=== PATIENT | male | born 1940 | race Caucasian/White ===

== ENCOUNTER 2020-09-04 09:01 | Observation (INO) ==
--- NOTE | 2020-07-01 16:09 | PAT Medication Instructions ---
Medication Instructions Date of Service July 01, 2020 Home Medications alprazolam [Xanax] 1 - 2 mg PO HS PRN aspirin [Aspir-81] 81 mg PO QAM atorvastatin 40 mg PO PM carvedilol 6.25 mg PO QAM celecoxib [Celebrex] 200 mg PO QAM cholecalciferol (vitamin D3) 125 mcg PO QAM cyanocobalamin (vitamin B-12) 2,500 mcg SUBLINGUAL QAM dutasteride 0.5 mg PO QAM fenofibrate nanocrystallized 145 mg PO QAM gabapentin 100 mg PO QAM gabapentin 100 mg PO QPM gabapentin 200 mg PO HS glipizide 10 mg PO QAM lisinopril 5 mg PO QAM kylrykjzamef-rdog-hzziy acid [Centrum] 1 tab PO QAM naproxen sodium [Aleve] 220 mg PO BID PRN omeprazole 40 mg PO QAM prednisone 100 mg PO HS tamsulosin 0.4 mg PO QAM tramadol 50 mg PO BID PRN ASK your surgeon for instructions celecoxib [Celebrex] 200 mg PO QAM naproxen sodium [Aleve] 220 mg PO BID PRN STOP taking 48 hours before surgery fenofibrate nanocrystallized 145 mg PO QAM DO NOT take the morning of surgery cholecalciferol (vitamin D3) 125 mcg PO QAM cyanocobalamin (vitamin B-12) 2,500 mcg SUBLINGUAL QAM glipizide 10 mg PO QAM lisinopril 5 mg PO QAM svvoacfjdyyz-wwcs-icwnk acid [Centrum] 1 tab PO QAM Take morning of surgery With a small sip of water, OTHERWISE NOTHING TO EAT OR DRINK AFTER MIDNIGHT: aspirin [Aspir-81] 81 mg PO QAM carvedilol 6.25 mg PO QAM dutasteride 0.5 mg PO QAM gabapentin 100 mg PO QAM omeprazole 40 mg PO QAM tamsulosin 0.4 mg PO QAM tramadol 50 mg PO BID PRN (if needed, may be taken up to four hours before surgery) Take evening before surgery alprazolam [Xanax] 1 - 2 mg PO HS PRN atorvastatin 40 mg PO PM gabapentin 100 mg PO QPM gabapentin 200 mg PO HS prednisone 100 mg PO HS tramadol 50 mg PO BID PRN (if needed) Other Notes If you have any questions please call us at [phone] or [phone] or [phone] or [phone]
--- NOTE | 2020-07-06 12:49 | Anesthesiology Consultation ---
Date of Service July 06, 2020 Assessment & Plan (1) Encounter for pre-operative examination: Chart Review Chart Review: Pending: Refer to Additional Notes / Consult section (awaiting surgeon ordered PCP and cardio clearances and preop Covid testing ) and Patient seen in Pre Admission Testing Awaiting surgeon ordered cardio clearance and PCP clearance. Will fax EKG to cardio office for review at clearance appt Per PAT appt on 07/06/20, pt resides in [facility] -travels to [facility] for medical appts. Pt usually does not wear mask in public. No known Covid positive contacts or Covid related symptoms. Educated patient to follow up with surgeon's office regarding Covid testing. Educated on importance of self quarantining, social distancing and wearing mask in public both for the patient and household contacts. Teaching & Discussion Pre-Anesthesia Teaching/Discussion Notes: Instructed NPO after midnight before surgery,except medications with 15 cc of water. Medication instructions provided according to the PAT guidelines. History Surgery Operation Date: 08/07/20 07:15 Proposed Procedures p Left Total Knee Arthroplasty - Mark Alcocer DO Height/Weight Height: 5 ft 8.5 in Weight: 89.4 kg Allergies Allergy/AdvReac Type Severity Reaction Status Date / Time No Known Allergies Allergy Verified 06/25/20 11:19 Medications Home Medications Medication Instructions Recorded Confirmed Last Taken alprazolam [Xanax] 1 - 2 mg PO HS PRN 06/25/20 06/25/20 Unknown aspirin [Aspir-81] 81 mg PO QAM 06/25/20 06/25/20 Unknown atorvastatin 40 mg PO PM 06/25/20 06/25/20 Unknown carvedilol 6.25 mg PO QAM 06/25/20 06/25/20 Unknown celecoxib [Celebrex] 200 mg PO QAM 06/25/20 06/25/20 Unknown cholecalciferol (vitamin D3) 125 mcg PO QAM 06/25/20 06/25/20 Unknown [Vitamin D3] cyanocobalamin (vitamin B-12) 2,500 mcg SUBLINGUAL QAM 06/25/20 06/25/20 Unknown [Vitamin B-12] dutasteride 0.5 mg PO QAM 06/25/20 06/25/20 Unknown fenofibrate nanocrystallized 145 mg PO QAM 06/25/20 06/25/20 Unknown gabapentin 100 mg PO QAM 06/25/20 06/25/20 Unknown gabapentin 100 mg PO QPM 06/25/20 06/25/20 Unknown gabapentin 200 mg PO HS 06/25/20 06/25/20 Unknown glipizide 10 mg PO QAM 06/25/20 06/25/20 Unknown lisinopril 5 mg PO QAM 06/25/20 06/25/20 Unknown fbcgfzujrmmk-isge-itfrt acid 1 tab PO QAM 06/25/20 06/25/20 Unknown [Centrum] naproxen sodium [Aleve] 220 mg PO BID PRN 06/25/20 06/25/20 Unknown omeprazole 40 mg PO QAM 06/25/20 06/25/20 Unknown prednisone 100 mg PO HS 06/25/20 06/25/20 Unknown tamsulosin 0.4 mg PO QAM 06/25/20 06/25/20 Unknown tramadol 50 mg PO BID PRN 06/25/20 06/25/20 Unknown Past Medical History Medical History CAD (coronary artery disease) S/p heart stent 1994 S/p 3 vessel CABG around 2015 Chronic back pain Chronic steroid use unsure why he takes Prednisone daily Diabetes mellitus, type 2 NIDDM- glucose fluctuates GERD (gastroesophageal reflux disease) Well controlled and stable Hx of concussion ~2016- no residual issues Hyperlipidemia Hypertension Myocardial Infarction ~2015 Exercise / Class Metabolic Activity III < 4 Walking/Shop/Light housework (no chest pain or SOB with short distances flat surface ambulation- activity limited due to knee and back pain ) Past Family History Family History Other No family history of adverse response to anesthesia Past Surgical History Surgical History History of cardiac cath History of cataract surgery History of colonoscopy History of coronary artery bypass graft x3 vessels at [facility]. follows with [facility] Cardiology. History of esophagogastroduodenoscopy (EGD) History of heart artery stent x1 stent. ~1994 History of tonsillectomy Past Anesthesia History No Hx of Anesthesia Complications and No Family Hx of Anesthesia Complications History of PONV No Hx of PONV and No Hx of Motion Sickness Social History Smoking Status: Never smoker Do You Dip or Chew Tobacco: No Hx Alcohol Use: Yes alcohol intake frequency: a few times a month Hx Substance Use: No substance use type: does not use Review of Systems Chronic HARLEY- stable Patient denies chest pain, shortness of breath at rest, cough, wheezing, palpitations. No hx of seizures, stroke, apnea/snoring. No hx of blood clots or blood transfusions Physical Exam Vital Signs VITALS BP 108/64 P 63 TEMP 98.2 SP02 97% RESP 16 Constitutional no acute distress ENMT Mouth: no TMJ clicking Thyromental Distance: > or= 3.5 Finger Breadths (3.5) Mallampati Class: I Full top denture Most teeth on bottom missing Neck + limited neck extension Respiratory normal respiratory effort; no respiratory distress Auscultation: lungs clear to auscultation bilaterally; no wheezes Cardiovascular Rate/Rhythm: regular rate and regular rhythm Heart Sounds: no murmur Vessels: no carotid bruit Musculoskeletal Spine: no pain with cervical ROM Neurologic moves all extremities Psychiatric Orientation: alert Testing Laboratory Results 07/06/20 13:15 07/06/20 13:15 PT 11.4 Seconds (9.0-12.0) 07/06/20 13:15 INR 1.1 (0.9-1.1) 07/06/20 13:15 APTT 23.8 Seconds (21.0-31.0) 07/06/20 13:15 Hemoglobin A1c 7.6 % (4.5-5.6) H 07/06/20 13:15 Urine Color Dark Yellow 07/06/20 13:15 Urine Appearance Clear (Clear) 07/06/20 13:15 Urine pH 5.0 (4.5-7.5) 07/06/20 13:15 Ur Specific [place] 1.024 (1.000-1.030) 07/06/20 13:15 Urine Protein Trace (Negative) H 07/06/20 13:15 Urine Glucose (UA) Negative (Negative) 07/06/20 13:15 Urine Ketones Negative (Negative) 07/06/20 13:15 Urine Nitrite Negative (Negative) 07/06/20 13:15 Ur Leukocyte Esterase Negative (Negative) 07/06/20 13:15 Urine WBC (Auto) 1-5 /hpf (0-5) 07/06/20 13:15 Urine RBC (Auto) 0-4 /hpf (0-4) 07/06/20 13:15 U Hyaline Cast (Auto) 1-5 /lpf (0-5) 07/06/20 13:15 U Epithel Cells (Auto) 10-20 /lpf (0-5) H 07/06/20 13:15 Urine Bacteria (Auto) Negative (Negative) 07/06/20 13:15 Blood Type A Positive 07/06/20 13:15 Antibody Screen NEGATIVE 07/06/20 13:15 Electrocardiogram Date: 07/06/20 Findings: + NSR @ (60) Low voltage QRS. Possible old septal and possible old lateral infarct. No previous EKGs for comparison Chest X-Ray Date: 07/06/20 Findings: + NAD and + cardiomegaly (mild) Stress Test Date: 01/15/20 Type: exercise (ECHO) Resting EF: 45 to 50% Resting EKG- NSR- no evidence of myocardial ischemia. Poor R wave progression. MPHR =90%. Resting echo demonstrates abnormal wall motionapical inferoseptal hypokinesis and mid anterior septal hypokinesis. Improved wall motion and mid anterior septal segment with dobutamine. Conclusion: Dobutamine stress echocardiogram demonstrates apical inferoseptal infarction in mid anterior septal viability. No clear-cut evidence for ischemia.
[2020-07-06 14:04] LABS: Basophils # (auto) 0.03 K/uL (0-0.2); Basophils % (auto) 0.7 %; Eosinophils % (auto) 2.5 %; Hematocrit (blood only) 36.4 % (42-52); Hemoglobin 12.6 g/dL (14.0-18.0); Immature Granulocytes # (auto) 0.01 K/uL (0.00-0.02); Immature Granulocytes % (auto) 0.2 %; Lymphocytes # (auto) 1.18 K/uL (1.2-3.4); Lymphocytes % (auto) 29.1 %; Mean Corpuscular Hemoglobin 31.7 pg (25-34); Mean Corpuscular Hgb Conc 34.6 g/dL (32-36); Mean Corpuscular Volume 91.7 fL (80-100); Mean Platelet Volume 9.7 fL (7.4-10.4); Monocytes # (auto) 0.31 K/uL (0.11-0.59); Monocytes % (auto) 7.7 %; Neutrophils # (auto) 2.42 K/uL (1.4-6.5); Neutrophils % (auto) 59.8 %; Platelet Count 174 K/uL (130-400); RDW Coefficient of Variation 12.8 % (11.5-14.5); Red Blood Count 3.97 M/uL (4.7-6.1); White Blood Count 4.05 K/uL (4.8-10.8)
--- NOTE | 2020-07-06 14:06 | XRay Report ---
XR chest Pre-admission PA/Lat CLINICAL HISTORY: Preoperative evaluation. COMPARISON STUDY: No previous studies for comparison. FINDINGS: Lung volumes are normal. Lungs are clear. There is no pneumothorax or pleural effusion. Mil d cardiomegaly is noted. There are median sternotomy wires. Mediastinal contours are normal. There is no evidence for pulmonary edema. IMPRESSION: 1. No acute cardiopulmonary findings. 2. Mild cardiomegaly. ACT 112: Negative or not required by law. Electronically signed by: Kota Decker M.D. 07/06/2020 2:04 PM
[2020-07-06 14:08] LABS: Estimated Average Glucose 171 mg/dl; Hemoglobin A1C 7.6 % (4.5-5.6)
[2020-07-06 14:20] LABS: INR 1.1 (0.9-1.1); Partial Thromboplastin Ratio 0.9; Partial Thromboplastin Time 23.8 Seconds (21.0-31.0); Prothrombin Time 11.4 Seconds (9.0-12.0)
[2020-07-06 14:37] LABS: Appearance Urine Clear (Clear); Bacteria Urine Automated Negative (Negative); Bilirubin Urine Negative (Negative); Blood Urine Negative (Negative); Color Urine Dark Yellow; Glucose Urine UA Negative (Negative); Ketones Urine Negative (Negative); Leukocyte Esterase Urine Negative (Negative); Nitrite Urine Negative (Negative); Protein Urine Trace (Negative); RBC Urine Automated 0-4 /hpf (0-4); Specific Gravity Urine 1.024 (1.000-1.030); Urobilinogen Urine Negative (Negative)
[2020-07-06 14:45] LABS: Albumin Level 3.7 gm/dl (3.4-5.0); BUN Creatinine Ratio 16.6 (10-20); Creatinine Clr Calc Pharmacy 41.1 ml/min; Est GFR (African American) 47.5; Potassium 4.6 mmol/L (3.5-5.1)
--- NOTE | 2020-07-06 15:33 | Electrocardiogram Report ---
Test Reason : Blood Pressure : / mmHG Vent. Rate : 060 BPM Atrial Rate : 060 BPM P-R Int : 186 ms QRS Dur : 088 ms QT Int : 400 ms P-R-T Axes : 063 066 119 degrees QTc Int : 400 ms Normal sinus rhythm Low voltage QRS Possible Old Septal infarct Possible Old Lateral infarct Abnormal ECG No previous ECGs available Confirmed by Wesley Kaye ([id number]) on 07/06/2020 3:33:13 PM Referred By: Mark Alcocer Confirmed By:Wesley Kaye
--- NOTE | 2020-09-03 16:37 | History & Physical Report ---
Date of Service September 03, 2020 Assessment & Plan (1) Unilateral primary osteoarthritis, left knee: Schedule a Left Total Knee Arthroplasty for 09.04.2020. All potential risks, benefits, complications, alternatives, and rehab have been discussed with the patient and he wishes to proceed. Will plan for home with home health upon d/c with ASA 81 mg BID x 30 days for post op DVT prophylaxis. (2) Genu varum of left lower extremity: History of Present Illness Chief Complaint: left knee pain Primary Care Provider: NO PCP This is a patient with chronic, worsening left knee pain with worsening deformity noted. He was treated conservatively for knee osteoarthritis but failed all conservative management. He is now being set up for surgical man agement. Allergies Allergy/AdvReac Type Severity Reaction Status Date / Time No Known Allergies Allergy Verified 08/21/20 10:11 Home Medications Home Medications Medication Instructions Recorded Confirmed Type alprazolam [Xanax] 1 - 2 mg PO HS PRN 06/25/20 08/21/20 History aspirin [Aspir-81] 81 mg PO QAM 06/25/20 08/21/20 History atorvastatin 40 mg PO PM 06/25/20 08/21/20 History carvedilol 6.25 mg PO QAM 06/25/20 08/21/20 History celecoxib [Celebrex] 200 mg PO QAM 06/25/20 08/21/20 History cholecalciferol (vitamin D3) 125 mcg PO QAM 06/25/20 08/21/20 History [Vitamin D3] cyanocobalamin (vitamin B-12) 2,500 mcg SUBLINGUAL QAM 06/25/20 08/21/20 History [Vitamin B-12] dutasteride 0.5 mg PO QAM 06/25/20 08/21/20 History fenofibrate nanocrystallized 145 mg PO QAM 06/25/20 08/21/20 History gabapentin 100 mg PO QAM 06/25/20 08/21/20 History gabapentin 100 mg PO QPM 06/25/20 08/21/20 History gabapentin 200 mg PO HS 06/25/20 08/21/20 History glipizide 10 mg PO QAM 06/25/20 08/21/20 History lisinopril 5 mg PO QAM 06/25/20 08/21/20 History zojpboddbdck-cfhe-qeqvd acid 1 tab PO QAM 06/25/20 08/21/20 History [Centrum] naproxen sodium [Aleve] 220 mg PO BID PRN 06/25/20 08/21/20 History omeprazole 40 mg PO QAM 06/25/20 08/21/20 History tamsulosin 0.4 mg PO QAM 06/25/20 08/21/20 History tramadol 50 mg PO BID PRN 06/25/20 08/21/20 History Past Med/Surg History Medical History (Updated 09/03/20 @ 16:33 by Zafar Kemp PA-C) CAD (coronary artery disease) S/p heart stent 1994 S/p 3 vessel CABG around 2015 Chronic back pain Diabetes mellitus, type 2 NIDDM- glucose fluctuates GERD (gastroesophageal reflux disease) Well controlled and stable Hx of concussion ~2016- no residual issues Hyperlipidemia Hypertension Lump in the groin left> was on abx, now resolving> reason procedure was rescheduled Myocardial Infarction ~2015 Surgical History (Updated 08/21/20 @ 10:37 by Elaina Eugene RN) History of cardiac cath 1994 History of cataract surgery History of colonoscopy History of coronary artery bypass graft x3 vessels at [facility]. follows with [facility] Cardiology. History of esophagogastroduodenoscopy (EGD) History of heart artery stent x1 stent. ~1994 History of tonsillectomy Family History Other No family history of adverse response to anesthesia Social History Smoking Status: Never smoker Second Hand Exposure: No; Do You Dip or Chew Tobacco: No; Tobacco Cessation Education Requested by Patient: No Hx Alcohol Use: Yes Alcohol type: beer Hx Substance Use: No Preferred Language: Croatian Communication Ability: Effective Social Worker School Required: No Beliefs That Will Affect Care: None Current Living Situation: Alone Current Living Situation Comment: advised to speak to surgeon about post op care since he lives alone Other Information That Helps Us Care for You: No Feels Safe at Home: Yes Safety Concerns: Feels Safe At This Time Assistive Devices: Denture - Upper Assistive Devices Comment: poor condition lower teeth (denies infection and abcesses) Physical Exam Constitutional: well developed and well nourished; no acute distress ENMT: external ear and nose normal, oropharynx normal Neck: trachea midline, no thyromegaly Respiratory: normal respiratory effort, lungs clear to auscultation Cardiovascular: Rate/Rhythm: regular rate and regular rhythm Gastrointestinal (Abdomen): normal bowel sounds, soft, nontender, no hepatosplenomegaly Musculoskeletal: Gait: + antalgic gait (left) Knee: + joint line tenderness (left medial joint line) and + varus alignment (left); no skin erythema and no ecchymosis Skin: no rashes, warm and dry Neurologic: normal touch/pain/proprioception Psychiatric: A+Ox3, euthymic affect Speech: normal rate/rhythm/volume of speech Lymphatic: no cervical or axillary lymphadenopathy
[~2020-09-04 09:01] MED LIST: ACETAMINOPHEN 500 MG TAB PO SCH; BUPIVACAINE 0.5 % 5 MG/1 ML PF 10ML VIAL ONE; CeleBREX 200 MG CAP PO SCH; FAMOTIDINE 20 MG TAB PO SCH; GABAPENTIN 300 MG CAP PO SCH; LR 500ML BOLUS, THEN 15ML/HR IV SCH; METOCLOPRAMIDE HCL 10 MG TABLET PO SCH; SODIUM CHLORIDE 0.9% 1,000 ML IV SCH; ceFAZolin 2000MG 2,000 MG/15 ML SYR IV SCH; dexAMETHasone 4 MG TAB PO SCH
[2020-09-04] MEDS ORDERED: ACETAMINOPHEN 500 MG TAB ONE (09:43)
[2020-09-04] MEDS ORDERED: CeleBREX 200 MG CAP ONE (09:43)
[2020-09-04] MEDS ORDERED: METOCLOPRAMIDE HCL 10 MG TABLET ONE (09:43)
[2020-09-04] MEDS ORDERED: FAMOTIDINE 20 MG TAB ONE (09:44)
[2020-09-04] MEDS ORDERED: GABAPENTIN 300 MG CAP ONE (09:44)
[2020-09-04] MEDS ORDERED: dexAMETHasone 4 MG TAB PO ONE (09:45)
[2020-09-04] MEDS ORDERED: ceFAZolin 2,000 MG/15 ML IV PUSH IV ONE (09:45)
[2020-09-04] MEDS ORDERED: ONDANSETRON INJ 2 MG/ML 2 ML VIAL ONE (09:46)
[2020-09-04] MEDS ORDERED: MIDAZOLAM HCL 1 MG/ML 2ML VIAL ONE (09:46)
[2020-09-04] MEDS ORDERED: fentaNYL citrate 100 MCG/2 ML VIAL ONE (09:46)
[2020-09-04] MEDS ORDERED: LIDOCAINE HCL 2% 2 ML VIAL/AMP(20MG/ML) INFIL ONE (09:46)
[2020-09-04] MEDS ORDERED: PROPOFOL IV EMULSION 10 MG/ML 20 ML VIAL IV ONE ×3 (09:46→12:38)
[2020-09-04] MEDS ORDERED: TRANEXAMIC ACID / 0.7% NACL 1000MG/100ML BAG IV ONE (09:46)
[2020-09-04] MEDS ORDERED: fentaNYL citrate 100 MCG/2 ML VIAL IV PRN (10:20)
[2020-09-04] MEDS ORDERED: ATROPINE SULFATE 0.1 MG/ML 10ML SYR IV PRN (10:20)
[2020-09-04] MEDS ORDERED: ePHEDrine sulfate 50 MG/ML AMP IV PRN (10:20)
[2020-09-04] MEDS ORDERED: ONDANSETRON INJ 2 MG/ML 2 ML VIAL IV PRN ×2 (10:20→15:27)
--- NOTE | 2020-09-04 10:44 | History & Physical Bridge Note ---
Date of Service September 04, 2020 History & Physical Bridge Note I have examined the patient, reviewed the History & Physical and in the interval since the performance of the History & Physical I have noted the following changes of clinical significance: no changes noted
[2020-09-04] MEDS ORDERED: BACITRACIN INJ 50,000 UNIT VIAL ONE (10:58)
[2020-09-04] MEDS ORDERED: ORTHO JOINT ANESTHETIC ONE (11:59)
[2020-09-04] MEDS ORDERED: ROPIVACAINE 0.5% HCL/PF 150 MG, BUPIVACAINE 0.5% MPF 30 ML, EPINEPHrine 30MG/30ML (OR U... INSTIL SCH (12:05)
--- NOTE | 2020-09-04 13:32 | Post Operative Brief Note ---
Immediate Post Op Note v1 Date of Surgery September 04, 2020 Pre & Post Diagnosis Operation Date: 08/07/20 07:15 <No data on this case meets the specified criteria> Operation Date: 09/04/20 10:35 Pre-Op Diagnosis: Unilateral Primary Osteoarthritis left knee, Left Knee genu varum, degenerative joint disease left knee, flexion contracture, left knee pain Post-Op Diagnosis: Unilateral Primary Osteoarthritis left knee, Left Knee genu varum, degenerative joint disease left knee, flexion contracture, left knee pain I identified the patient and participated in the time-out.: Yes Procedure Operation Date: 08/07/20 07:15 <No data on this case meets the specified criteria> Operation Date: 09/04/20 10:35 Actual Procedures p Left cemented total Knee Arthroplasty with Patterson and nephew journey 2 with MRI matched blocks; femur size 7, tibia size 6, posterior stabilized polyethylene size 10 mm, patella size 35 mm, fractional lengthening medial collateral ligament (Left) - Mark Alcocer DO Surgeon Mark Alcocer DO Hearing Impaired Teacher Zafar Kemp PA-C Estimated Blood Loss 15 Findings Consistent with Post-Op Diagnosis Specimens Bone and tissue left knee Drains Hemovac Drain Anesthesia Type Spinal MAC Complications none Disposition Accompanied Patient To Recovery: No Disposition: Recovery Room
--- NOTE | 2020-09-04 13:54 | Operative Report (OR) ---
DATE OF OPERATION: 09/04/2020 PREOPERATIVE DIAGNOSES: 1. Left knee osteoarthritis. 2. Left knee degenerative joint disease. 3. Genu varum. 4. Flexion contracture. 5. Left knee pain. POSTOPERATIVE DIAGNOSES: Same. PROCEDURE: 1. Left total knee arthroplasty using an MRI matched Journey II with blocks, size 7 femur, size 6 tibia, 10 mm posterior stabilized polyethylene and a 35 mm patella, cemented total knee arthroplasty. 2. Fractional lengthening of the medial collateral ligament. SURGEON: Mark Alcocer DO. RESIDENTIAL ELECTRICIAN: Zafar Kemp PA-C who was present for patient positioning, sterile prep and drape, management of retractors and instruments. He was present through the critical portions of the case including wound closure, application of sterile dressing and transport of the patient to recovery. ANESTHESIA: Spinal, MAC with adductor canal block and intraarticular local. SPECIMENS: Bone and tissue, left knee. DRAINS: Hemovac x2. COMPLICATIONS: None. BLOOD LOSS: 15 mL PERTINENT HISTORY: This is an 79-year-old gentleman who has had progressive chronic and worsening pain, deformity and loss of function of the left knee. He attempted and failed conservative management for several years including use of an assistive device, use of a brace, anti-inflammatories, rest, intra-articular steroid injections and hyaluronic acid injections, physical therapy and physician directed home exercises. The patient had progressive symptoms with inability to control symptoms with near constant pain. The patient had radiographs, which demonstrate genu varum, complete loss of medial joint space, marginal osteophytes, subchondral sclerosis and clinical findings of flexion contracture. The patient was then scheduled for surgery as indicated. All potential risks, benefits, complications, alternatives, rehab, potential for incomplete relief of symptoms, need for further surgery, DVT, PE, , persistent pain, swelling, scarring, weakness, neurovascular injury, wound complications, hardware failure, nonunion, malunion and bone fracture were discussed with the patient. The patient decided to proceed with the procedure as indicated. PROCEDURE: The patient was taken to the Operating Suite and placed supine on the Operating Room table after the patient had been administered spinal epidural anesthetic and femoral nerve sheath catheter in the preop holding area. The patient was sedated. Proper operative site was identified. The tourniquet was placed high on the left lower extremity. Left lower extremity was then sterilely prepped and draped in the usual fashion. Elevated and exsanguinated with an Esmarch bandage. Tourniquet inflated to 350 mmHg. Next a midline 10-blade scalpel incision was made directly over the middle one-third of the patella extending to the level of the tibial tubercle. The incision was deepened through the subcutaneous tissue and meticulous hemostasis with electrocautery. Full-thickness skin flaps were developed taking care to avoid neurovascular bundles. Next, median parapatellar capsular incision was made 10-blade scalpel after the superior medial corner had been marked with a marking pen for later reapproximation. Next, patella was everted. Soft tissue releases were performed of the knee including along the anterior medial corner to the level of the MCL which was protected and released adjacent to the MCL with Solitario elevator. Fat pad was resected anteriorly and small half fitch portion of tissue was resected at the superior margin of the dermal articular surface. Next, the patella thickness was measured with caliper and held in everted position with Diogo. Next, sagittal saw was used to make orthogonal cuts to the level of the patellar nose. Caliper was used to remeasure the patella and the appropriate sized patellar button, in this case size 35mm was most appropriate. The alignment guide was then put in place. Peg holes were drilled and alignment guide was then removed. Next, the femoral cutting block was placed in the distal aspect of the femur and pinned in place. Next the distal femoral cut was made based off the patient's anatomy and MRI patient matched cutting block. Next, a size 7 distal 4-in-1 cutting block was tamped in place then stabilized with pins. Next, the appropriate soft tissue retraction was made and anterior chamfer and posterior chamfer cuts were made with the sagittal saw. Next, the 4-in-1 cutting block was then removed followed by removal of all bone fragments. Next, attention was then directed toward the proximal tibia. Blunt Sang was placed posterior to the tibia to protract it anteriorly and median and lateral sharp Sang retractors were placed. Soft tissue and portion of the menisci were then resected at this time and MRI matched proximal tibial cutting block was then pinned in place and proximal tibial cut was made with sagittal saw. Alignment guide was removed. Pins were removed and the proximal fragment of the tibia was then sharply excised and removed. Next, proximal tibial tray trial size 6 was then pinned in place and this was felt to be well matched for the patient's anatomy, pinned in place and keel punch was then utilized with mallet. Keel punch was then removed and cervical laminar microwave remote sensing scientist was then placed in the medial compartment. The lateral compartment was then inspected for osteophytes and soft tissue impingement. There was found to be none. I then switched to the lateral compartment and medial compartment was then debrided of any soft tissue impingement. Next the laminar microwave remote sensing scientist was removed and the femoral trial, in this case size 7 was then malleted in place, pinned and then femoral notch milling guide was then placed anteriorly. This was then reamed and then punched with sharp punch and mallet. Next, the distal aspect of the femur was then inserted in notch guide and size 10 mm poly was inserted, reduced. Patellar button was then placed in trial and range of motion was performed. Next after range of motion and stability test was performed the implants were found to be appropriate size. Trials were all removed. The posterior capsule was injected with Orthomix. Next the joint was then cleansed with pulsatile lavage using approximately 3 liters normal saline with Bacitracin additive. Next all bony surfaces were then suctioned and drained and standard cementing technique was performed and all excess cement was then removed from around the implant site. 35 mm posterior stabilized polyethylene bearing was implanted and checked for stability. The patellar button was then cemented in place and held in place with patellar clamp. Next, double lumen 10 Filipino Hemovac drain was then placed and exiting anterolaterally and the capsule was closed using interrupted #1 Vicryl sutures. The dermis was closed using buried interrupted 2-0 Vicryl and the skin closed with skin nirmal. A sterile compressive dressing was applied from the toes to the groin and overwrapped with Nima wrap. Tourniquet was released. The patient was awakened and taken to recovery in stable condition. I attest to the content of the Intraoperative Record and any orders documented therein. Any exceptions are noted below. RADHA
--- NOTE | 2020-09-04 14:27 | XRay Report ---
LEFT KNEE 2 VIEWS History: Left total knee arthroplasty. Degenerative arthritis. Postop. FINDINGS: The patient is status post a left total knee arthroplasty. The hardware is intact. No fract ure or dislocation. Skin nirmal and surgical drains are in place. IMPRESSION: Left total knee arthroplasty. No evidence for hardware complication. ACT 112: Negative or not required by law. Electronically signed by: Aleksander Hopkins M.D. 09/04/2020 2:26 PM
--- NOTE | 2020-09-04 14:49 | Anesthesiology Progress Note ---
Date of Service September 04, 2020 Anesthesia Post Procedure Vital Signs Vital Signs: Temp Pulse Pulse Resp BP BP Pulse Ox 09/04/20 14:40 60 20 108/61 98 09/04/20 14:30 97.3 F L 64 20 116/59 L 97 09/04/20 14:20 63 16 114/62 97 09/04/20 14:10 64 14 131/61 99 09/04/20 14:00 69 14 114/61 99 09/04/20 13:50 75 18 116/71 99 09/04/20 13:46 99.3 F 71 20 117/55 L 100 09/04/20 10:05 97.9 F 72 20 132/70 98 Transfer of Care Handoff Completed per policy Notes Mental Status: alert / awake / arousable and participated in evaluation Patient Amnestic to Procedure: Yes Nausea / Vomiting: adequately controlled Pain: adequately controlled Airway Patency, RR, SpO2: stable & adequate BP & HR: stable & adequate Hydration State: stable & adequate Neuraxial Anesthesia: was administered and sensory block is resolving Anesthetic Complications: no major complications apparent and Pt Satisfied with anesthetic care
[2020-09-04] MEDS ORDERED: MAGNESIUM HYDROXIDE SUSP 30 ML UDC PO PRN (15:27)
[2020-09-04] MEDS ORDERED: bisacodyL 10 MG SUPP PR PRN (15:27)
[2020-09-04] MEDS ORDERED: ALUMINUM/MAGNESIUM SUSP 30 ML UDC PO PRN (15:27)
[2020-09-04] MEDS ORDERED: traMADol HCL 50 MG TABLET PO PRN (15:27)
[2020-09-04] MEDS ORDERED: diphenhydrAMINE Capsule 25 MG CAP PO PRN (15:27)
[2020-09-04] MEDS ORDERED: KETOROLAC TROMETHAMINE 15 MG/ML VIAL IV PRN (15:27)
[2020-09-04] MEDS ORDERED: NALOXONE HCL 0.4 MG/1 ML VIAL/CARP IV PRN (15:27)
[2020-09-04] MEDS ORDERED: HYDROmorphone INJ 0.5 MG/0.5 ML SYR IV PRN (15:27)
[2020-09-04] MEDS ORDERED: METOCLOPRAMIDE HCL INJ 5 MG/ML 2 ML VIAL IV PRN (15:27)
[2020-09-04] MEDS ORDERED: PHARMACY GLYCEMIC MGMT CONSULT PRN (15:38)
[2020-09-04] MEDS ORDERED: INFLUENZA ADMINISTRATION CHARGE ONE (15:42)
[2020-09-04] MEDS ORDERED: INFLUENZA VIRUS QUAD VACCINE 0.5 ML SYR IM ONE (15:42)
[2020-09-04] MEDS: MISSING PHYSICIAN SIGNATURE ON ORDER SCH ×3 (15:45→15:47)
[2020-09-04] MEDS ORDERED: CARBOHYDRATES FOR HYPOGLYCEMIA PO PRN (16:00)
[2020-09-04] MEDS ORDERED: DEXTROSE 50% 50 ML SYRINGE IV PRN (16:00)
[2020-09-04] MEDS: SODIUM CHLORIDE 0.9% 1000ML 1,000 ML IV SCH (16:00)
[2020-09-04] MEDS ORDERED: INSULIN GLARGINE SOLOSTAR 100 UNITS/ML 3 ML PEN SC ONE ×2 (16:00→17:30)
[2020-09-04] MEDS ORDERED: GLUCAGON FOR INJ 1 MG VIAL IM PRN (16:00)
[2020-09-04] MEDS ORDERED: GLUCOSE 40% GEL 15 GM TUBE PO PRN (16:00)
[2020-09-04] MEDS ORDERED: GLUCOSE 10 TABS/TUBE PO PRN (16:00)
[2020-09-04] MEDS: DUTASTERIDE: ORDER AWAITING ACTION SCH ×2 (16:06→23:53)
--- NOTE | 2020-09-04 16:16 | Pharmacy Report ---
Glycemic Control Consultation - Date of Service September 04, 2020 - Scope Scope: Glycemic Pharmacist consulted for glycemic control and to write orders per [facility] inpatient glycemic control protocol. - Objective Weight: 89.721 kg Accuchecks BSG (last 24hrs): 09/04/20 09/04/20 09:44 13:51 POC Glucose 222 H 188 H HbA1c: Hemoglobin A1c 7.6 % (4.5-5.6) H 07/06/20 13:15 - Recent Pertinent Medications Outpatient Anti-diabetic Regimen: * glipizide 10 mg PO qAM * A1c = 7.6 % (07/06/20) - Assessment & Plan Assessment & Plan: ASSESSMENT: * is an 79 year old male POD #0 s/p left total knee arthroplasty * Received dexamethasone 8 mg PO x 1 + orthomix perioperatively * PMH includes type 2 DM, CAD w/ history of GA (2015), HTN, and hyperlipidemia * Fasting BSG of 222 mg/dL this morning and postoperative BSG of 181 mg/dL and 281 mg/dL before dinner * Will give one-time Lantus order of 30 units x 1 and add overnight checks for this evening PLAN FOR INPATIENT GLYCEMIC CONTROL: * Holding outpatient oral diabetes medications * Basal insulin * Lantus 30 units x 1 * Bolus insulin * NovoLog per scale ACHS or Q6hrs while NPO * Goal Range: Low 110 mg/dL - High 150 mg/dL * Correction Factor: 20 mg/dL/unit * Nutritional / Prandial insulin per carb ratio of 1 unit per 7 grams CHO consumed * Will add 0000 and 0400 checks this evening with same parameters * Please note that the plan above was derived based on current level of insulin resistance and hospital stress. These recommendations are appropriate for inpatient admission only. Plan of care upon discharge will need to be reassessed to avoid potential outpatient hypo/hyperglycemia. Thank you.
--- NOTE | 2020-09-04 16:39 | Hospitalist Consultation ---
Date of Consultation September 04, 2020 Assessment & Plan (1) Genu varum of left lower extremity: Status post total knee arthroplasties 09/04/2020 Dr. Alcocer (2) Diabetes mellitus, type 2: Patient typically takes glipizide Victoza and gabapentin for neuropathy. He will be on a glycemic consult management likely with basal bolus insulin mice in the hospital (3) CAD (coronary artery disease): Patient had a CABG as mentioned. He has had no unstable anginal symptoms and did have a preop stress test in January 2020 remains on carvedilol 6.25 only once a day lisinopril 5-day atorvastatin and aspirin. (4) BPH (benign prostatic hyperplasia): Patient is on Zosyn in the last arrived for BPH having no urinary symptoms prehospital. These will be continued History of Present Illness Attending Physician: Mark Alcocer DO History of Present Illness -year-old male status post left total knee arthroplasty by Dr. Alcocer today. Patient has a history of coronary disease status post CABG. He has had a preoperative dobutamine stress echo due to his arthritis which was unremarkable and this was in January 2020. He otherwise is stable postoperatively without any complaints or problems Allergies Allergy/AdvReac Type Severity Reaction Status Date / Time No Known Allergies Allergy Verified 09/04/20 09:57 Home Medications Home Medications Medication Instructions Recorded Confirmed Type alprazolam [Xanax] 1 - 2 mg PO HS PRN 06/25/20 09/04/20 History aspirin [Aspir-81] 81 mg PO QAM 06/25/20 09/04/20 History atorvastatin 40 mg PO PM 06/25/20 09/04/20 History carvedilol 6.25 mg PO QAM 06/25/20 09/04/20 History cholecalciferol (vitamin D3) 125 mcg PO QAM 06/25/20 09/04/20 History [Vitamin D3] cyanocobalamin (vitamin B-12) 2,500 mcg SUBLINGUAL QAM 06/25/20 09/04/20 History [Vitamin B-12] dutasteride 0.5 mg PO QAM 06/25/20 09/04/20 History fenofibrate nanocrystallized 145 mg PO QAM 06/25/20 09/04/20 History gabapentin 100 mg PO QAM 06/25/20 09/04/20 History gabapentin 100 mg PO QPM 06/25/20 09/04/20 History gabapentin 200 mg PO HS 06/25/20 09/04/20 History glipizide 10 mg PO QAM 06/25/20 09/04/20 History lisinopril 5 mg PO QAM 06/25/20 09/04/20 History sizrrqwtixmt-yulq-pdmni acid 1 tab PO QAM 06/25/20 09/04/20 History [Centrum] naproxen sodium [Aleve] 220 mg PO BID PRN 06/25/20 09/04/20 History omeprazole 40 mg PO QAM 06/25/20 09/04/20 History tamsulosin 0.4 mg PO QAM 06/25/20 09/04/20 History tramadol 50 mg PO BID PRN 06/25/20 09/04/20 History Patient History Medical History (Updated 09/04/20 @ 16:37 by Marvin Muro MD) CAD (coronary artery disease) S/p heart stent 1994 S/p 3 vessel CABG around 2015 Chronic back pain Diabetes mellitus, type 2 NIDDM- glucose fluctuates GERD (gastroesophageal reflux disease) Well controlled and stable Hx of concussion ~2016- no residual issues Hyperlipidemia Hypertension Lump in the groin left> was on abx, now resolving> reason procedure was rescheduled Myocardial Infarction ~2015 Surgical History History of cardiac cath 1994 History of cataract surgery History of colonoscopy History of coronary artery bypass graft x3 vessels at [facility]. follows with [facility] Cardiology. History of esophagogastroduodenoscopy (EGD) History of heart artery stent x1 stent. ~1994 History of tonsillectomy Family History Other No family history of adverse response to anesthesia Social History Smoking Status: Never smoker Second Hand Exposure: No; Do You Dip or Chew Tobacco: No; Tobacco Cessation Education Requested by Patient: No Hx Alcohol Use: Yes Alcohol type: beer Hx Substance Use: No Preferred Language: German Communication Ability: Effective Poultry Packer Required: No Beliefs That Will Affect Care: None Current Living Situation: Alone Current Living Situation Comment: advised to speak to surgeon about post op care since he lives alone Other Information That Helps Us Care for You: No Feels Safe at Home: Yes Safety Concerns: Feels Safe At This Time Assistive Devices: Denture - Upper Assistive Devices Comment: poor condition lower teeth (denies infection and abcesses) Review of Systems Review of Systems: Mild distress and fatigue no headache, blurry or double vision no speech or swallowing issues no chest pain, pressure or palpitations no shortness of breath, cough or wheezes no abdominal pain, nausea or vomiting, diarrhea or constipation no dysuria, hematuria or frequency Patient does have bilateral knee pain the left is worse than the right Persistent daily back pain worse with flexion in sitting down standing up no bruising, bleeding or rashes no focal signs of weakness or numbness or altered sensation no complaints of anxiety or depression. Physical Exam Physical Exam: The patient appeared well nourished and normally developed. Vital signs as documented. Head exam is normocephalic atraumatic no scleral icterus Neck is without JVD, thyromegaly, or carotid bruits. Lungs are clear to auscultation, no focal loss of breath sounds Cardiac exam, Rhythm is regular.. No murmurs, rubs or gallops. Abdominal exam reveals normal bowel sounds, soft non tender, no masses Extremities patient still amnestic from surgery likely with a nerve block capillary refill and warmth are intact distally Neurologic exam is alert and oriented, Skin is without bruises or rashes Psychologically is without concerns for anxiety or depression. Results & Data Results & Data ([facility]) Vital Signs (Past 12 Hours) Vital Signs Temp Pulse Pulse Resp BP BP Pulse Ox 09/04/20 16:12 97.3 F L 59 L 20 114/77 99 09/04/20 15:42 97.3 F L 61 16 118/74 99 09/04/20 15:10 97.5 F L 58 L 18 110/43 L 98 09/04/20 14:58 61 20 109/60 97 09/04/20 14:50 63 20 102/56 L 94 09/04/20 14:40 60 20 108/61 98 09/04/20 14:30 97.3 F L 64 20 116/59 L 97 09/04/20 14:20 63 16 114/62 97 09/04/20 14:10 64 14 131/61 99 09/04/20 14:00 69 14 114/61 99 09/04/20 13:50 75 18 116/71 99 09/04/20 13:46 99.3 F 71 20 117/55 L 100 09/04/20 10:05 97.9 F 72 20 132/70 98 PG Care Time/CCT Total # of Minutes Spent Total Time Spent with Patient: Total time spent is greater than 50% in coordination of care (as documented) at patient's floor/unit and/or counseling patient: Coding Level of Care Code 82425 Inpt Consult Level 3 Diagnoses Genu varum of left lower extremity M21.162 Diabetes mellitus, type 2 E11.9 CAD (coronary artery disease) I25.10 BPH (benign prostatic hyperplasia) N40.0
[2020-09-04] MEDS: ceFAZolin 2000MG 2,000 MG/15 ML SYR IV SCH (17:22)
[2020-09-04] MEDS: ACETAMINOPHEN 500 MG TAB PO SCH ×2 (17:22→20:52)
[2020-09-04] MEDS: INSULIN ASPART 100 UNITS/ML 3 ML PEN SC SCH ×3 (18:05→23:48)
[2020-09-04] MEDS ORDERED: TRANEXAMIC ACID / 0.7% NACL 1,000 MG/100 ML BAG IV SCH (20:00)
[2020-09-04] MEDS: DOCUSATE SODIUM 100 MG CAP PO SCH (20:51)
[2020-09-04] MEDS: SENNA 8.6 MG TAB PO SCH (20:51)
[2020-09-04] MEDS: ATORVASTATIN 40 MG TAB PO SCH (20:52)
[2020-09-04] MEDS: GABAPENTIN 100 MG CAP PO SCH (20:52)
[2020-09-04] MEDS ORDERED: GABAPENTIN 100 MG CAP PO SCH (21:00)
[2020-09-04] MEDS: ASPIRIN 81 MG ECTAB PO SCH (21:44)
[2020-09-04] MEDS: ALPRAZolam 0.5 MG TABLET PO PRN (23:42)
[2020-09-04] MEDS: traZODone HCL 100 MG TAB PO SCH (23:42)
[2020-09-05] MEDS: ceFAZolin 2000MG 2,000 MG/15 ML SYR IV SCH
[2020-09-05] MEDS: SODIUM CHLORIDE 0.9% 1000ML 1,000 ML IV SCH (02:02)
[2020-09-05] MEDS: INSULIN ASPART 100 UNITS/ML 3 ML PEN SC SCH ×5 (04:17→21:41)
[2020-09-05] MEDS: ACETAMINOPHEN 500 MG TAB PO SCH ×3 (05:49→21:51)
[2020-09-05] MEDS ORDERED: ROPIVACAINE 0.5% HCL/PF 150 MG, BUPIVACAINE 0.5% MPF 30 ML, EPINEPHrine 30MG/30ML (OR U... INSTIL SCH (06:00)
[2020-09-05 06:26] LABS: Hematocrit (blood only) 25.5 % (42-52); Hemoglobin 8.9 g/dL (14.0-18.0); Mean Corpuscular Hemoglobin 31.3 pg (25-34); Mean Corpuscular Hgb Conc 34.9 g/dL (32-36); Mean Corpuscular Volume 89.8 fL (80-100); Mean Platelet Volume 9.8 fL (7.4-10.4); Platelet Count 148 K/uL (130-400); RDW Coefficient of Variation 12.9 % (11.5-14.5); Red Blood Count 2.84 M/uL (4.7-6.1); White Blood Count 8.22 K/uL (4.8-10.8)
[2020-09-05 06:52] LABS: BUN Creatinine Ratio 16.6 (10-20); Calcium 8.1 mg/dl (8.5-10.1); Creatinine Clr Calc Pharmacy 34.7 ml/min; Est GFR (African American) 38.5; Est GFR (Non-African American) 33.2; Potassium 4.6 mmol/L (3.5-5.1)
[2020-09-05] MEDS ORDERED: carvediloL 6.25 MG TAB PO SCH (09:00)
[2020-09-05] MEDS ORDERED: glipiZIDE 5 MG TAB PO SCH (09:00)
[2020-09-05] MEDS ORDERED: lisinopril 5 MG TAB PO SCH (09:00)
--- NOTE | 2020-09-05 09:07 | Orthopedic Progress Note ---
Date of Service September 05, 2020 Assessment & Plan (1) Unilateral primary osteoarthritis, left knee: Stop day 1 status post left total knee arthroplasty. PT/OT protocols. Weightbearing as tolerated. DVT prophylaxis-aspirin p.o. twice daily, SCDs, KIKA goss. Pain management as written. DC planning-patient planning on home health services upon discharge. Admission and Anticipated Discharge Date Admission Date: September 04, 2020 Supervising Physician Co-Signing Physician Notes Patient seen and examined. Postop day 1 after his left total knee. He is doing extremely well. Mobilizing well and has excellent range of motion already. He denies any pain. He should be ready for discharge tomorrow. He will work on arranging a ride. Subjective Postop day 1 Patient sitting up at the bedside eating breakfast. Pain controlled. Denies shortness of breath, chest pain, lightheadedness. Physical Exam Physical Exam: Dressings are clean, dry, and intact. Calves are soft nontender. Neurovascular is intact. Toes are mobile. He has good dorsiflexion and plantarflexion of the left foot. Patient has had 50 mL out of the Hemovac from the latest shift. Results & Data ([facility]) Vital Signs (Past 12 Hours) Vital Signs Temp Pulse Resp BP Pulse Ox 09/05/20 07:45 36.8 C 67 16 93/58 L 96 09/05/20 03:55 36.5 C 71 16 90/51 L 97 09/04/20 23:49 36.6 C 64 16 94/55 L 98 Laboratory Results Laboratory Results WBC 8.22 K/uL (4.8-10.8) 09/05/20 05:50 RBC 2.84 M/uL (4.7-6.1) L 09/05/20 05:50 Hgb 8.9 g/dL (14.0-18.0) L 09/05/20 05:50 Hct 25.5 % (42-52) L 09/05/20 05:50 MCV 89.8 fL (80-100) 09/05/20 05:50 MCH 31.3 pg (25-34) 09/05/20 05:50 MCHC 34.9 g/dL (32-36) 09/05/20 05:50 RDW Std Deviation 42.0 fL (36.4-46.3) 09/05/20 05:50 RDW Coeff of Jim 12.9 % (11.5-14.5) 09/05/20 05:50 Plt Count 148 K/uL (130-400) 09/05/20 05:50 MPV 9.8 fL (7.4-10.4) 09/05/20 05:50 Immature Gran % (Auto) 0.2 % 07/06/20 13:15 Neut % (Auto) 59.8 % 07/06/20 13:15 Lymph % (Auto) 29.1 % 07/06/20 13:15 [place] % (Auto) 7.7 % 07/06/20 13:15 Eos % (Auto) 2.5 % 07/06/20 13:15 Baso % (Auto) 0.7 % 07/06/20 13:15 Neut # (Auto) 2.42 K/uL (1.4-6.5) 07/06/20 13:15 Lymph # (Auto) 1.18 K/uL (1.2-3.4) L 07/06/20 13:15 [place] # (Auto) 0.31 K/uL (0.11-0.59) 07/06/20 13:15 Eos # (Auto) 0.10 K/uL (0-0.5) 07/06/20 13:15 Baso # (Auto) 0.03 K/uL (0-0.2) 07/06/20 13:15 Immature Gran # (Auto) 0.01 K/uL (0.00-0.02) 07/06/20 13:15 PT 11.4 Seconds (9.0-12.0) 07/06/20 13:15 INR 1.1 (0.9-1.1) 07/06/20 13:15 APTT 23.8 Seconds (21.0-31.0) 07/06/20 13:15 PTT Ratio 0.9 07/06/20 13:15 Sodium 138 mmol/L (136-145) 09/05/20 05:50 Potassium 4.6 mmol/L (3.5-5.1) 09/05/20 05:50 Chloride 108 mmol/L (98-107) H 09/05/20 05:50 Carbon Dioxide 28 mmol/L (21-32) 09/05/20 05:50 Anion Gap 2.0 (3-11) L 09/05/20 05:50 BUN 31 mg/dl (7-18) H 09/05/20 05:50 Creatinine 1.87 mg/dl (0.6-1.4) H 09/05/20 05:50 Est Cr Clr Drug Dosing 34.7 ml/min 09/05/20 05:50 Est GFR ( Amer) 38.5 09/05/20 05:50 Est GFR (Non-Af Amer) 33.2 09/05/20 05:50 BUN/Creatinine Ratio 16.6 (-20) 09/05/20 05:50 Glucose 148 mg/dl (70-99) H 09/05/20 05:50 POC Glucose 136 mg/dl (70-99) H 09/05/20 07:47 Estimat Average Glucose 171 mg/dl 07/06/20 13:15 Hemoglobin A1c 7.6 % (4.5-5.6) H 07/06/20 13:15 Calcium 8.1 mg/dl (8.5-10.1) L 09/05/20 05:50 Albumin 3.7 gm/dl (3.4-5.0) 07/06/20 13:15 Urine Color Dark Yellow 07/06/20 13:15 Urine Appearance Clear (Clear) 07/06/20 13:15 Urine pH 5.0 (4.5-7.5) 07/06/20 13:15 Ur Specific [place] 1.024 (1.000-1.030) 07/06/20 13:15 Urine Protein Trace (Negative) H 07/06/20 13:15 Urine Glucose (UA) Negative (Negative) 07/06/20 13:15 Urine Ketones Negative (Negative) 07/06/20 13:15 Urine Blood Negative (Negative) 07/06/20 13:15 Urine Nitrite Negative (Negative) 07/06/20 13:15 Urine Bilirubin Negative (Negative) 07/06/20 13:15 Urine Urobilinogen Negative (Negative) 07/06/20 13:15 Ur Leukocyte Esterase Negative (Negative) 07/06/20 13:15 Urine WBC (Auto) 1-5 /hpf (0-5) 07/06/20 13:15 Urine RBC (Auto) 0-4 /hpf (0-4) 07/06/20 13:15 U Hyaline Cast (Auto) 1-5 /lpf (0-5) 07/06/20 13:15 U Epithel Cells (Auto) 10-20 /lpf (0-5) H 07/06/20 13:15 Urine Bacteria (Auto) Negative (Negative) 07/06/20 13:15 Blood Type A Positive 07/06/20 13:15 Antibody Screen NEGATIVE 07/06/20 13:15
[2020-09-05] MEDS: DOCUSATE SODIUM 100 MG CAP PO SCH ×2 (09:09→21:49)
[2020-09-05] MEDS: PANTOprazole 40 MG TAB PO SCH (09:09)
[2020-09-05] MEDS: CYANOCOBALAMIN (VITAMIN B-12) 2,500 MCG TAB.SUBL SL SCH (09:09)
[2020-09-05] MEDS: CEROVITE ADV FORMULA TAB PO SCH (09:10)
[2020-09-05] MEDS: FENOFIBRATE NANOCRYSTALLIZED 145 MG TABLET PO SCH (09:10)
[2020-09-05] MEDS: CHOLECALCIFEROL 1,000 UNITS 25 MCG TAB PO SCH (09:10)
[2020-09-05] MEDS: TAMSULOSIN HCL 0.4 MG CAP PO SCH (09:10)
[2020-09-05] MEDS: MULTIVITAMIN TAB PO SCH (09:11)
[2020-09-05] MEDS: GABAPENTIN 100 MG CAP PO SCH ×3 (09:11→21:46)
[2020-09-05] MEDS: ASPIRIN 81 MG ECTAB PO SCH ×2 (09:11→21:46)
[2020-09-05] MEDS: DUTASTERIDE: ORDER AWAITING ACTION SCH ×3 (09:12→23:54)
[2020-09-05] MEDS ORDERED: SODIUM CHLORIDE 0.9% 500 ML IV SCH (09:45)
--- NOTE | 2020-09-05 10:37 | Pharmacy Report ---
Pharmacy Glycemic Short Note 2 - Date of Service September 05, 2020 - Glycemic Short BSG Results (Last 24 hours): 09/04/20 09/04/20 09/04/20 13:51 17:25 17:26 Glucose POC Glucose 188 H 316 H* 281 H 09/04/20 09/04/20 09/04/20 20:32 20:34 23:46 Glucose POC Glucose 330 H* 322 H* 241 H 09/05/20 09/05/20 09/05/20 03:56 05:50 07:47 Glucose 148 H POC Glucose 187 H 136 H ASSESSMENT: * is an 79 year old male POD #0 s/p left total knee arthroplasty * Received dexamethasone 8 mg PO x 1 + orthomix perioperatively * PMH includes type 2 DM, CAD w/ history of [place] (2016), HTN, and hyperlipidemia * Fasting BSG of 222 mg/dL this morning and postoperative BSG of 181 mg/dL and 281 mg/dL before dinner * Will give one-time Lantus order of 30 units x 1 and add overnight checks for this evening 09/05 * Patient received total of 57 units of insulin yesterday, of which 30 were basal insulin to cover steroids * Fasting BSG much improved at 136 mg/dL - hold basal / may add scale for HS depending how BSGs trend * Continue same CF/CR for now / may need to loosen once steroids wear off PLAN FOR INPATIENT GLYCEMIC CONTROL: * Holding outpatient oral diabetes medications * Basal insulin * Lantus - 0-10 units HS based upon BSG value * Bolus insulin * NovoLog per scale ACHS or Q6hrs while NPO * Goal Range: Low 110 mg/dL - High 150 mg/dL * Correction Factor: 20 mg/dL/unit * Nutritional / Prandial insulin per carb ratio of 1 unit per 7 grams CHO consumed * Will add 0000 and 0400 checks this evening with same parameters PLAN FOR DISCHARGE: * A1c 7.6% - goal ~7% reasonable. Sulfonylureas such as glipizide should be used with caution in elderly population due to increased hypoglycemic effects. Would recommend continuation of home diabetic agent as long as patient is not reporting hypoglycemia.
--- NOTE | 2020-09-05 12:32 | Anesthesiology Progress Note ---
Date of Service September 05, 2020 Anesthesia Post Procedure Vital Signs Vital Signs: Temp Pulse Pulse Resp BP BP Pulse Ox 09/05/20 12:17 36.7 C 77 18 104/57 L 98 09/05/20 09:04 74 118/64 97 09/05/20 07:45 36.8 C 67 16 93/58 L 96 09/05/20 03:55 36.5 C 71 16 90/51 L 97 09/04/20 23:49 36.6 C 64 16 94/55 L 98 09/04/20 19:43 36.3 C L 66 20 105/65 99 09/04/20 18:10 36.3 C L 61 20 100/58 L 98 09/04/20 17:13 36.4 C L 57 L 20 123/73 97 09/04/20 16:12 36.3 C L 59 L 20 114/77 99 09/04/20 15:42 36.3 C L 61 16 118/74 99 09/04/20 15:10 36.4 C L 58 L 18 110/43 L 98 09/04/20 14:58 61 20 109/60 97 09/04/20 14:50 63 20 102/56 L 94 09/04/20 14:40 60 20 108/61 98 09/04/20 14:30 36.3 C L 64 20 116/59 L 97 09/04/20 14:20 63 16 114/62 97 09/04/20 14:10 64 14 131/61 99 09/04/20 14:00 69 14 114/61 99 09/04/20 13:50 75 18 116/71 99 09/04/20 13:46 37.4 C 71 20 117/55 L 100 Transfer of Care Handoff Completed per policy Notes Mental Status: alert / awake / arousable and participated in evaluation Patient Amnestic to Procedure: Yes Nausea / Vomiting: adequately controlled Pain: adequately controlled Airway Patency, RR, SpO2: stable & adequate BP & HR: stable & adequate Hydration State: stable & adequate Anesthetic Complications: no major complications apparent and Pt Satisfied with anesthetic care
--- NOTE | 2020-09-05 13:47 | Hospitalist Progress Note ---
Date of Service September 05, 2020 Assessment & Plan (1) S/P total knee arthroplasty: Status post left TKA on 09/[address] Alcocer Doing well postoperatively Pain control, bowel regimen, and DVT prophylaxis with 81 mg p.o. twice daily, SCDs Plan for home likely tomorrow (2) Diabetes mellitus, type 2: Patient typically takes glipizide and Victoza for his diabetes at home; and gabapentin for neuropathy With significant hyperglycemia here-pharmacy is managing Now better controlled today Continue Lantus and NovoLog (3) Acute renal insufficiency: With increasing creatinine to 1.87 today from baseline of 1.57 on preoperative labs He did receive his lisinopril this morning-held this for tomorrow Discontinued Toradol and would not recommend any other NSAIDs We will give 500 mL of normal saline and encouraged p.o. intake Blood pressures are little low and he had some acute blood loss anemia which is likely contributing to some mild renal insufficiency Follow BMP in the morning Renally dose medications (4) CAD (coronary artery disease): Patient had a CABG He has had no unstable anginal symptoms and did have a preop stress test in January 2020 -Remains on carvedilol 6.25 but it is actually prescribed to twice daily-changes in the home medication reconciliation and for here -Continue atorvastatin and aspirin FEN holding home lisinopril for renal insufficiency as above (5) BPH (benign prostatic hyperplasia): No acute issues Continue tamsulosin, dutasteride (6) GERD (gastroesophageal reflux disease): Continue Protonix (7) Acute blood loss anemia: Hemoglobin dropped to 8.9 from 12.6 preoperatively, secondary to blood loss from surgery No transfusion needed Blood pressure borderline low-lisinopril to be held as above Follow CBC in the morning (8) Anxiety: Continue home Xanax 1 mg p.o. twice daily as needed Continue trazodone at bedtime (9) Hyperlipidemia: Continue home fenofibrate (10) DVT prophylaxis: Aspirin 81 mg p.o. twice daily SCDs Disposition-continued stay, but likely home tomorrow Hospitalist service will continue to follow along Admission and Anticipated Discharge Date Admission Date: September 04, 2020 Subjective Patient feeling well. Denies any issues. Pain is controlled. 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 Blood pressures were little low overnight, he did receive his lisinopril this morning and creatinine is up slightly from previous. He reports he is eating and drinking well. Moved his bowels this morning. Review of Systems Review of Systems: All systems reviewed & are unremarkable except as noted in HPI & below Physical Exam Constitutional: WD/WN, vitals as above Eyes: + anicteric sclerae ENMT: external ear and nose normal, oropharynx normal Neck: trachea midline, no thyromegaly Respiratory: normal respiratory effort, lungs clear to auscultation Cardiovascular: RRR, no murmur, no edema Chest (Breasts): Chest: normal inspection of chest Gastrointestinal (Abdomen): normal bowel sounds, soft, nontender, no hepatosplenomegaly Musculoskeletal: Extremities: + extremities abnormal to inspection (Left lower extremity with Nima wrap in place, not removed), no cyanosis and no clubbing Skin: no rashes, warm and dry Neurologic: moves all extremities and awake; no focal motor deficits Psychiatric: A+Ox3, euthymic affect Lymphatic: no lymphedema Results & Data Results & Data ([facility]) Vital Signs (Past 12 Hours) Vital Signs Temp Pulse Resp BP BP Pulse Ox 09/05/20 12:17 36.7 C 77 18 104/57 L 98 09/05/20 09:04 74 118/64 97 09/05/20 07:45 36.8 C 67 16 93/58 L 96 09/05/20 03:55 36.5 C 71 16 90/51 L 97 Laboratory Results 09/05/20 09/05/20 09/05/20 Range/Units 12:02 07:47 05:50 WBC (4.8-10.8) K/uL RBC (4.7-6.1) M/uL Hgb (14.0-18.0) g/dL Hct (42-52) % MCV (80-100) fL MCH (25-34) pg MCHC (32-36) g/dL RDW Std Deviation (36.4-46.3) fL RDW Coeff of Jim (11.5-14.5) % Plt Count (130-400) K/uL MPV (7.4-10.4) fL Sodium 138 (136-145) mmol/L Potassium 4.6 (3.5-5.1) mmol/L Chloride 108 H (98-107) mmol/L Carbon Dioxide 28 (21-32) mmol/L Anion Gap 2.0 L (3-11) BUN 31 H (7-18) mg/dl Creatinine 1.87 H (0.6-1.4) mg/dl Est Cr Clr Drug Dosing 34.7 ml/min Est GFR ( Amer) 38.5 Est GFR (Non-Af Amer) 33.2 BUN/Creatinine Ratio 16.6 (10-20) Glucose 148 H (70-99) mg/dl POC Glucose 130 H 136 H (70-99) mg/dl Calcium 8.1 L (8.5-10.1) mg/dl 09/05/20 09/05/20 09/04/20 Range/Units 05:50 03:56 23:46 WBC 8.22 (4.8-10.8) K/uL RBC 2.84 L (4.7-6.1) M/uL Hgb 8.9 L (14.0-18.0) g/dL Hct 25.5 L (42-52) % MCV 89.8 (80-100) fL MCH 31.3 (25-34) pg MCHC 34.9 (32-36) g/dL RDW Std Deviation 42.0 (36.4-46.3) fL RDW Coeff of Jim 12.9 (11.5-14.5) % Plt Count 148 (130-400) K/uL MPV 9.8 (7.4-10.4) fL Sodium (136-145) mmol/L Potassium (3.5-5.1) mmol/L Chloride (98-107) mmol/L Carbon Dioxide (21-32) mmol/L Anion Gap (3-11) BUN (7-18) mg/dl Creatinine (0.6-1.4) mg/dl Est Cr Clr Drug Dosing ml/min Est GFR ( Amer) Est GFR (Non-Af Amer) BUN/Creatinine Ratio (10-20) Glucose (70-99) mg/dl POC Glucose 187 H 241 H (70-99) mg/dl Calcium (8.5-10.1) mg/dl 09/04/20 09/04/20 09/04/20 Range/Units 20:34 20:32 17:26 WBC (4.8-10.8) K/uL RBC (4.7-6.1) M/uL Hgb (14.0-18.0) g/dL Hct (42-52) % MCV (80-100) fL MCH (25-34) pg MCHC (32-36) g/dL RDW Std Deviation (36.4-46.3) fL RDW Coeff of Jim (11.5-14.5) % Plt Count (130-400) K/uL MPV (7.4-10.4) fL Sodium (136-145) mmol/L Potassium (3.5-5.1) mmol/L Chloride (98-107) mmol/L Carbon Dioxide (21-32) mmol/L Anion Gap (3-11) BUN (7-18) mg/dl Creatinine (0.6-1.4) mg/dl Est Cr Clr Drug Dosing ml/min Est GFR ( Amer) Est GFR (Non-Af Amer) BUN/Creatinine Ratio (-20) Glucose (70-99) mg/dl POC Glucose 322 H* 330 H* 281 H (70-99) mg/dl Calcium (8.5-10.1) mg/dl 09/04/20 09/04/20 Range/Units 17:25 13:51 WBC (4.8-10.8) K/uL RBC (4.7-6.1) M/uL Hgb (14.0-18.0) g/dL Hct (42-52) % MCV (80-100) fL MCH (25-34) pg MCHC (32-36) g/dL RDW Std Deviation (36.4-46.3) fL RDW Coeff of Jim (11.5-14.5) % Plt Count (130-400) K/uL MPV (7.4-10.4) fL Sodium (136-145) mmol/L Potassium (3.5-5.1) mmol/L Chloride (98-107) mmol/L Carbon Dioxide (21-32) mmol/L Anion Gap (3-11) BUN (7-18) mg/dl Creatinine (0.6-1.4) mg/dl Est Cr Clr Drug Dosing ml/min Est GFR ( Amer) Est GFR (Non-Af Amer) BUN/Creatinine Ratio (10-20) Glucose (70-99) mg/dl POC Glucose 316 H* 188 H (70-99) mg/dl Calcium (8.5-10.1) mg/dl PG Care Time/CCT Total # of Minutes Spent Total Time Spent with Patient: Total time spent is greater than 50% in coordination of care (as documented) at patient's floor/unit and/or counseling patient: Coding Level of Care Code 74712 Subseq Hosp Care Lvl 3 Diagnoses S/P total knee arthroplasty Z96.659 Diabetes mellitus, type 2 E11.9 Acute renal insufficiency N28.9 CAD (coronary artery disease) I25.10 BPH (benign prostatic hyperplasia) N40.0 GERD (gastroesophageal reflux disease) K21.9 Acute blood loss anemia D62 Anxiety F41.9 Hyperlipidemia E78.5 DVT prophylaxis Z29.9
[2020-09-05] MEDS: oxyCODONE HCL IR 5 MG TAB (IMMEDIATE RELEASE) PO PRN (18:18)
[2020-09-05] MEDS: carvediloL 6.25 MG TAB PO SCH (21:43)
[2020-09-05] MEDS: ATORVASTATIN 40 MG TAB PO SCH (21:46)
[2020-09-05] MEDS: SENNA 8.6 MG TAB PO SCH (21:47)
[2020-09-05] MEDS: traZODone HCL 100 MG TAB PO SCH (23:51)
[2020-09-05] MEDS: ALPRAZolam 0.5 MG TABLET PO PRN (23:52)
[2020-09-06] MEDS: ACETAMINOPHEN 500 MG TAB PO SCH ×3 (05:08→21:39)
[2020-09-06 06:16] LABS: Basophils # (auto) 0.02 K/uL (0-0.2); Basophils % (auto) 0.3 %; Eosinophils # (auto) 0.23 K/uL (0-0.5); Hematocrit (blood only) 24.3 % (42-52); Hemoglobin 8.7 g/dL (14.0-18.0); Lymphocytes # (auto) 1.78 K/uL (1.2-3.4); Lymphocytes % (auto) 30.8 %; Mean Corpuscular Hemoglobin 32.5 pg (25-34); Mean Corpuscular Hgb Conc 35.8 g/dL (32-36); Mean Corpuscular Volume 90.7 fL (80-100); Mean Platelet Volume 9.6 fL (7.4-10.4); Monocytes # (auto) 0.54 K/uL (0.11-0.59); Monocytes % (auto) 9.3 %; Neutrophils # (auto) 3.21 K/uL (1.4-6.5); Neutrophils % (auto) 55.6 %; Platelet Count 130 K/uL (130-400); RDW Coefficient of Variation 13.2 % (11.5-14.5); RDW Standard Deviation 43.5 fL (36.4-46.3); Red Blood Count 2.68 M/uL (4.7-6.1); White Blood Count 5.78 K/uL (4.8-10.8)
[2020-09-06 06:50] LABS: Calcium 8.7 mg/dl (8.5-10.1); Creatinine Clr Calc Pharmacy 35.9 ml/min; Est GFR (Non-African American) 34.5
--- NOTE | 2020-09-06 07:33 | Orthopedic Progress Note ---
Date of Service September 06, 2020 Assessment & Plan (1) Unilateral primary osteoarthritis, left knee: Stop day 2 status post left total knee arthroplasty. PT/OT protocols. Weightbearing as tolerated. DVT prophylaxis-aspirin p.o. twice daily, SCDs, KIKA goss. Pain management as written. Creatinine slowly coming down. I will discuss this with Dr. Bond and have she or her team see the patient this morning. Possible discharge home today DC planning-patient planning on home health services upon discharge. Admission and Anticipated Discharge Date Admission Date: September 04, 2020 Supervising Physician Co-Signing Physician Notes Patient seen and examined. He is moving his knee well after the "buckling" incident last night. He scraped his left elbow, but did not hit the floor. He denies significant pain. Plan for discharge tomorrow if he does well overnight tonight. Subjective Postop day 2 Patient currently awake and alert lying in bed. No complaints this morning. Pain controlled. Denies shortness of breath, chest pain, lightheadedness. I spoke to nursing this morning of which they stated the patient try to get up to the bathroom by himself last night without a walker. Nursing was able to get to him to help him in the bathroom. There was question of some confusion in the patient's knees slightly buckled and he had to be helped back to his bed. Currently he is mentating clearly this morning and is oriented x3. Physical Exam Physical Exam: Gennaro dressing is clean, dry, intact. Calves are soft nontender. Neurovascular is intact. Toes are mobile. Results & Data ([facility]) Vital Signs (Past 12 Hours) Vital Signs Temp Pulse Resp BP BP Pulse Ox 09/06/20 06:57 36.5 C 66 16 107/61 97 09/05/20 23:43 36.8 C 73 16 104/64 98 Laboratory Results Laboratory Results WBC 5.78 K/uL (4.8-10.8) 09/06/20 06:00 RBC 2.68 M/uL (4.7-6.1) L 09/06/20 06:00 Hgb 8.7 g/dL (14.0-18.0) L 09/06/20 06:00 Hct 24.3 % (42-52) L 09/06/20 06:00 MCV 90.7 fL (80-100) 09/06/20 06:00 MCH 32.5 pg (25-34) 09/06/20 06:00 MCHC 35.8 g/dL (32-36) 09/06/20 06:00 RDW Std Deviation 43.5 fL (36.4-46.3) 09/06/20 06:00 RDW Coeff of Jim 13.2 % (11.5-14.5) 09/06/20 06:00 Plt Count 130 K/uL (130-400) 09/06/20 06:00 MPV 9.6 fL (7.4-10.4) 09/06/20 06:00 Immature Gran % (Auto) 0.0 % 09/06/20 06:00 Neut % (Auto) 55.6 % 09/06/20 06:00 Lymph % (Auto) 30.8 % 09/06/20 06:00 Bledsoe % (Auto) 9.3 % 09/06/20 06:00 Eos % (Auto) 4.0 % 09/06/20 06:00 Baso % (Auto) 0.3 % 09/06/20 06:00 Neut # (Auto) 3.21 K/uL (1.4-6.5) 09/06/20 06:00 Lymph # (Auto) 1.78 K/uL (1.2-3.4) 09/06/20 06:00 Bledsoe # (Auto) 0.54 K/uL (0.11-0.59) 09/06/20 06:00 Eos # (Auto) 0.23 K/uL (0-0.5) 09/06/20 06:00 Baso # (Auto) 0.02 K/uL (0-0.2) 09/06/20 06:00 Immature Gran # (Auto) 0.00 K/uL (0.00-0.02) 09/06/20 06:00 PT 11.4 Seconds (9.0-12.0) 07/06/20 13:15 INR 1.1 (0.9-1.1) 07/06/20 13:15 APTT 23.8 Seconds (21.0-31.0) 07/06/20 13:15 PTT Ratio 0.9 07/06/20 13:15 Sodium 138 mmol/L (136-145) 09/06/20 06:00 Potassium 4.0 mmol/L (3.5-5.1) 09/06/20 06:00 Chloride 108 mmol/L (98-107) H 09/06/20 06:00 Carbon Dioxide 27 mmol/L (21-32) 09/06/20 06:00 Anion Gap 3.0 (3-11) 09/06/20 06:00 BUN 33 mg/dl (7-18) H 09/06/20 06:00 Creatinine 1.81 mg/dl (0.6-1.4) H 09/06/20 06:00 Est Cr Clr Drug Dosing 35.9 ml/min 09/06/20 06:00 Est GFR ( Amer) 40.0 09/06/20 06:00 Est GFR (Non-Af Amer) 34.5 09/06/20 06:00 BUN/Creatinine Ratio 18.0 (10-20) 09/06/20 06:00 Glucose 73 mg/dl (70-99) 09/06/20 06:00 POC Glucose 84 mg/dl (70-99) 09/06/20 06:59 Estimat Average Glucose 171 mg/dl 07/06/20 13:15 Hemoglobin A1c 7.6 % (4.5-5.6) H 07/06/20 13:15 Calcium 8.7 mg/dl (8.5-10.1) 09/06/20 06:00 Albumin 3.7 gm/dl (3.4-5.0) 07/06/20 13:15 Urine Color Dark Yellow 07/06/20 13:15 Urine Appearance Clear (Clear) 07/06/20 13:15 Urine pH 5.0 (4.5-7.5) 07/06/20 13:15 Ur Specific [place] 1.024 (1.000-1.030) 07/06/20 13:15 Urine Protein Trace (Negative) H 07/06/20 13:15 Urine Glucose (UA) Negative (Negative) 07/06/20 13:15 Urine Ketones Negative (Negative) 07/06/20 13:15 Urine Blood Negative (Negative) 07/06/20 13:15 Urine Nitrite Negative (Negative) 07/06/20 13:15 Urine Bilirubin Negative (Negative) 07/06/20 13:15 Urine Urobilinogen Negative (Negative) 07/06/20 13:15 Ur Leukocyte Esterase Negative (Negative) 07/06/20 13:15 Urine WBC (Auto) 1-5 /hpf (0-5) 07/06/20 13:15 Urine RBC (Auto) 0-4 /hpf (0-4) 07/06/20 13:15 U Hyaline Cast (Auto) 1-5 /lpf (0-5) 07/06/20 13:15 U Epithel Cells (Auto) 10-20 /lpf (0-5) H 07/06/20 13:15 Urine Bacteria (Auto) Negative (Negative) 07/06/20 13:15 Blood Type A Positive 07/06/20 13:15 Antibody Screen NEGATIVE 07/06/20 13:15
[2020-09-06] MEDS: DOCUSATE SODIUM 100 MG CAP PO SCH ×2 (07:35→21:36)
[2020-09-06] MEDS: carvediloL 6.25 MG TAB PO SCH ×2 (07:36→21:37)
[2020-09-06] MEDS: MULTIVITAMIN TAB PO SCH (07:36)
[2020-09-06] MEDS: PANTOprazole 40 MG TAB PO SCH (07:36)
[2020-09-06] MEDS: FENOFIBRATE NANOCRYSTALLIZED 145 MG TABLET PO SCH (07:36)
[2020-09-06] MEDS: CYANOCOBALAMIN (VITAMIN B-12) 2,500 MCG TAB.SUBL SL SCH (07:37)
[2020-09-06] MEDS: TAMSULOSIN HCL 0.4 MG CAP PO SCH (07:37)
[2020-09-06] MEDS: CEROVITE ADV FORMULA TAB PO SCH (07:37)
[2020-09-06] MEDS: CHOLECALCIFEROL 1,000 UNITS 25 MCG TAB PO SCH (07:37)
[2020-09-06] MEDS: ASPIRIN 81 MG ECTAB PO SCH ×2 (07:38→21:37)
[2020-09-06] MEDS: GABAPENTIN 100 MG CAP PO SCH ×3 (07:38→21:38)
[2020-09-06] MEDS: DUTASTERIDE: ORDER AWAITING ACTION SCH ×3 (07:39→23:34)
[2020-09-06] MEDS: INSULIN ASPART 100 UNITS/ML 3 ML PEN SC SCH ×4 (07:59→21:40)
--- NOTE | 2020-09-06 11:46 | Hospitalist Progress Note ---
Date of Service September 06, 2020 Assessment & Plan (1) S/P total knee arthroplasty: Status post left TKA on 09/[address] Alcocer Doing well postoperatively Pain control, bowel regimen, and DVT prophylaxis with 81 mg p.o. twice daily, SCDs Plan for home likely tomorrow since he canceled his ride for Monday and cannot get one till Monday (2) Acute renal insufficiency: With increasing creatinine to 1.87 on postop day #1 from baseline of 1.57 on preoperative labs Creatinine down slightly to 1.81 today after IV fluids and encouraged p.o. fluid intake which he is not doing He did receive his lisinopril on the morning of 09/05-we will continue to hold this Expect creatinine to be improved back to baseline by tomorrow Discontinued Toradol and would not recommend any other NSAIDs Blood pressures were slightly low and he had some acute blood loss anemia which is likely contributing to some mild renal insufficiency Follow BMP in the morning Renally dose medications (3) Diabetes mellitus, type 2: Patient typically takes glipizide and Victoza for his diabetes at home; and gabapentin for neuropathy With significant hyperglycemia here on hospital day #1-pharmacy is managing Now much better controlled Continue Lantus and NovoLog and restart home medications upon discharge (4) CAD (coronary artery disease): Patient had a CABG He has had no unstable anginal symptoms and did have a preop stress test in January 2020 -Remains on carvedilol 6.25 MG p.o. twice daily -Continue atorvastatin and aspirin -Holding home lisinopril for renal insufficiency as above (5) BPH (benign prostatic hyperplasia): No acute issues Continue tamsulosin, dutasteride (6) GERD (gastroesophageal reflux disease): Continue Protonix (7) Acute blood loss anemia: Hemoglobin dropped to 8.9 from 12.6 preoperatively, secondary to blood loss from surgery. Hemoglobin stable today at 8.7 No transfusion needed Blood pressure borderline low-lisinopril being held as above Follow CBC in the morning (8) Anxiety: Continue home Xanax 1 mg p.o. twice daily as needed Continue trazodone at bedtime (9) Hyperlipidemia: Continue home fenofibrate (10) DVT prophylaxis: Aspirin 81 mg p.o. twice daily SCDs Disposition-continued stay recommended for renal insufficiency-home tomorrow if renal impairment improved Hospitalist service will continue to follow along Admission and Anticipated Discharge Date Admission Date: September 04, 2020 Anticipated date of discharge: 09/07/20 Subjective Patient reports feeling well, has some pain in the knee. Denies chest pain or shortness of breath. He is eating and drinking, making urine. He reports he canceled his ride home today even though I saw him at 1120 in the morning and he will have a ride till tomorrow. Creatinine remains elevated but slightly improved from yesterday. He reports he does not like to drink a lot of fluids. Review of Systems Review of Systems: All systems reviewed & are unremarkable except as noted in HPI & below Physical Exam Constitutional: WD/WN, vitals as above Eyes: + anicteric sclerae Neck: trachea midline, no thyromegaly Respiratory: normal respiratory effort, lungs clear to auscultation Cardiovascular: RRR, no murmur, no edema Chest (Breasts): Chest: normal inspection of chest Gastrointestinal (Abdomen): normal bowel sounds, soft, nontender, no hepatosplenomegaly Musculoskeletal: Extremities: + extremities abnormal to inspection (Left lower extremity with Nima wrap in place, not removed), no cyanosis and no clubbing Skin: no rashes, warm and dry Neurologic: moves all extremities and awake; no focal motor deficits Psychiatric: A+Ox3, euthymic affect Lymphatic: no lymphedema Results & Data Results & Data ([facility]) Vital Signs (Past 12 Hours) Vital Signs Temp Pulse Resp BP BP Pulse Ox 09/06/20 06:57 36.5 C 66 16 107/61 97 09/05/20 23:43 36.8 C 73 16 104/64 98 Laboratory Results 09/06/20 09/06/20 09/06/20 Range/Units 06:59 06:00 06:00 WBC 5.78 (4.8-10.8) K/uL RBC 2.68 L (4.7-6.1) M/uL Hgb 8.7 L (14.0-18.0) g/dL Hct 24.3 L (42-52) % MCV 90.7 (80-100) fL MCH 32.5 (25-34) pg MCHC 35.8 (32-36) g/dL RDW Std Deviation 43.5 (36.4-46.3) fL RDW Coeff of Jim 13.2 (11.5-14.5) % Plt Count 130 (130-400) K/uL MPV 9.6 (7.4-10.4) fL Immature Gran % (Auto) 0.0 % Neut % (Auto) 55.6 % Lymph % (Auto) 30.8 % Ada % (Auto) 9.3 % Eos % (Auto) 4.0 % Baso % (Auto) 0.3 % Neut # (Auto) 3.21 (1.4-6.5) K/uL Lymph # (Auto) 1.78 (1.2-3.4) K/uL Ada # (Auto) 0.54 (0.11-0.59) K/uL Eos # (Auto) 0.23 (0-0.5) K/uL Baso # (Auto) 0.02 (0-0.2) K/uL Immature Gran # (Auto) 0.00 (0.00-0.02) K/uL Sodium 138 (136-145) mmol/L Potassium 4.0 (3.5-5.1) mmol/L Chloride 108 H (98-107) mmol/L Carbon Dioxide 27 (21-32) mmol/L Anion Gap 3.0 (3-11) BUN 33 H (7-18) mg/dl Creatinine 1.81 H (0.6-1.4) mg/dl Est Cr Clr Drug Dosing 35.9 ml/min Est GFR ( Amer) 40.0 Est GFR (Non-Af Amer) 34.5 BUN/Creatinine Ratio 18.0 (10-20) Glucose 73 (70-99) mg/dl POC Glucose 84 (70-99) mg/dl Calcium 8.7 (8.5-10.1) mg/dl 09/05/20 09/05/20 09/05/20 Range/Units 20:36 17:27 12:02 WBC (4.8-10.8) K/uL RBC (4.7-6.1) M/uL Hgb (14.0-18.0) g/dL Hct (42-52) % MCV (80-100) fL MCH (25-34) pg MCHC (32-36) g/dL RDW Std Deviation (36.4-46.3) fL RDW Coeff of Jim (11.5-14.5) % Plt Count (130-400) K/uL MPV (7.4-10.4) fL Immature Gran % (Auto) % Neut % (Auto) % Lymph % (Auto) % Ada % (Auto) % Eos % (Auto) % Baso % (Auto) % Neut # (Auto) (1.4-6.5) K/uL Lymph # (Auto) (1.2-3.4) K/uL Ada # (Auto) (0.11-0.59) K/uL Eos # (Auto) (0-0.5) K/uL Baso # (Auto) (0-0.2) K/uL Immature Gran # (Auto) (0.00-0.02) K/uL Sodium (136-145) mmol/L Potassium (3.5-5.1) mmol/L Chloride (98-107) mmol/L Carbon Dioxide (21-32) mmol/L Anion Gap (3-11) BUN (7-18) mg/dl Creatinine (0.6-1.4) mg/dl Est Cr Clr Drug Dosing ml/min Est GFR ( Amer) Est GFR (Non-Af Amer) BUN/Creatinine Ratio (10-20) Glucose (70-99) mg/dl POC Glucose 142 H 141 H 130 H (70-99) mg/dl Calcium (8.5-10.1) mg/dl PG Care Time/CCT Total # of Minutes Spent Total Time Spent with Patient: Total time spent is greater than 50% in coordination of care (as documented) at patient's floor/unit and/or counseling patient: Coding Level of Care Code 60833 Subseq Hosp Care Lvl 2 Diagnoses S/P total knee arthroplasty Z96.659 Acute renal insufficiency N28.9 Diabetes mellitus, type 2 E11.9 CAD (coronary artery disease) I25.10 BPH (benign prostatic hyperplasia) N40.0 GERD (gastroesophageal reflux disease) K21.9 Acute blood loss anemia D62 Anxiety F41.9 Hyperlipidemia E78.5 DVT prophylaxis Z29.9
[2020-09-06] MEDS: oxyCODONE HCL IR 5 MG TAB (IMMEDIATE RELEASE) PO PRN ×2 (13:02→18:19)
[2020-09-06] MEDS: ATORVASTATIN 40 MG TAB PO SCH (21:37)
[2020-09-06] MEDS: SENNA 8.6 MG TAB PO SCH (21:38)
[2020-09-06] MEDS: traZODone HCL 100 MG TAB PO SCH (23:34)
[2020-09-06] MEDS: ALPRAZolam 0.5 MG TABLET PO PRN (23:34)
[2020-09-07] MEDS: oxyCODONE HCL IR 5 MG TAB (IMMEDIATE RELEASE) PO PRN ×3 (03:34→12:07)
[2020-09-07] MEDS: ACETAMINOPHEN 500 MG TAB PO SCH (05:27)
[2020-09-07 06:16] LABS: Basophils # (auto) 0.02 K/uL (0-0.2); Basophils % (auto) 0.4 %; Eosinophils # (auto) 0.24 K/uL (0-0.5); Eosinophils % (auto) 4.6 %; Hematocrit (blood only) 28.2 % (42-52); Hemoglobin 9.8 g/dL (14.0-18.0); Immature Granulocytes # (auto) 0.02 K/uL (0.00-0.02); Immature Granulocytes % (auto) 0.4 %; Lymphocytes # (auto) 1.35 K/uL (1.2-3.4); Lymphocytes % (auto) 25.7 %; Mean Corpuscular Hemoglobin 31.6 pg (25-34); Mean Corpuscular Hgb Conc 34.8 g/dL (32-36); Mean Platelet Volume 9.9 fL (7.4-10.4); Monocytes # (auto) 0.46 K/uL (0.11-0.59); Monocytes % (auto) 8.7 %; Neutrophils # (auto) 3.17 K/uL (1.4-6.5); Neutrophils % (auto) 60.2 %; Platelet Count 151 K/uL (130-400); RDW Coefficient of Variation 13.3 % (11.5-14.5); RDW Standard Deviation 43.8 fL (36.4-46.3); White Blood Count 5.26 K/uL (4.8-10.8)
[2020-09-07 06:45] VITALS: BP 115/69; PULSE 74; TEMP 98.2; O2SAT 96
[2020-09-07 07:06] LABS: BUN Creatinine Ratio 14.6 (10-20); Calcium 9.5 mg/dl (8.5-10.1); Creatinine Clr Calc Pharmacy 40.1 ml/min; Est GFR (African American) 45.8; Est GFR (Non-African American) 39.5; Potassium 4.4 mmol/L (3.5-5.1)
[2020-09-07] MEDS: DUTASTERIDE: ORDER AWAITING ACTION SCH (07:21)
[2020-09-07] MEDS: PANTOprazole 40 MG TAB PO SCH (07:22)
[2020-09-07] MEDS: DOCUSATE SODIUM 100 MG CAP PO SCH (07:22)
[2020-09-07] MEDS: TAMSULOSIN HCL 0.4 MG CAP PO SCH (07:22)
[2020-09-07] MEDS: GABAPENTIN 100 MG CAP PO SCH (07:22)
[2020-09-07] MEDS: carvediloL 6.25 MG TAB PO SCH (07:22)
[2020-09-07] MEDS: ASPIRIN 81 MG ECTAB PO SCH (07:22)
[2020-09-07] MEDS: CHOLECALCIFEROL 1,000 UNITS 25 MCG TAB PO SCH (07:23)
[2020-09-07] MEDS: MULTIVITAMIN TAB PO SCH (07:23)
[2020-09-07] MEDS: FENOFIBRATE NANOCRYSTALLIZED 145 MG TABLET PO SCH (07:23)
[2020-09-07] MEDS: CYANOCOBALAMIN (VITAMIN B-12) 2,500 MCG TAB.SUBL SL SCH (07:23)
[2020-09-07] MEDS: INSULIN ASPART 100 UNITS/ML 3 ML PEN SC SCH ×2 (07:36→12:36)
[2020-09-07] MEDS: CEROVITE ADV FORMULA TAB PO SCH (07:40)
[2020-09-07] MEDS ORDERED: INSULIN GLARGINE SOLOSTAR 100 UNITS/ML 3 ML PEN SC SCH (09:00)
--- NOTE | 2020-09-07 10:44 | Orthopedic Progress Note ---
Date of Service September 07, 2020 Assessment & Plan (1) Unilateral primary osteoarthritis, left knee: Stop day 3 status post left total knee arthroplasty. PT/OT protocols. Weightbearing as tolerated. Progressing well with PT DVT prophylaxis-aspirin p.o. twice daily, SCDs, KIKA goss. Pain management as written. Creatinine down to 1.6. I have spoken to Alee COREA. She will see patient today and most likely, he will be able to be dc'd to home. DC planning-patient planning on home health services upon discharge. Admission and Anticipated Discharge Date Admission Date: September 04, 2020 Subjective POD 3 Pt lying in bed watching TV. Alert/oriented. No no complaints. Comfortable. Pain controlled. Hoping to go home today. Physical Exam Physical Exam: Gennaro dressing with scant dry drainage. Calves soft,NT. NV intact. Toes mobile. Results & Data ([facility]) Vital Signs (Past 12 Hours) Vital Signs Temp Pulse Pulse Resp BP BP Pulse Ox 09/07/20 10:30 36.8 C 80 74 16 115/69 118/65 96 09/07/20 06:44 36.8 C 74 16 115/69 96 09/06/20 23:19 36.7 C 85 16 131/68 99 Laboratory Results Laboratory Results WBC 5.26 K/uL (4.8-10.8) 09/07/20 05:31 RBC 3.10 M/uL (4.7-6.1) L 09/07/20 05:31 Hgb 9.8 g/dL (14.0-18.0) L 09/07/20 05:31 Hct 28.2 % (42-52) L 09/07/20 05:31 MCV 91.0 fL (80-100) 09/07/20 05:31 MCH 31.6 pg (25-34) 09/07/20 05:31 MCHC 34.8 g/dL (32-36) 09/07/20 05:31 RDW Std Deviation 43.8 fL (36.4-46.3) 09/07/20 05:31 RDW Coeff of Jim 13.3 % (11.5-14.5) 09/07/20 05:31 Plt Count 151 K/uL (130-400) 09/07/20 05:31 MPV 9.9 fL (7.4-10.4) 09/07/20 05:31 Immature Gran % (Auto) 0.4 % 09/07/20 05:31 Neut % (Auto) 60.2 % 09/07/20 05:31 Lymph % (Auto) 25.7 % 09/07/20 05:31 Evans % (Auto) 8.7 % 09/07/20 05:31 Eos % (Auto) 4.6 % 09/07/20 05:31 Baso % (Auto) 0.4 % 09/07/20 05:31 Neut # (Auto) 3.17 K/uL (1.4-6.5) 09/07/20 05:31 Lymph # (Auto) 1.35 K/uL (1.2-3.4) 09/07/20 05:31 Evans # (Auto) 0.46 K/uL (0.11-0.59) 09/07/20 05:31 Eos # (Auto) 0.24 K/uL (0-0.5) 09/07/20 05:31 Baso # (Auto) 0.02 K/uL (0-0.2) 09/07/20 05:31 Immature Gran # (Auto) 0.02 K/uL (0.00-0.02) 09/07/20 05:31 PT 11.4 Seconds (9.0-12.0) 07/06/20 13:15 INR 1.1 (0.9-1.1) 07/06/20 13:15 APTT 23.8 Seconds (21.0-31.0) 07/06/20 13:15 PTT Ratio 0.9 07/06/20 13:15 Sodium 138 mmol/L (136-145) 09/07/20 05:31 Potassium 4.4 mmol/L (3.5-5.1) 09/07/20 05:31 Chloride 106 mmol/L (98-107) 09/07/20 05:31 Carbon Dioxide 29 mmol/L (21-32) 09/07/20 05:31 Anion Gap 3.0 (3-11) 09/07/20 05:31 BUN 24 mg/dl (7-18) H 09/07/20 05:31 Creatinine 1.62 mg/dl (0.6-1.4) H 09/07/20 05:31 Est Cr Clr Drug Dosing 40.1 ml/min 09/07/20 05:31 Est GFR ( Amer) 45.8 09/07/20 05:31 Est GFR (Non-Af Amer) 39.5 09/07/20 05:31 BUN/Creatinine Ratio 14.6 (10-20) 09/07/20 05:31 Glucose 179 mg/dl (70-99) H 09/07/20 05:31 POC Glucose 200 mg/dl (70-99) H 09/07/20 06:41 Estimat Average Glucose 171 mg/dl 07/06/20 13:15 Hemoglobin A1c 7.6 % (4.5-5.6) H 07/06/20 13:15 Calcium 9.5 mg/dl (8.5-10.1) 09/07/20 05:31 Albumin 3.7 gm/dl (3.4-5.0) 07/06/20 13:15 Urine Color Dark Yellow 07/06/20 13:15 Urine Appearance Clear (Clear) 07/06/20 13:15 Urine pH 5.0 (4.5-7.5) 07/06/20 13:15 Ur Specific [place] 1.024 (1.000-1.030) 07/06/20 13:15 Urine Protein Trace (Negative) H 07/06/20 13:15 Urine Glucose (UA) Negative (Negative) 07/06/20 13:15 Urine Ketones Negative (Negative) 07/06/20 13:15 Urine Blood Negative (Negative) 07/06/20 13:15 Urine Nitrite Negative (Negative) 07/06/20 13:15 Urine Bilirubin Negative (Negative) 07/06/20 13:15 Urine Urobilinogen Negative (Negative) 07/06/20 13:15 Ur Leukocyte Esterase Negative (Negative) 07/06/20 13:15 Urine WBC (Auto) 1-5 /hpf (0-5) 07/06/20 13:15 Urine RBC (Auto) 0-4 /hpf (0-4) 07/06/20 13:15 U Hyaline Cast (Auto) 1-5 /lpf (0-5) 07/06/20 13:15 U Epithel Cells (Auto) 10-20 /lpf (0-5) H 07/06/20 13:15 Urine Bacteria (Auto) Negative (Negative) 07/06/20 13:15 Blood Type A Positive 07/06/20 13:15 Antibody Screen NEGATIVE 07/06/20 13:15
--- NOTE | 2020-09-07 11:15 | Hospitalist Progress Note ---
Date of Service September 07, 2020 Assessment & Plan (1) S/P total knee arthroplasty: Status post left TKA on 09/[address] Alcocer Doing well postoperatively Pain control, bowel regimen, and DVT prophylaxis with 81 mg p.o. twice daily, SCDs (2) Acute renal insufficiency: With increasing creatinine to 1.87 on postop day #1 from baseline of 1.57 on preoperative labs Provided IVF and lisinopril held - creat nearly at baseline today at 1.62 Discontinued Toradol and would not recommend any other NSAIDs Blood pressures were slightly low and now normal and he had some acute blood loss anemia which is likely contributing to some mild renal insufficiency Recommend holding lisinopril until follow up with pcp in one week (3) Diabetes mellitus, type 2: Patient typically takes glipizide and Victoza for his diabetes at home; and gabapentin for neuropathy With significant hyperglycemia here on hospital day #1-pharmacy is managing Now much better controlled Continue Lantus and NovoLog and restart home medications upon discharge (4) CAD (coronary artery disease): Patient had a CABG He has had no unstable anginal symptoms and did have a preop stress test in January 2020 -Remains on carvedilol 6.25 MG p.o. twice daily -Continue atorvastatin and aspirin -Holding home lisinopril for renal insufficiency as above (5) BPH (benign prostatic hyperplasia): No acute issues Continue tamsulosin, dutasteride (6) GERD (gastroesophageal reflux disease): Continue Protonix (7) Acute blood loss anemia: Hemoglobin dropped to 8.9 from 12.6 preoperatively, secondary to blood loss from surgery. Hemoglobin stable today at 8.7 No transfusion needed Blood pressure borderline low but improving-lisinopril being held as above (8) Anxiety: Continue home Xanax 1 mg p.o. twice daily as needed Continue trazodone at bedtime (9) Hyperlipidemia: Continue home fenofibrate (10) DVT prophylaxis: Aspirin 81 mg p.o. twice daily SCDs Medicine will sign off at this time. Please call with any questions or concerns. Admission and Anticipated Discharge Date Admission Date: September 04, 2020 Subjective Feeling well, no complaints. Looking forward to going home today. ROS Constitutional: no chills, aches, sweats or fever Respiratory: no sob,cough, sputum, or wheezing Cardiac: no chest pain, palpitations, edema, orthopnea or lightheadedness GI: no abdominal pain, nausea, vomiting, diarrhea or constipation : no dysuria or hesitancy Extremities: no joint pain or weakness Skin: no rash All other systems reviewed and negative Physical Exam Physical Exam: General: no distress Eyes: normal inspection, PERLL Respiratory: chest non tender, clear to auscultation, normal breath sounds, no respiratory distress, no accessory muscle use Cardiac: regular rate and rhythm, no rub or gallop, no murmur, no edema, no jvd GI/: active bowel sounds, no abd pain or tenderness, soft, non distended Extremities: normal range of motion, normal strength, non tender Neuro/Psych: alert and oriented x 3, normal mood and affect Skin: normal color, dry Results & Data Results & Data ([facility]) Vital Signs (Past 12 Hours) Vital Signs Temp Pulse Pulse Resp BP BP Pulse Ox 09/07/20 10:30 36.8 C 80 74 16 115/69 118/65 96 09/07/20 06:44 36.8 C 74 16 115/69 96 09/06/20 23:19 36.7 C 85 16 131/68 99 PG Care Time/CCT Total # of Minutes Spent Total Time Spent with Patient: Total time spent is greater than 50% in coordination of care (as documented) at patient's floor/unit and/or counseling patient: Coding Level of Care Code 07457 Subseq Hosp Care Lvl 2 Diagnoses S/P total knee arthroplasty Z96.659 Acute renal insufficiency N28.9 Diabetes mellitus, type 2 E11.9 CAD (coronary artery disease) I25.10 BPH (benign prostatic hyperplasia) N40.0 GERD (gastroesophageal reflux disease) K21.9 Acute blood loss anemia D62 Anxiety F41.9 Hyperlipidemia E78.5 DVT prophylaxis Z29.9
--- NOTE | 2020-09-07 12:14 | Pharmacy Report ---
Pharmacy Glycemic Short Note 2 - Date of Service September 07, 2020 - Glycemic Short BSG Results (Last 24 hours): 09/06/20 09/06/20 09/07/20 17:05 20:47 05:31 Glucose 179 H POC Glucose 139 H 197 H 09/07/20 06:41 Glucose POC Glucose 200 H ASSESSMENT: 09/07: * Kentrell received 12 units of insulin yesterday, all bolus * Fasting BSG was elevated at 200 mg/dL this AM * Gave a 15 unit dose of Lantus this AM * Tightened CR today as well * Likely discharge today. 09/05 * Patient received total of 57 units of insulin yesterday, of which 30 were basal insulin to cover steroids * Fasting BSG much improved at 136 mg/dL - hold basal / may add scale for HS depending how BSGs trend * Continue same CF/CR for now / may need to loosen once steroids wear off 09/04: * is an 79 year old male POD #0 s/p left total knee arthroplasty * Received dexamethasone 8 mg PO x 1 + orthomix perioperatively * PMH includes type 2 DM, CAD w/ history of DE (2015), HTN, and hyperlipidemia * Fasting BSG of 222 mg/dL this morning and postoperative BSG of 181 mg/dL and 281 mg/dL before dinner * Will give one-time Lantus order of 30 units x 1 and add overnight checks for this evening PLAN FOR INPATIENT GLYCEMIC CONTROL: * Holding outpatient oral diabetes medications * Basal insulin - increased * Lantus 15 units SC x 1 * Bolus insulin - tightened CR * NovoLog per scale ACHS or Q6hrs while NPO * Goal Range: Low 110 mg/dL - High 140 mg/dL * Correction Factor: 30 mg/dL/unit * Nutritional / Prandial insulin per carb ratio of 1 unit per 10 grams CHO consumed PLAN FOR DISCHARGE: * A1c 7.6% - goal ~7% reasonable. Sulfonylureas such as glipizide should be used with caution in elderly population due to increased hypoglycemic effects. Would recommend continuation of home diabetic agent as long as patient is not reporting hypoglycemia.
--- NOTE | 2020-09-09 09:47 | Discharge Summary ---
Date of Service September 09, 2020 Admission HPI Per Admitting Provider This is a patient with chronic, worsening left knee pain with worsening deformity noted. He was treated conservatively for knee osteoarthritis but failed all conservative management. He is now being set up for surgical management. Principal Diagnosis left knee osteoarthritis Discharge Exam Constitutional well developed and well nourished; no acute distress ENMT external ear and nose normal, oropharynx normal Neck trachea midline, no thyromegaly Respiratory normal respiratory effort, lungs clear to auscultation Cardiovascular Rate/Rhythm: regular rate and regular rhythm Gastrointestinal (Abdomen) normal bowel sounds, soft, nontender, no hepatosplenomegaly Musculoskeletal Gait: + antalgic gait (left) Knee: + surgical incision (left knee: BERNA dressing in place and functioning); no skin erythema and no ecchymosis Skin no rashes, warm and dry Neurologic normal touch/pain/proprioception Psychiatric A+Ox3, euthymic affect Speech: normal rate/rhythm/volume of speech Lymphatic no cervical or axillary lymphadenopathy Discharge Data Allergies Allergy/AdvReac Type Severity Reaction Status Date / Time No Known Allergies Allergy Verified 09/04/20 09:57 Consultations 09/04/20 15:27 Consult Case Management - Discharge Planning Routine Consult Hospitalist Routine Procedures Performed Operation Date: 08/07/20 07:15 <No data on this case meets the specified criteria> Operation Date: 09/04/20 10:35 Actual Procedures p Left Total Knee Arthroplasty(Left) - Mark Alcocer DO Ordered Studies 08/07/20 05:00 US guide needle placement Routine 09/04/20 05:00 US - OR guided needle placemen Routine Hospital Course (1) Unilateral primary osteoarthritis, left knee: Patient was admitted and underwent the noted procedure. He was doing well on POD #1 and #2 with PT and pain control. His creatinine had elevated slightly. On POD #3, his creatinine was down and he continued to do well. He was discharged home with home health later that day. post op day 3 status post left total knee arthroplasty. PT/OT protocols. Weightbearing as tolerated. Progressing well with PT DVT prophylaxis-aspirin p.o. twice daily, SCDs, KIKA goss. Pain management as written. Creatinine down to 1.6. I have spoken to Alee COREA. She will see patient today and most likel y, he will be able to be dc'd to home. DC planning-patient planning on home health services upon discharge. Total Time Total Time Spent Total Time Spent (In Minutes): 90 Total Time Includes: Examination of the Patient, Discharge Planning, Medication Reconciliation and Communication With Other Providers Discharge Plan Discharge Items Patient Disposition: Home - Home Health Services Reason For Visit: Unilateral Primary Osteoarthritis, Left Knee Discharge Diagnosis: Left knee osteoarthritis Activity: Per Instructions section Weightbearing: Left weightbearing Weightbearing Comment: As tolerated with walker Non-emergency contact: Surgeon Call non-emergency contact if: your pain is not controlled, your pain is worsening, your temperature is above 101, your wound has increased redness and your wound has increased drainage Follow-up/Referrals: Christophe Aponte [Primary Care Provider] - 09/14/20 10:30 am Diet: Carb Consistent or DM2 Addtl Attending Provider Instructions: DO NOT TAKE YOUR LISINOPRIL AT HOME AT THIS TIME. PLEASE FOLLOW UP WITH YOUR PRIMARY CARE PROVIDER IN 1 WEEK. HE WILL ADJUST YOUR MEDICATIONS NEEDED. ACTIVITY RECOMMENDATIONS: SELF CARE INSTRUCTIONS AFTER TOTAL KNEE REPLACEMENT A. You may need to continue a physical therapy program after discharge from the hospital. There are several options available to you. Your doctor will assist you in selecting the best one for you. 1. An out-patient facility 2 to 3 times a week for therapy or home therapy. 2. Continue working on all exercises taught to you in the hospital. Your goals should be to increase bending of your knee to 90 degrees and beyond and to fully straighten your knee. B. You may progress at your own pace from walking with a walker or crutches to a cane; then to no assistive devices. C. Make walking a part of your daily routine. Be up as much as comfortable with rest periods throughout the day. Rest with leg elevation is very important. Use the ice wrap frequently for the first 3-4 weeks. D. There are no restrictions on activities. 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 E. Wear the long elastic stockings (KIKA hose) 20 hours a day for one month after surgery. They can be removed several times a day for laundering and for a bath. F. BERNA dressing: You have a BERNA dressing on your surgical wound. It will remain in place for 7 days from surgery. You will be provided with a booklet with the do's and don'ts with the dressing in place. After 7 days, the dressing may be removed. If there is drainage from the surgical incision, you may cover the wound with dry dressings SPECIAL CARE INSTRUCTIONS: VERY IMPORTANT TO READ AND REVIEW A. Take Aspirin (blood thinning medications) as directed by your doctor. If on Coumadin, have a pro-time (blood test) drawn according to your doctor's instructions. This will tell the doctor how well the Coumadin is thinning your blood. B. There are a few signs you need to watch for after you are home. Call [facility] if you notice any of the followin. Increased severe knee pain. Some pain is expected especially when you exercise. 2. Increased swelling in your leg or knee; pain or swelling of the calf muscle in either lower leg. 3. Any fluid drainage from the incision. 4. Shortness of breath or chest pain. C. Please call [facility] at if you have any concerns or questions about your operation or recovery. The doctor or his nurse will return your call promptly. D. You must take antibiotics before dental work, bladder, bowel or other surgery. Your doctor will provide you with a permanent care to carry describing this precaution. * CALL IF INCREASED PAIN, REDNESS, DRAINAGE OR FEVER GREATER THAT 101 F. * WEAR KIKA HOSE 20 HOURS PER DAY FOR 4 WEEKS. FOLLOW UP VISIT: If appointment is not already scheduled: Please call [facility] to make a follow-up appointment for 2 weeks after your surgery to have nirmal removed at . PLEASE FOLLOW UP WITH DR. APONTE FOR A BLOOD PRESSURE AND BLOOD SUGAR CHECK UP THIS WEEK OR THE BEGINNING OF NEXT WEEK. 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 You should hold your lisinopril until your follow up with your primary care provider within about a week to give your kidneys a chance to fully heal and also due to your low normal blood pressures. Please take your blood pressure every day and keep a log to take with you to your primary care provider. You should call your doctor to discuss resuming your lisinopril earlier if your blood pressure is consistently 170 or higher for the top number or 90 or higher for the bottom number. Do not take NSAIDs (non steroidal anti-inflammatories) such as ibuprofen and naproxne as these can be harmful to your kidneys Diabetes Mellitus: Your blood sugars were running a little bit high this admission. Please call your doctor if your blood sugars are running over 250 consistently. Pending Studies at Discharge: No Stand-Alone Forms: My [facility], Opioid Pain Management, Smoking Cessation Medications and DC Order Prescriptions: New aspirin 81 mg Tablet,Delayed Release (Dr/Ec) 81 mg PO BID 30 Days Qty: 60 RF: 0 acetaminophen 500 mg Tablet 1,000 mg PO Q8 14 Days Qty: 84 RF: 0 polyethylene glycol 3350 [Miralax] 17 gram powder in packet 17 g PO DAILY PRN (Reason: constipation) Qty: 5 RF: 0 oxycodone 5 mg Tablet 5 mg PO Q4H MDD 6 PRN (Reason: pain) Qty: 30 RF: 0 Narcan 4 mg/actuation spray,non-aerosol 1 sprays INTNAS ONCE Qty: 2 RF: 0 Continued atorvastatin 40 mg Tablet 40 mg PO PM RF: 0 carvedilol 6.25 mg Tablet 6.25 mg PO BID RF: 0 cyanocobalamin (vitamin B-12) [Vitamin B-12] 2,500 mcg Tablet, Sublingual 2,500 mcg SUBLINGUAL QAM RF: 0 alprazolam [Xanax] 1 mg Tablet 1 - 2 mg PO HS PRN (Reason: Anxiety) RF: 0 glipizide 10 mg Tablet 10 mg PO QAM RF: 0 omeprazole 40 mg Capsule,Delayed Release(Dr/Ec) 40 mg PO QAM RF: 0 tamsulosin 0.4 mg Capsule 0.4 mg PO QAM RF: 0 gabapentin 100 mg Capsule 100 mg PO QAM RF: 0 dutasteride 0.5 mg Capsule 0.5 mg PO QAM RF: 0 fenofibrate nanocrystallized 145 mg Tablet 145 mg PO QAM RF: 0 Centrum 18-400 mg-mcg Tablet 1 tab PO QAM RF: 0 cholecalciferol (vitamin D3) [Vitamin D3] 125 mcg (5,000 unit) Tablet 125 mcg PO QAM RF: 0 gabapentin 100 mg Capsule 200 mg PO HS RF: 0 gabapentin 100 mg Capsule 100 mg PO QPM RF: 0 Discontinued aspirin [Aspir-81] 81 mg Tablet,Delayed Release (Dr/Ec) 81 mg PO QAM RF: 0 lisinopril 5 mg Tablet 5 mg PO QAM RF: 0 naproxen sodium [Aleve] 220 mg Capsule 220 mg PO BID PRN (Reason: Pain) RF: 0 tramadol 50 mg Tablet 50 mg PO BID PRN (Reason: Severe Pain (Scale Score 7-10)) RF: 0 alprazolam 1 mg tablet RF: 0 Discharge Orders: Discharge Order (Routine); Ordered 09/07/20 Ordered By: Derik Duncan/Other Patient Handouts: Managing Type 2 Diabetes, Total Knee Replacement, After Knee Replacement: Back at Home, Knee Replace First Month, Knee Replace After Surgery Admission Data Admit Date/Time: 09/04/20 14:03 Attending Provider: Mark Alcocer Admit Provider: Mark Alcocer Primary Care Provider: Christophe Aponte Other Providers: Dave Robbins ; Yolanda Ha ; Bernard Haynes ; Francisco Chester ; Ashley Llanes ; Marvin Muro ; Eduardo Martinez ; Kiran Wong ; Denia Bond ; Zofia Bautista ; Yamile Caldwell ; Claudio Varner ; Lucille Oropeza ; Elaina Michelle ; Oren Tejeda ; Kelsi Mcgraw ; Nehemias Best ; Ollie Stephen ; Alee Winters ; Mechelle Gross ; Moses Espinosa ; Bernard Armijo. ; Georgi Jane ; Whitney Dalton ; Jamie Dalton ; Mane Hou ; Daryl Stratton ; Vincent Madison ; Kaden Mcduffie ; Derek Mcgill Other Interventions: Discharge Summary Assessment (RN) Last Done: 09/07/20 10:30
== END 2020-09-07 13:20 | disposition home health service (06) ==
LOC: 3E 09:01 → ASU 09:01
DX: K21.9 Gastro-esophageal reflux disease without esophagitis; Z79.82 Long term (current) use of aspirin; M21.162 Varus deformity, not elsewhere classified, left knee; D62 Acute posthemorrhagic anemia; Z95.5 Presence of coronary angioplasty implant and graft; F41.9 Anxiety disorder, unspecified; N28.9 Disorder of kidney and ureter, unspecified; M24.562 Contracture, left knee; I25.2 Old myocardial infarction; E11.9 Type 2 diabetes mellitus without complications; Z79.899 Other long term (current) drug therapy; E78.5 Hyperlipidemia, unspecified; N40.0 Benign prostatic hyperplasia without lower urinary tract symptoms; M17.12 Unilateral primary osteoarthritis, left knee; I25.10 Atherosclerotic heart disease of native coronary artery without angina pectoris

== ENCOUNTER 2020-10-09 07:29 | Inpatient (IN) ==
--- NOTE | 2020-10-07 08:30 | Anesthesiology Consultation ---
Date of Service October 07, 2020 Assessment & Plan (1) Encounter for pre-operative examination: Chart Review Chart Review: Acceptable Risk for Surgery (pending anesthesia evaluation and preop Covid testing ) and Patient NOT seen in Pre Admission Testing - Check BSG AM DOS. Will leave to anesthesia discretion if repeat PRP needed DOS due to kidney function. Per nursing assessment 10/06/20, pt resides in [place]. Travels to [facility] for medical appts but otherwise denies any other traveling or large group gatherings/activities. Wears mask in public. No known Covid positive contacts or Covid related symptoms. Preop Covid testing [place] 10[place]06[place] [facility]. Left TKA 09/04/20= Done under SAB with MAC and PNB. SAB done at L4-5 with 1 attempt. No anesthesia issues noted per anesthesia record. Seen by cardio 07/21/20 (prior to left TKA) = patient seen for preop cardiac clearance. "He does not have any cardiac symptoms and did have a benign cardiac examination today... It is difficult to gauge his functional status on account of the severe limitations to the ambulation on account of his markedly arthritic knees however he did have a dobutamine stress echo in January this year which was read as showing no ischemia. I think we should proceed with his left knee replacement excepting the cardiovascular risk involved and under perioperative beta-petrona." He has significant dyslipidemia with marked triglyceridemiathis was discussed with patient's PCP in the past and again deferred to PCP manage ment. Seen by PCP 07/09/2020 (prior to left TKA) = patient seen for preop exam for upcoming knee replacement. "Medically cleared pending preop cardio evaluation." History Surgery Operation Date: 10/09/20 07:00 Proposed Procedures p Left Knee Incision and Drainage, - Mark Alcocer DO s Poly Exchange - Mark Alcocer DO Height/Weight Height: 5 ft 8 in Weight: 83.915 kg Allergies Allergy/AdvReac Type Severity Reaction Status Date / Time No Known Allergies Allergy Verified 10/06/20 14:36 Medications Home Medications Medication Instructions Recorded Confirmed Last Taken Centrum 1 tab PO QAM 06/25/20 10/06/20 09/03/20 11:00 alprazolam [Xanax] 1 - 2 mg PO HS PRN 0810/06/20 09/03/20 23:00 atorvastatin 40 mg PO PM 06/25/20 10/06/20 09/03/20 23:00 carvedilol 6.25 mg PO BID 06/25/20 10/06/20 09/03/20 11:00 cholecalciferol (vitamin D3) 125 mcg PO QAM 06/25/20 10/06/20 09/03/20 11:00 [Vitamin D3] cyanocobalamin (vitamin B-12) 2,500 mcg SUBLINGUAL QAM 06/25/20 10/06/20 09/03/20 11:00 [Vitamin B-12] dutasteride 0.5 mg PO QAM 06/25/20 10/06/20 09/03/20 11:00 fenofibrate nanocrystallized 145 mg PO QAM 06/25/20 10/06/20 09/03/20 11:00 gabapentin 100 mg PO QAM 06/25/20 10/06/20 09/03/20 11:00 gabapentin 200 mg PO HS 06/25/20 10/06/20 09/03/20 23:00 glipizide 10 mg PO QAM 06/25/20 10/06/20 09/03/20 11:00 omeprazole 40 mg PO QAM 06/25/20 10/06/20 09/03/20 11:00 tamsulosin 0.4 mg PO QAM 06/25/20 10/06/20 09/03/20 11:00 polyethylene glycol 3350 [Miralax] 17 g PO DAILY PRN #5 ea 09/06/20 10/06/20 Unknown oxycodone 5 mg PO Q6H PRN MDD 6 10/06/20 10/06/20 Unknown Past Medical History Medical History Anxiety CAD (coronary artery disease) S/p heart stent 1994 S/p 3 vessel CABG around 2015 Chronic back pain Diabetes mellitus, type 2 NIDDM- glucose fluctuates Fall PATIENT FELL ON OPERATED KNEE GERD (gastroesophageal reflux disease) Well controlled and stable Hx of concussion ~2016- no residual issues Hyperlipidemia Hypertension Myocardial Infarction ~2015 Past Family History Family History Other No family history of adverse response to anesthesia Past Surgical History Surgical History History of cardiac cath 1994, VIRIGINIA STENT History of cataract surgery History of colonoscopy History of coronary artery bypass graft x3 vessels at [facility]. follows with [facility] Cardiology. 5 YEARS AGO History of esophagogastroduodenoscopy (EGD) History of heart artery stent x1 stent. ~1994 History of tonsillectomy S/P total knee arthroplasty august 2020 Social History Smoking Status: Never smoker Do You Dip or Chew Tobacco: No Hx Alcohol Use: Yes Alcohol type: beer alcohol intake frequency: a few times a month Hx Substance Use: No substance use type: does not use Testing Laboratory Results 10/06/20= WBC: 4.47 H/H: 10.9/32.0 (anemia noted post op from previous TKA- H&H improving) PLATELETS: 206 SODIUM: 141 POTASSIUM: 4.2 CHLORIDE: 110 CO2: 23.9 BUN: 47.1 (chronically elevated- elevated more than previously) CREATININE: 2.10 (chronically elevated- elevated more than previously) GLUCOSE: 199 GFR: 32 HGB A1C: 7.5 PT: 12.3 INR: 1.08 UA: Trace protein Electrocardiogram Date: 07/21/20 SR at 71bpm. Low voltage in precordial leads. Poor R wave progression. Nonspecific T wave abnormality. (Stress test done on 01/15/20 showed PRWP on resting EKG prior to stress test- stress test showed infarction but no ischemia; 07/21/20 EKG also done at cardio clearance appt- was cleared for surgery and tolerate left TKA without issues) Chest X-Ray Date: 07/06/20 Findings: + NAD and + cardiomegaly (mild) Stress Test Date: 01/15/20 Type: exercise (ECHO) Resting EF: 45 to 50% Resting EKG- NSR- no evidence of myocardial ischemia. Poor R wave progression. MPHR =90%. Resting echo demonstrates abnormal wall motionapical inferoseptal hypokinesis and mid anterior septal hypokinesis. Improved wall motion and mid anterior septal segment with dobutamine. Conclusion: Dobutamine stress echocardiogram demonstrates apical inferoseptal infarction in mid anterior septal viability. No clear-cut evidence for ischemia.
[~2020-10-09 07:29] MED LIST changes: -ACETAMINOPHEN 500 MG TAB PO SCH; -BUPIVACAINE 0.5 % 5 MG/1 ML PF 10ML VIAL ONE; -CeleBREX 200 MG CAP PO SCH; -FAMOTIDINE 20 MG TAB PO SCH; -GABAPENTIN 300 MG CAP PO SCH; +LR 15ML/HR IV SCH; -LR 500ML BOLUS, THEN 15ML/HR IV SCH; -METOCLOPRAMIDE HCL 10 MG TABLET PO SCH; +ROPIVACAINE 0.5% HCL/PF 150 MG, BUPIVACAINE 0.75% MPF 20 ML, EPINEPHrine 30MG/30ML (OR ... INFIL SCH; -SODIUM CHLORIDE 0.9% 1,000 ML IV SCH; -ceFAZolin 2000MG 2,000 MG/15 ML SYR IV SCH; -dexAMETHasone 4 MG TAB PO SCH
--- NOTE | 2020-10-09 08:23 | History & Physical Bridge Note ---
Date of Service October 09, 2020 History & Physical Bridge Note I have examined the patient, reviewed the History & Physical and in the interval since the performance of the History & Physical I have noted the following changes of clinical significance: Will require left knee irrigation and debridement with possible polyethylene exchange.
[2020-10-09] MEDS ORDERED: ceFAZolin 2000MG 2,000 MG/15 ML SYR IV ONE (08:24)
[2020-10-09] MEDS ORDERED: ceFAZolin 2,000 MG/15 ML IV PUSH IV ONE (08:28)
--- NOTE | 2020-10-09 08:37 | History & Physical Report ---
Date of Service October 09, 2020 Assessment & Plan (1) Unilateral primary osteoarthritis, left knee: Patient presents with persistent drainage s/p wound dehiscence of his left total knee. Treatment options discussed. Risks, benefits and alternatives to surgery including but not limited to infection, DVT, pain, stiffness, need for revision surgery, damage to blood vessels, damage to nerves, PE, , were discussed with the patient and they wish to proceed. Plan will be for left knee incision and drainage with possible poly exchange. All questions answered. (2) Wound dehiscence: History of Present Illness Chief Complaint: Left knee pain Primary Care Provider: Christophe Aponte Patient is an 80 year old male with PMHx significant for CAD, hx of PA, DM2, HTN, hyperlipidemia, GERD who presented to the office with left knee incision dehicsence and drainage. He underwent left TKA by Dr. Alcocer on 09/04/20. Since that time he has had multiple episodes of falling onto this knee. His wound did dehisce after one of the falls and was seen in the [place] ED where it was irrigated and sutured. Since that time he has had persistent drainage from the area that was sutured. He presents today for I&D poly exchange. Patient denies headaches, sweats, fevers, chills, double vision, blurred vision, cough, sore throat, dysphagia, chest pain, sob, wheezing, n/v/d/c, numbness, tingling, fatigue, urinary symptoms, mood disorders. ROS positive for left knee pain. Allergies Allergy/AdvReac Type Severity Reaction Status Date / Time No Known Allergies Allergy Verified 10/09/20 07:56 Home Medications Medication Instructions Recorded Confirmed Type Centrum 1 tab PO QAM 06/25/20 10/09/20 History alprazolam [Xanax] 1 - 2 mg PO HS PRN 06/25/20 10/09/20 History atorvastatin 40 mg PO PM 06/25/20 10/09/20 History carvedilol 6.25 mg PO BID 06/25/20 10/09/20 History cholecalciferol (vitamin D3) 125 mcg PO QAM 06/25/20 10/09/20 History [Vitamin D3] cyanocobalamin (vitamin B-12) 2,500 mcg SUBLINGUAL QAM 06/25/20 10/09/20 History [Vitamin B-12] dutasteride 0.5 mg PO QAM 06/25/20 10/09/20 History fenofibrate nanocrystallized 145 mg PO QAM 06/25/20 10/09/20 History gabapentin 100 mg PO QAM 06/25/20 10/09/20 History gabapentin 200 mg PO HS 06/25/20 10/09/20 History glipizide 10 mg PO QAM 06/25/20 10/09/20 History omeprazole 40 mg PO QAM 06/25/20 10/09/20 History tamsulosin 0.4 mg PO QAM 06/25/20 10/09/20 History polyethylene glycol 3350 [Miralax] 17 g PO DAILY PRN #5 ea 09/06/20 10/09/20 Rx oxycodone 5 mg PO Q6H PRN MDD 6 10/06/20 10/09/20 History Past Med/Surg History Medical History Anxiety CAD (coronary artery disease) S/p heart stent 1994 S/p 3 vessel CABG around 2015 Chronic back pain Diabetes mellitus, type 2 NIDDM- glucose fluctuates Fall PATIENT FELL ON OPERATED KNEE GERD (gastroesophageal reflux disease) Well controlled and stable Hx of concussion ~2016- no residual issues Hyperlipidemia Hypertension Myocardial Infarction ~2015 Surgical History History of cardiac cath 1994, VIRIGINIA STENT History of cataract surgery History of colonoscopy History of coronary artery bypass graft x3 vessels at [facility]. follows with [facility] Cardiology. 5 YEARS AGO History of esophagogastroduodenoscopy (EGD) History of heart artery stent x1 stent. ~1994 History of tonsillectomy S/P total knee arthroplasty august 2020 Family History Other No family history of adverse response to anesthesia Social History Smoking Status: Never smoker Second Hand Exposure: No; Do You Dip or Chew Tobacco: No; Hx Alcohol Use: Yes Alcohol type: beer Hx Substance Use: No Preferred Language: Greenlandic Communication Ability: Effective Systems Qa Analyst Required: No Beliefs That Will Affect Care: None marital status: Current Living Situation: Alone Feels Safe at Home: Yes Safety Concerns: Feels Safe At This Time Assistive Devices: Cane, Denture - Upper, Glasses and Walker Physical Exam Constitutional: well developed and well nourished; no acute distress Respiratory: normal respiratory effort Cardiovascular: Rate/Rhythm: regular rate and regular rhythm Musculoskeletal: Left knee incision sutures in place distal aspect of incision, mild to moderate drainage. Decreased ROM. Stable to valgus and varus stress. No calf tenderness. Distally n/v status and sensation intact. Skin: no rashes, warm and dry Results & Data ([facility]) Diagnostic Findings Left knee radiographs demonstrate no hardware complication or fracture.
--- NOTE | 2020-10-09 08:38 | History & Physical Report ---
Date of Service October 09, 2020 Assessment & Plan (1) Wound dehiscence: Schedule a left knee I & D and poly exchange for 10.09.2020. All potential risks, benefits, complications, alternatives, and rehab have been discussed with the patient and he wishes to proceed. Will plan to restart ASA 81 mg BID x 30 days post op for DVT prophylaxis. (2) History of knee replacement procedure of left knee: History of Present Illness Chief Complaint: left knee wound dehiscence Primary Care Provider: Christophe Aponte This is a patient who underwent a left TKA approximately [address] Alcocer. He sustained a fall last week onto the anterior aspect of the left knee. He went to the [facility]'s ER where the wound was washed out and closed. He continued to have drainage so he is now being set up for a left knee I & D and poly exchange. Allergies Allergy/AdvReac Type Severity Reaction Status Date / Time No Known Allergies Allergy Verified 10/09/20 07:56 Home Medications Medication Instructions Recorded Confirmed Type Centrum 1 tab PO QAM 06/25/20 10/09/20 History alprazolam [Xanax] 1 - 2 mg PO HS PRN 06/25/20 10/09/20 History atorvastatin 40 mg PO PM 06/25/20 10/09/20 History carvedilol 6.25 mg PO BID 06/25/20 10/09/20 History cholecalciferol (vitamin D3) 125 mcg PO QAM 06/25/20 10/09/20 History [Vitamin D3] cyanocobalamin (vitamin B-12) 2,500 mcg SUBLINGUAL QAM 06/25/20 10/09/20 History [Vitamin B-12] dutasteride 0.5 mg PO QAM 06/25/20 10/09/20 History fenofibrate nanocrystallized 145 mg PO QAM 06/25/20 10/09/20 History gabapentin 100 mg PO QAM 06/25/20 10/09/20 History gabapentin 200 mg PO HS 06/25/20 10/09/20 History glipizide 10 mg PO QAM 06/25/20 10/09/20 History omeprazole 40 mg PO QAM 06/25/20 10/09/20 History tamsulosin 0.4 mg PO QAM 06/25/20 10/09/20 History polyethylene glycol 3350 [Miralax] 17 g PO DAILY PRN #5 ea 09/06/20 10/09/20 Rx oxycodone 5 mg PO Q6H PRN MDD 6 10/06/20 10/09/20 History Past Med/Surg History Medical History Anxiety CAD (coronary artery disease) S/p heart stent 1994 S/p 3 vessel CABG around 2015 Chronic back pain Diabetes mellitus, type 2 NIDDM- glucose fluctuates Fall PATIENT FELL ON OPERATED KNEE GERD (gastroesophageal reflux disease) Well controlled and stable Hx of concussion ~2016- no residual issues Hyperlipidemia Hypertension Myocardial Infarction ~2015 Surgical History History of cardiac cath 1994, VIRIGINIA STENT History of cataract surgery History of colonoscopy History of coronary artery bypass graft x3 vessels at [facility]. follows with [facility] Cardiology. 5 YEARS AGO History of esophagogastroduodenoscopy (EGD) History of heart artery stent x1 stent. ~1994 History of tonsillectomy S/P total knee arthroplasty august 2020 Family History Other No family history of adverse response to anesthesia Social History Smoking Status: Never smoker Second Hand Exposure: No; Do You Dip or Chew Tobacco: No; Hx Alcohol Use: Yes Alcohol type: beer Hx Substance Use: No Preferred Language: Rw[place]an Communication Ability: Effective Cad Draftsman Required: No Beliefs That Will Affect Care: None marital status: Current Living Situation: Alone Feels Safe at Home: Yes Safety Concerns: Feels Safe At This Time Assistive Devices: Cane, Denture - Upper, Glasses and Walker Physical Exam Constitutional: well developed and well nourished; no acute distress ENMT: external ear and nose normal, oropharynx normal Neck: trachea midline, no thyromegaly Respiratory: normal respiratory effort, lungs clear to auscultation Cardiovascular: Rate/Rhythm: regular rate and regular rhythm Gastrointestinal (Abdomen): normal bowel sounds, soft, nontender, no hepatosplenomegaly Musculoskeletal: Gait: + antalgic gait (left) Knee: + surgical incision (distal left knee incision with sutures in place, mild serous drainage) and + limited ROM of knee (left); no deformity, no skin erythema and no ecchymosis Skin: no rashes, warm and dry Neurologic: normal touch/pain/proprioception Psychiatric: A+Ox3, euthymic affect Speech: normal rate/rhythm/volume of speech Lymphatic: no cervical or axillary lymphadenopathy Results & Data ([facility]) Vital Signs (Past 12 Hours) Vital Signs Temp Pulse Resp BP Pulse Ox 10/09/20 08:01 37 C 83 20 152/70 H 98
[2020-10-09] MEDS ORDERED: fentaNYL citrate 100 MCG/2 ML VIAL IV PRN (09:41)
[2020-10-09] MEDS ORDERED: ATROPINE SULFATE 0.1 MG/ML 10ML SYR IV PRN (09:41)
[2020-10-09] MEDS ORDERED: ONDANSETRON INJ 2 MG/ML 2 ML VIAL IV PRN ×2 (09:41→14:45)
[2020-10-09] MEDS ORDERED: INSULIN HUMAN REGULAR PER UNIT 5 UNITS in SYRINGE 0 ML IV STA (09:41)
[2020-10-09] MEDS ORDERED: ePHEDrine sulfate 50 MG/ML AMP IV PRN (09:41)
[2020-10-09] MEDS ORDERED: HYDROmorphone INJ 1 MG/ML SYRINGE IV PRN (09:41)
[2020-10-09] MEDS ORDERED: NovoLIN-R INSULIN PER UNIT CHARGE ONE (09:45)
[2020-10-09] MEDS ORDERED: MIDAZOLAM HCL 1 MG/ML 2ML VIAL ONE (10:13)
[2020-10-09] MEDS ORDERED: BUPIVACAINE 0.25% 30 ML VIAL ONE (10:29)
[2020-10-09] MEDS ORDERED: PROPOFOL IV EMULSION 10 MG/ML 20 ML VIAL IV ONE (10:41)
[2020-10-09] MEDS ORDERED: ONDANSETRON INJ 2 MG/ML 2 ML VIAL ONE (10:41)
[2020-10-09] MEDS ORDERED: fentaNYL citrate 100 MCG/2 ML VIAL ONE (10:41)
[2020-10-09] MEDS ORDERED: LIDOCAINE HCL 2% 2 ML VIAL/AMP(20MG/ML) INFIL ONE (10:41)
[2020-10-09] MEDS ORDERED: BACITRACIN INJ 50,000 UNIT VIAL ONE (10:49)
--- NOTE | 2020-10-09 10:59 | XRay Report ---
XR knee LT 3V CLINICAL HISTORY: Fall s/p TKA COMPARISON: Left knee radiographs September 04, 2020. FINDINGS: Alignment of the total left knee arthroplasty is anatomic. There is no periprosthetic frac ture. Hardware is intact. Left knee soft tissue swelling is present with pre and infrapatellar swelli ng. Vascular surgical clips medial to the left knee are incidentally noted. No joint effusion is iden tified. IMPRESSION: 1. Status post total left knee arthroplasty. Hardware intact. No periprosthetic fracture. No joint ef fusion identified. 2. Pre and infrapatellar soft tissue swelling. ACT 112: Negative or not required by law. Electronically signed by: Kota Decker M.D. 10/09/2020 10:58 AM
[2020-10-09] MEDS ORDERED: HYDROmorphone INJ 2 MG/ML SYR/VIAL ONE (11:47)
--- NOTE | 2020-10-09 13:32 | Post Operative Brief Note ---
Immediate Post Op Note v1 Date of Surgery October 09, 2020 Pre & Post Diagnosis Operation Date: 10/09/20 09:25 Pre-Op Diagnosis: Left knee traumatic medial retinacular tear, anterior wound dehiscence, presents artificial knee replacement left knee Post-Op Diagnosis: Left knee traumatic medial retinacular tear, anterior wound dehiscence, presents artificial knee replacement left knee I identified the patient and participated in the time-out.: Yes Procedure Operation Date: 10/09/20 09:25 Actual Procedures p Left Knee, irrigation and debridement total knee arthroplasty, Patterson & Nephew 10 mm posterior stabilized polyethylene exchange, left knee medial retinacular repair(Left) - Mark Alcocer DO Surgeon Mark Alcocer DO [employer] Juan Manuel Sapp PA-C Estimated Blood Loss 17 Findings Consistent with Post-Op Diagnosis Specimens Aerobic anaerobic Gram stain deep knee, polyethylene sent for specimen Drains Hemovac Drain Anesthesia Type General Regional Complications none Disposition Accompanied Patient To Recovery: No Disposition: Recovery Room
[2020-10-09] MEDS ORDERED: INSULIN ASPART PER UNIT ONE (13:43)
--- NOTE | 2020-10-09 14:12 | XRay Report ---
XR knee LT 1 or 2V routine HISTORY: 80 years-old Male Surgical Post Op left knee total joint arthroplasty COMPARISON: Left knee radiographs 10/09/2020 TECHNIQUE: 2 views of the left knee FINDINGS: Left knee total joint arthroplasty and patella resurfacing. Satisfactory alignment without acute frac ture. Medial and anterior skin nirmal are noted along with surgical drainage catheter. Arterial calc ifications. Expected postoperative soft tissue swelling and deep tissue air. IMPRESSION: Left knee total joint arthroplasty and patella resurfacing with expected postoperative ch anges. ACT 112: Negative or not required by law. The above report was generated using voice recognition software. It may contain grammatical, syntax o r spelling errors. Electronically signed by: Asim Dias M.D. 10/09/2020 2:10 PM
--- NOTE | 2020-10-09 14:30 | Anesthesiology Progress Note ---
Date of Service October 09, 2020 Anesthesia Post Procedure Vital Signs Vital Signs: Temp Pulse Pulse Resp BP BP Pulse Ox 10/09/20 14:15 36.4 C L 76 12 113/65 99 10/09/20 14:05 80 15 138/74 99 10/09/20 13:55 84 13 144/70 H 100 10/09/20 13:45 94 H 16 121/66 100 10/09/20 13:37 36.6 C 89 13 142/70 H 97 10/09/20 08:01 37 C 83 20 152/70 H 98 Pain Intensity Right Knee: Pain Intensity: 0 Transfer of Care Handoff Completed per policy Notes Mental Status: alert / awake / arousable and participated in evaluation Patient Amnestic to Procedure: Yes Nausea / Vomiting: adequately controlled Pain: adequately controlled Airway Patency, RR, SpO2: stable & adequate BP & HR: stable & adequate Hydration State: stable & adequate Anesthetic Complications: no major complications apparent and Pt Satisfied with anesthetic care
--- NOTE | 2020-10-09 14:36 | Operative Report (OR) ---
DATE OF OPERATION: 10/09/2020 PREOPERATIVE DIAGNOSES: 1. Left knee traumatic medial retinacular tear. 2. Anterior knee wound dehiscence. 3. Presence of artificial knee replacement, left knee. POSTOPERATIVE DIAGNOSES: 1. Left knee traumatic medial retinacular tear. 2. Anterior knee wound dehiscence. 3. Presence of artificial knee replacement, left knee. PROCEDURES PERFORMED: 1. Left knee irrigation and debridement, total knee arthroplasty. 2. Polyethylene exchange Patterson and Nephew 10 mm posterior stabilized. 3. Left knee repair of traumatic medial retinacular tear. SURGEON: Mark Alcocer DO. PHYSICAL THERAPIST CLINIC DIRECTOR: Juan Manuel Sapp PA-C who was present for patient positioning, sterile prep and drape, management of retractors and instruments. He was present through the critical portions of the case including wound closure, application of sterile dressing and transport of the patient to recovery. ANESTHESIA: General, regional. SPECIMENS: Aerobic, anaerobic, Gram stain of deep knee and polyethylene for specimen. DRAINS: Hemovac x2. COMPLICATIONS: None. BLOOD LOSS: 17 mL. PERTINENT HISTORY: This is an 80-year-old gentleman who had previously undergone a successful left total knee arthroplasty without complication. However, the patient then advanced from his walker and his cane in a fairly rapid pace and approximately 2-1/2 weeks ago, the patient sustained a trip and fall where he caught his toe on a step, then he had a subsequent fall, which then resulted in acute open dehiscence of his incision. He was seen in the Emergency Department. He had this irrigated and closed with suture. He continued to have weakness in the knee, drainage and several other falls on the knee despite the use of a walker. He was seen in the clinic, had continued drainage and was then scheduled for surgery as indicated. All potential risks, benefits, complications, alternatives, rehab potential for incomplete relief of symptoms, need for further surgery, DVT, PE, , persistent pain, swelling, scarring, weakness, neurovascular injury, wound complications, hardware failure, nonunion, malunion, bone fracture were discussed with the patient. The patient decided to proceed with the procedure as indicated. DESCRIPTION OF PROCEDURE: After regional anesthetics were injected by the anesthesiologist, the patient was then taken to the operative suite, placed supine on the operating table. After review of consent and identification of proper operative site, the patient was sedated, had a spinal anesthetic, adductor canal block. He was then placed supine on the operating room table. Tourniquet was applied high on the left thigh over cast padding. Left lower extremity was then sterilely prepped and draped in usual fashion, elevated and exsanguinated with Esmarch bandage, tourniquet inflated to 350 mmHg. Next, a surgical timeout was performed. A 10 blade scalpel was then used to make a midline incision at the site of prior incision. Sutures were removed superficially and the sutures in the dermis were removed. There was noted to be an obvious retinacular traumatic tear medially extending from just above the patella to the patellar tendon insertion and the tibia. The retinacular tear was then completed proximally and then all sutures were removed from the retinacular repair. The patella was then everted and the polyethylene was then removed. All surfaces were then carefully curetted, and after the curettage was completed, pituitary rongeur was then used to remove any immature clot and a synovectomy was then performed with electrocautery. Once this was completed, Versajet was then used to perform a fluid debridement of all surfaces including the retained implants and components. There is no evidence of infection. Aerobic, anaerobic, Gram stain had been harvested prior to the use of Versajet for specimen and the polyethylene was also sent for specimen. After Versajet cleansing was performed, then approximately 6 liters of sterile saline with bacitracin using pulsatile lavage was then used to lavage all the tissue. A scrub brush with Betadine was used to cleanse all soft tissues and components followed by implantation of a new polyethylene after new top gloves and top sheet were changed. A new 10 mm posterior stabilized polyethylene was inserted. Sterile Betadine soak was then performed for 3 minutes. Once this time had elapsed, then pulsatile lavage 3 liters of bacitracin was then used to lavage the remainder of the knee joint, superficial and deep. Once this was completed, Orthomix was then injected for postop pain and bleeding control in all deep surfaces around the capsule, care was taken to avoid injection around the common peroneal nerve. Next, the retinaculum was then repaired using interrupted #1 Vicryl sutures, taking care to assure watertight closure. This was then stressed through range of motion, anterior drawer, posterior drawer, varus and valgus stress testing at 0 degrees and 30 degrees noting no evidence of instability and no gapping of the retinacular repair. Next, the dermis was then repaired using buried interrupted 2-0 Vicryl. The skin was then closed using skin nirmal. Next, a sterile compressive dressing was applied consisting of Acticoat, a BERNA drain was then applied and 2 deep 10-[place] Hemovac drains were also placed exiting anterolaterally. Finally, a sterile compressive dressing and Nima wrap was then applied from the toes to the groin. The tourniquet was released. The patient was awakened and taken to recovery in stable condition. I attest to the content of the Intraoperative Record and any orders documented therein. Any exception s are noted below.
[2020-10-09] MEDS ORDERED: NALOXONE HCL 0.4 MG/1 ML VIAL/CARP IV PRN (14:45)
[2020-10-09] MEDS ORDERED: POLYETHYLENE (MIRALAX) 17 GM PACK PO PRN (14:45)
[2020-10-09] MEDS ORDERED: bisacodyL 10 MG SUPP PR PRN (14:45)
[2020-10-09] MEDS ORDERED: MAGNESIUM HYDROXIDE SUSP 30 ML UDC PO PRN (14:45)
[2020-10-09] MEDS ORDERED: METOCLOPRAMIDE HCL INJ 5 MG/ML 2 ML VIAL IV PRN (14:45)
[2020-10-09] MEDS ORDERED: SODIUM CHLORIDE 0.9% 1000ML 1,000 ML IV SCH (14:45)
[2020-10-09] MEDS ORDERED: PHARMACY GLYCEMIC MGMT CONSULT PRN (14:54)
[2020-10-09] MEDS ORDERED: NovoLIN-N (NPH) PER UNIT CHARGE SQ ONE (15:30)
--- NOTE | 2020-10-09 15:52 | Hospitalist Consultation ---
Date of Consultation October 09, 2020 Assessment & Plan (1) Wound dehiscence: * s/p left knee I & D and poly exchange for 10.09.[address] Alcocer. EBL 17cc. Pre-op h/h 9.8/28.2 * PT/OT/pain management/DVT prophylaxis per primary service -- plans for ASA 81mg BID x 30days for DVT proph * Wound c/s pending -- follow * Ancef for abx per primary * NSS @ 100cc/hr * CBC in AM (2) History of knee replacement procedure of left knee: * September 04, 2020 * See above (3) CAD (coronary artery disease): * Hx CABGx3, [facility] s/p stenting in 1994. Follows with Cardiology in [place] * He has had no unstable anginal symptoms and did have a preop stress test in January 2020 * Continue atorvastatin and aspirin, lisinopril, carvedilol (4) Benign essential HTN: * BP stable 109/63 * Continue carvedilol * Lisinopril discontinued last admission for renal insufficiency * Continue to monitor (5) Hyperlipidemia: * continue statin, fenofibrate (6) Diabetes mellitus, type 2: * Pharmacy consulted -- typically on glipizide and Victoza outpatient -- held while inpatient * Continue to monitor (7) GERD (gastroesophageal reflux disease): * Continue protonix while inpatient -- 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 twice daily as needed (9) DVT prophylaxis: * ASA 81mg BID per primary service Renal Insufficiency * Cr 1.62 on pre-op labs from September 07-- lisinopril previously discontinued * Avoid nephrotoxic agents * Renally dose medications as appropriate * BMP in AM Thank you for allowing hospitalist service to participate in the care of Mr. Guan. Hospitalist service will follow along. Supervising Physician Co-Signing Physician Notes Patient seen and examined with Yolanda TINSLEY. I agree with her exam findings, review of systems, assessment and plan. I personally reviewed the lab work prior to admission. patient resting comfortably, minimal pain in left knee breathing well, no nausea vitals stable - s/p left TKA with wound dehiscence: s/p washout with Dr. Alcocer, will need rehab, pain control and DVT prophylaxis per ortho - CAD: h/o CABG, no chest pain at this time, continue Coreg, on aspirin - HTN: continue Coreg, YAIR was stopped last admission, continue to hold - CKD stage III: Cr was 1.6 prior to admission, check BMP in the morning, monitor electrolytes History of Present Illness Reason for Consultation: medical management Requesting Physician: Dr Alcocer Attending Physician: Mark Alcocer, DO History of Present Illness 80 year old male with PMHx significant for CAD,(hx of [place]), DM2 (not on insulin), HTN, hyperlipidemia, GERD and anxiety presented to the office with LEFT knee incision dehiscence and drainage. Previously underwent left TKA by Dr. Alcocer on 09/04/20 and has had multiple falls onto that knee and wound dehisce during one fall and was evaluated in [place] ER where it was irrigated and sutures. Continued to have persistent drainage from the area that was sutured and he presented for I&D poly exchange with Dr. Alcocer today. Patient states he is feeling well post-operatively. Some numbness to LLE but li alexandro from nerve block. Still with sensation in b/l feet. Pain currently controlled. Has not eaten since arriving to the floor and would like some cranberry juice. History of CABG 5 years ago and follows with [place] [facility] "when I can". No fever, chills, chest pain, shortness of breath, abdominal pain, nausea or vomiting at this time. Jokingly at the end of our conversation he stated that he was hopeful for discharge tonight, but is aware that is not happening. Allergies Allergy/AdvReac Type Severity Reaction Status Date / Time No Known Allergies Allergy Verified 10/09/20 07:56 Home Medications Medication Instructions Recorded Confirmed Type Centrum 1 tab PO QAM 06/25/20 10/09/20 History alprazolam [Xanax] 1 - 2 mg PO HS PRN 06/25/20 10/09/20 History atorvastatin 40 mg PO PM 06/25/20 10/09/20 History carvedilol 6.25 mg PO BID 06/25/20 10/09/20 History cholecalciferol (vitamin D3) 125 mcg PO QAM 06/25/20 10/09/20 History [Vitamin D3] cyanocobalamin (vitamin B-12) 2,500 mcg SUBLINGUAL QAM 06/25/20 10/09/20 History [Vitamin B-12] dutasteride 0.5 mg PO QAM 06/25/20 10/09/20 History fenofibrate nanocrystallized 145 mg PO QAM 06/25/20 10/09/20 History gabapentin 100 mg PO QAM 06/25/20 10/09/20 History gabapentin 200 mg PO HS 06/25/20 10/09/20 History glipizide 10 mg PO QAM 06/25/20 10/09/20 History omeprazole 40 mg PO QAM 06/25/20 10/09/20 History tamsulosin 0.4 mg PO QAM 06/25/20 10/09/20 History polyethylene glycol 3350 [Miralax] 17 g PO DAILY PRN #5 ea 09/06/20 10/09/20 Rx oxycodone 5 mg PO Q6H PRN MDD 6 10/06/20 10/09/20 History Patient History Medical History Anxiety CAD (coronary artery disease) S/p heart stent 1994 S/p 3 vessel CABG around 2015 Chronic back pain Diabetes mellitus, type 2 NIDDM- glucose fluctuates Fall PATIENT FELL ON OPERATED KNEE GERD (gastroesophageal reflux disease) Well controlled and stable Hx of concussion ~2016- no residual issues Hyperlipidemia Hypertension Myocardial Infarction ~2015 Surgical History History of cardiac cath 1994, VIRIGINIA STENT History of cataract surgery History of colonoscopy History of coronary artery bypass graft x3 vessels at [facility]. follows with [facility] Cardiology. 5 YEARS AGO History of esophagogastroduodenoscopy (EGD) History of heart artery stent x1 stent. ~1994 History of tonsillectomy S/P total knee arthroplasty august 2020 Family History Other No family history of adverse response to anesthesia Social History Smoking Status: Never smoker Second Hand Exposure: No; Do You Dip or Chew Tobacco: No; Hx Alcohol Use: Yes Alcohol type: beer Hx Substance Use: No Preferred Language: Japanese Communication Ability: Effective Lock Master Required: No Beliefs That Will Affect Care: None marital status: Current Living Situation: Alone Feels Safe at Home: Yes Safety Concerns: Feels Safe At This Time Assistive Devices: Walker Review of Systems Review of Systems: All systems reviewed & are unremarkable except as noted in HPI & below Physical Exam Constitutional: WD/WN, vitals as above + obese and comfortable; no acute distress Eyes: + anicteric sclerae and PERRL wearing pink glasses ENMT: Ears: no hearing impairment Nose: no external nose abnormality Neck: normal visual inspection and trachea midline Respiratory: normal respiratory effort, lungs clear to auscultation 100% on 1L NC Cardiovascular: RRR, no murmur, no edema Chest (Breasts): Additional Comments: sternotomy scar from CABG Gastrointestinal (Abdomen): normal bowel sounds, soft, nontender, no hepatosplenomegaly Inspection/Auscultation: + abdomen distended Musculoskeletal: dressing to L knee c/d/i with ice pack present hemovac with bloody drainage NVI some numbness to light touch medial thigh/knee able to dorsiflex 4/5 LLE, 5/5 RLE 5/5 bilaterally with plantarflexion calves non-tender to palpation pulses equal bilaterally Neurologic: PERRL, EOMI, accommodation nl, no face palsy, no dysarthria Psychiatric: Orientation: alert and oriented x 3 Lymphatic: no cervical or axillary lymphadenopathy Results & Data Results & Data ([facility]) Vital Signs (Past 12 Hours) Vital Signs Temp Pulse Pulse Resp BP BP Pulse Ox 10/09/20 15:13 36.4 C L 73 16 136/73 100 10/09/20 14:40 36.4 C L 79 18 131/70 100 10/09/20 14:30 75 12 140/79 98 10/09/20 14:15 36.4 C L 76 12 113/65 99 10/09/20 14:05 80 15 138/74 99 10/09/20 13:55 84 13 144/70 H 100 10/09/20 13:45 94 H 16 121/66 100 10/09/20 13:37 36.6 C 89 13 142/70 H 97 10/09/20 08:01 37 C 83 20 152/70 H 98 PG Care Time/CCT Total # of Minutes Spent Total Time Spent with Patient: Total time spent is greater than 50% in coordination of care (as documented) at patient's floor/unit and/or counseling patient: Coding Level of Care Code 44421 Inpt Consult Level 3 Diagnoses Wound dehiscence T81.30XA History of knee replacement procedure of left knee Z96.652 CAD (coronary artery disease) I25.10 Benign essential HTN I10 Hyperlipidemia E78.5 Diabetes mellitus, type 2 E11.9 GERD (gastroesophageal reflux disease) K21.9 Anxiety F41.9 DVT prophylaxis Z29.9
[2020-10-09] MEDS: ACETAMINOPHEN 500 MG TAB PO SCH ×2 (16:29→21:52)
[2020-10-09] MEDS: INSULIN ASPART 100 UNITS/ML 3 ML PEN SC SCH ×3 (17:50→23:31)
[2020-10-09] MEDS: ceFAZolin 2000MG 2,000 MG/15 ML SYR IV SCH (18:51)
[2020-10-09] MEDS: carvediloL 6.25 MG TAB PO SCH (20:50)
[2020-10-09] MEDS: SENNA 8.6 MG TAB PO SCH (20:50)
[2020-10-09] MEDS: GABAPENTIN 100 MG CAP PO SCH (20:50)
[2020-10-09] MEDS: ATORVASTATIN 40 MG TAB PO SCH (20:50)
[2020-10-09] MEDS: DOCUSATE SODIUM 100 MG CAP PO SCH (20:50)
[2020-10-09] MEDS: ASPIRIN 81 MG ECTAB PO SCH (20:50)
--- NOTE | 2020-10-09 21:42 | Pharmacy Report ---
Glycemic Control Consultation - Date of Service October 09, 2020 - Scope Scope: Glycemic Pharmacist consulted for glycemic control and to write orders per [facility] inpatient glycemic control protocol. - Objective Weight: 83.869 kg Accuchecks BSG (last 24hrs): 10/09/20 10/09/20 10/09/20 07:53 10:26 13:40 POC Glucose 243 H 187 H 219 H 10/09/20 10/09/20 10/09/20 14:09 15:44 17:12 POC Glucose 214 H 175 H 180 H 10/09/20 20:36 POC Glucose 159 H - Recent Pertinent Medications Outpatient Anti-diabetic Regimen: * Glipizide * A1c outdated but 7.6% on 07/06/20. Repeat ordered for tomorrow Risk Factors for Insulin Resistance: * Recent Surgery: POD 0 s/p L knee I&D * Diet: T2DM - Assessment & Plan Assessment & Plan: ASSESSMENT: * 80 yo M POD 0 s/p L knee I&D * BSG's elevated post-op >180 mg/dL. Aim for all BSG's less than 150 mg/dL in the immediate post-op period * No basal currently on board - will utilize one-time dose of NPH as the time to full effect is much faster than Lantus. However, will not be aggressive with dose to prevent peak from causing hypoglycemia overnight * Will start weight-based moderate stress Novolog ACHS PLAN FOR INPATIENT GLYCEMIC CONTROL: * Starting IV insulin infusion per [] (moderate/severe) stress protocol * Goal Range [] - [] mg/dl * In the critical care setting, continuous IV insulin infusion has been shown to be the best method for achieving glycemic targets. * Holding outpatient oral diabetes medications * Basal insulin * Lantus [] units SQ BID * Bolus insulin * NovoLog per scale ACHS or Q6hrs while NPO * Goal Range: Low [] mg/dL - High [] mg/dL * Correction Factor: [] mg/dL/unit * Nutritional / Prandial insulin per carb ratio of 1 unit per [] grams CHO consumed OR PLAN FOR INPATIENT GLYCEMIC CONTROL: * Continuing / Increasing / decreasing Lantus/NPH to [] units SQ BID * Continuing / changing correction factor to [] mg/dl/unit * Continuing / changing carb ratio to 1 unit per [] grams CHO consumed * Continuing / changing goal range to Low [] mg/dL - High [] mg/dL * Please note that the plan above was derived based on current level of insulin resistance and hospital stress. These recommendations are appropriate for inpatient admission only. Plan of care upon discharge will need to be reassessed to avoid potential outpatient hypo/hyperglycemia. Thank you.
[2020-10-09] MEDS: HYDROmorphone INJ 0.5 MG/0.5 ML SYR IV PRN (21:47)
[2020-10-09] MEDS: oxyCODONE HCL IR 5 MG TAB (IMMEDIATE RELEASE) PO PRN (23:24)
[2020-10-09] MEDS: ALPRAZolam 0.5 MG TABLET PO PRN (23:25)
[2020-10-09] MEDS: DUTASTERIDE 0.5 MG SCH (23:25)
[2020-10-10] MEDS: ceFAZolin 2000MG 2,000 MG/15 ML SYR IV SCH ×2 (03:58→11:38)
[2020-10-10] MEDS: INSULIN ASPART 100 UNITS/ML 3 ML PEN SC SCH ×5 (04:10→20:43)
[2020-10-10] MEDS: ACETAMINOPHEN 500 MG TAB PO SCH ×3 (05:53→20:46)
[2020-10-10 06:21] LABS: Hematocrit (blood only) 24.1 % (42-52); Mean Corpuscular Hemoglobin 31.1 pg (25-34); Mean Corpuscular Hgb Conc 33.2 g/dL (32-36); Mean Corpuscular Volume 93.8 fL (80-100); Mean Platelet Volume 9.9 fL (7.4-10.4); Platelet Count 145 K/uL (130-400); RDW Coefficient of Variation 13.7 % (11.5-14.5); RDW Standard Deviation 46.5 fL (36.4-46.3); Red Blood Count 2.57 M/uL (4.7-6.1); White Blood Count 5.29 K/uL (4.8-10.8)
[2020-10-10 06:36] LABS: Estimated Average Glucose 171 mg/dl; Hemoglobin A1C 7.6 % (4.5-5.6)
[2020-10-10 06:57] LABS: BUN Creatinine Ratio 17.6 (10-20); Calcium 8.3 mg/dl (8.5-10.1); Creatinine Clr Calc Pharmacy 32.6 ml/min; Est GFR (African American) 37.7; Est GFR (Non-African American) 32.5
[2020-10-10] MEDS: DUTASTERIDE 0.5 MG SCH ×3 (07:45→23:15)
--- NOTE | 2020-10-10 08:23 | Orthopedic Progress Note ---
Date of Service October 10, 2020 Assessment & Plan (1) Wound dehiscence: POD #1, Left Knee I&D, Retinacular repair, and poly exchange. PT/ OT- WBAT with walker and hinged knee brace 0-30 degrees. DVT proph- ASA D/C planning- Inpatient Rehab. Intra op- Gram stain with Rare WBC's and rare gram positive Culture- Pending On Ancef q8 hrs Post op anemia- Hgb 8.0- Will discuss need for transfusion with medicine. As per medicine- BUN/ Cr- 33/1.89- Hx of renal failure. Intra op findings as above. Admission and Anticipated Discharge Date Admission Date: October 09, 2020 Subjective POD #1, Feeling well. Pain controlled well. Denies SOB, CP, N/V, dizziness. Hgb 8.0 this AM. States he did some bedside PT with no problems. Physical Exam Physical Exam: Left knee dressings c/d/i. Drain in place. Toes mobile, ankle mobile. No calf tenderness. A&Ox3. Results & Data ([facility]) Vital Signs (Past 12 Hours) Vital Signs Temp Pulse Pulse Resp BP Pulse Ox 10/10/20 07:24 37.1 C 73 18 109/58 L 96 10/10/20 04:05 37.1 C 72 16 97/56 L 96 10/09/20 23:34 37.0 C 73 16 101/59 L 96 10/09/20 20:45 74 120/74
[2020-10-10] MEDS: ASPIRIN 81 MG ECTAB PO SCH ×2 (08:43→20:40)
[2020-10-10] MEDS: PANTOprazole 40 MG TAB PO SCH (08:43)
[2020-10-10] MEDS: CHOLECALCIFEROL 1,000 UNITS 25 MCG TAB PO SCH (08:43)
[2020-10-10] MEDS: carvediloL 6.25 MG TAB PO SCH ×2 (08:43→20:40)
[2020-10-10] MEDS: TAMSULOSIN HCL 0.4 MG CAP PO SCH (08:44)
[2020-10-10] MEDS: CEROVITE ADV FORMULA TAB PO SCH (08:44)
[2020-10-10] MEDS: CYANOCOBALAMIN (VITAMIN B-12) 2,500 MCG TAB.SUBL SL SCH (08:44)
[2020-10-10] MEDS: FENOFIBRATE NANOCRYSTALLIZED 145 MG TABLET PO SCH (08:44)
[2020-10-10] MEDS: DOCUSATE SODIUM 100 MG CAP PO SCH ×2 (08:45→20:46)
[2020-10-10] MEDS: GABAPENTIN 100 MG CAP PO SCH ×2 (08:45→20:38)
[2020-10-10] MEDS ORDERED: MULTIVITAMIN TAB PO SCH (09:00)
[2020-10-10] MEDS ORDERED: SODIUM CHLORIDE 0.9% 1000ML 1,000 ML IV SCH (11:15)
--- NOTE | 2020-10-10 11:37 | Hospitalist Progress Note ---
Date of Service October 10, 2020 Assessment & Plan (1) Wound dehiscence: * s/p left knee I & D and poly exchange for 10.09.[address] Alcocer. EBL 17cc. Pre-op h/h 9.8/28.2 Hb is 8.0 this morning, could be from fluids check again at 3pm, no need for transfusion unless it is < 7.0 * PT/OT/pain management/DVT prophylaxis per primary service -- plans for ASA 81mg BID x 30days for DVT proph * Wound c/s pending -- follow * Ancef for abx per primary * NSS @ 100cc/hr for one more bag today * CBC again in AM (2) History of knee replacement procedure of left knee: * September 04, 2020 * See above (3) CAD (coronary artery disease): * Hx CABGx3, [place] s/p stenting in 1994. Follows with Cardiology in [place] * He has had no unstable anginal symptoms and did have a preop stress test in January 2020 * Continue atorvastatin and aspirin, carvedilol * no chest pain today (4) Benign essential HTN: * BP stable 109/58 * Continue carvedilol * Lisinopril discontinued last admission for renal insufficiency * Continue to monitor (5) Hyperlipidemia: * continue statin, fenofibrate (6) Diabetes mellitus, type 2: * Pharmacy consulted -- typically on glipizide and Victoza outpatient -- held while inpatient * monitor for hypoglycemia (7) GERD (gastroesophageal reflux disease): * Continue protonix while inpatient -- on omeprazole [employer] (8) Anxiety: * Continue home Xanax 1 mg p.o. twice daily as needed (9) DVT prophylaxis: * ASA 81mg BID per primary service Renal Insufficiency * Cr 1.62 on pre-op labs from September 07-- lisinopril previously discontinued * Avoid nephrotoxic agents * Renally dose medications as appropriate * BMP in AM Thank you for allowing hospitalist service to participate in the care of Mr. Guan. Hospitalist service will follow along. (10) Acute blood loss anemia: Hb down to 8.0 from 9.8, EBL was only 17cc likely dilutional, repeat at 3pm today no need for transfusion at this time, monitor (11) CKD (chronic kidney disease), stage III: Cr was 1.6 prior to admission, 1.8 this morning give one more bag of NSS and then repeat BMP in the AM he is making urine, electrolytes stable Admission and Anticipated Discharge Date Admission Date: October 09, 2020 Subjective patient laying in bed, no distress minimal pain in left knee eating well, breathing well hb is down to 8.0, will repeat this afternoon, no need for transfusion at this time Cr is up a little at 1.8 from 1.6, give one more bag of fluid as BP low normal no other complaints from patient Review of Systems Review of Systems: All systems reviewed & are unremarkable except as noted in Subjective Musculoskeletal: + joint pain (left knee) Physical Exam Constitutional: WD/WN, vitals as above Neck: trachea midline, no thyromegaly Respiratory: normal respiratory effort, lungs clear to auscultation Cardiovascular: RRR, no murmur, no edema Gastrointestinal (Abdomen): normal bowel sounds, soft, nontender, no hepatosplenomegaly Musculoskeletal: Head/Neck/Chest: normocephalic, head atraumatic and neck supple Extremities: strength 5/5 throughout; + extremities abnormal to inspection (left knee wrapped, swollen), no muscle atrophy, no cyanosis, no clubbing and no petechiae Skin: no rashes, warm and dry Neurologic: patellar DTR's 2+ bilat, sensation intact and PERRL, EOMI, accommodation nl, no face palsy, no dysarthria Psychiatric: A+Ox3, euthymic affect Results & Data Results & Data ([facility]) Vital Signs (Past 12 Hours) Vital Signs Temp Pulse Pulse Resp BP Pulse Ox 10/10/20 07:24 37.1 C 73 18 109/58 L 96 10/10/20 04:05 37.1 C 72 16 97/56 L 96 10/09/20 23:34 37.0 C 73 16 101/59 L 96 Laboratory Results Laboratory Results - last 24 hr 10/09/20 10/09/20 10/09/20 13:40 14:09 15:44 WBC RBC Hgb Hct MCV MCH MCHC RDW Std Deviation RDW Coeff of Jim Plt Count MPV Sodium Potassium Chloride Carbon Dioxide Anion Gap BUN Creatinine Est Cr Clr Drug Dosing Est GFR ( Amer) Est GFR (Non-Af Amer) BUN/Creatinine Ratio Glucose POC Glucose 219 H 214 H 175 H Estimat Average Glucose Hemoglobin A1c Calcium 10/09/20 10/09/20 10/09/20 17:12 20:36 23:28 WBC RBC Hgb Hct MCV MCH MCHC RDW Std Deviation RDW Coeff of Jim Plt Count MPV Sodium Potassium Chloride Carbon Dioxide Anion Gap BUN Creatinine Est Cr Clr Drug Dosing Est GFR ( Amer) Est GFR (Non-Af Amer) BUN/Creatinine Ratio Glucose POC Glucose 180 H 159 H 246 H Estimat Average Glucose Hemoglobin A1c Calcium 10/10/20 10/10/20 10/10/20 04:03 05:50 05:50 WBC 5.29 RBC 2.57 L Hgb 8.0 L Hct 24.1 L MCV 93.8 MCH 31.1 MCHC 33.2 RDW Std Deviation 46.5 H RDW Coeff of Jim 13.7 Plt Count 145 MPV 9.9 Sodium 140 Potassium 4.0 Chloride 111 H Carbon Dioxide 26 Anion Gap 3.0 BUN 33 H Creatinine 1.89 H Est Cr Clr Drug Dosing 32.6 Est GFR ( Amer) 37.7 Est GFR (Non-Af Amer) 32.5 BUN/Creatinine Ratio 17.6 Glucose 211 H POC Glucose 196 H Estimat Average Glucose Hemoglobin A1c Calcium 8.3 L 10/10/20 10/10/20 05:50 08:26 WBC RBC Hgb Hct MCV MCH MCHC RDW Std Deviation RDW Coeff of Jim Plt Count MPV Sodium Potassium Chloride Carbon Dioxide Anion Gap BUN Creatinine Est Cr Clr Drug Dosing Est GFR ( Amer) Est GFR (Non-Af Amer) BUN/Creatinine Ratio Glucose POC Glucose 196 H Estimat Average Glucose 171 Hemoglobin A1c 7.6 H Calcium Medications Administered Current Inpatient Medications Acetaminophen (Acetaminophen 500 Mg Tab) 1,000 mg PO Q8 [facility] Stop: 11/08/20 14:44 Last Admin: 10/10/20 05:53 Dose: 1,000 mg Documented by: Alprazolam (Alprazolam 0.5 Mg Tablet) 1 - 2 mg PO HS PRN PRN Reason: Anxiety Stop: 11/08/20 14:44 Last Admin: 10/09/20 23:25 Dose: 2 mg Documented by: Aspirin (Aspirin 81 Mg Ectab) 81 mg PO BID [facility] Stop: 11/08/20 20:59 Last Admin: 10/10/20 08:43 Dose: 81 mg Documented by: Atorvastatin Calcium (Atorvastatin 40 Mg Tab) 40 mg PO PM [facility] Stop: 11/08/20 20:59 Last Admin: 10/09/20 20:50 Dose: 40 mg Documented by: Bisacodyl (Bisacodyl 10 Mg Supp) 10 mg CO DAILY PRN PRN Reason: Constipation Stop: 11/08/20 14:44 Carvedilol (Carvedilol 6.25 Mg Tab) 6.25 mg PO BID [facility] Stop: 11/08/20 20:59 Last Admin: 10/10/20 08:43 Dose: 6.25 mg Documented by: Cyanocobalamin (Cyanocobalamin (Vitamin B-12) 2,500 Mcg Tab.Subl) 2,500 mcg SL [facility] Stop: 11/09/20 08:59 Last Admin: 10/10/20 08:44 Dose: 2,500 mcg Documented by: Docusate Sodium (Docusate Sodium 100 Mg Cap) 100 mg PO BID [facility] Stop: 11/08/20 20:59 Last Admin: 10/10/20 08:45 Dose: Not Given Documented by: Fenofibrate (Fenofibrate Nanocrystallized 145 Mg Tablet) 145 mg PO QAM [facility] Stop: 11/09/20 08:59 Last Admin: 10/10/20 08:44 Dose: 145 mg Documented by: Gabapentin (Gabapentin 100 Mg Cap) 100 mg PO QAM [facility] Stop: 11/09/20 08:59 Last Admin: 10/10/20 08:45 Dose: 100 mg Documented by: Gabapentin (Gabapentin 100 Mg Cap) 200 mg PO HS [facility] Stop: 11/08/20 20:59 Last Admin: 10/09/20 20:50 Dose: 200 mg Documented by: Hydromorphone HCl (Hydromorphone Inj 0.5 Mg/0.5 Ml Syr) 0.5 mg IV Q4H PRN PRN Reason: Pain or Pre PT Stop: 10/23/20 14:44 Last Admin: 10/09/20 21:47 Dose: 0.5 mg Documented by: Cefazolin Sodium (Ancef 2000mg) 2,000 mg in 15 mls @ 3.75 mls/min IV Q8H [facility]; Protocol Stop: 11/20/20 18:59 Last Admin: 10/10/20 03:58 Dose: 3.75 mls/min Documented by: Sodium Chloride (Nss 1000ml) 1,000 mls @ 100 mls/hr IV .Q10H [facility] Stop: 10/10/20 21:14 Insulin Aspart (Insulin Aspart 100 Units/Ml 3 Ml Pen) 0 units SC ACHS [facility]; Protocol Stop: 11/08/20 16:29 Last Admin: 10/10/20 08:45 Dose: 6 units Documented by: Insulin Glargine (Insulin Glargine Solostar 100 Units/Ml 3 Ml Pen) 15 units SC DAILY [facility] Stop: 11/09/20 09:29 Magnesium Hydroxide (Magnesium Hydroxide Susp 30 Ml Udc) 30 ml PO Q6H PRN PRN Reason: Constipation Stop: 11/08/20 14:44 Metoclopramide HCl (Metoclopramide Hcl Inj 5 Mg/Ml 2 Ml Vial) 10 mg IV Q6H PRN PRN Reason: Nausea And Vomiting Stop: 11/08/20 14:44 Miscellaneous (Dutasteride 0.5 Mg Capsule - Order Awaiting Action) 1 ea N/A QS [facility] Stop: 11/09/20 00:00 Last Admin: 10/10/20 07:45 Dose: Not Given Documented by: Miscellaneous Information (Pharmacy Glycemic Mgmt Consult) 1 ea N/A UD PRN PRN Reason: Consult Stop: 11/08/20 14:53 Multivitamins/Minerals (Cerovite Adv Formula Tab) 1 tab [facility] Stop: 11/09/20 08:59 Last Admin: 10/10/20 08:44 Dose: 1 tab Documented by: Naloxone HCl (Naloxone Hcl 0.4 Mg/1 Ml Vial/Carp) 0.1 mg IV Q5M PRN PRN Reason: Oversedation/Resp Depression Stop: 11/08/20 14:44 Ondansetron HCl (Ondansetron Inj 2 Mg/Ml 2 Ml Vial) 4 mg IV Q6H PRN PRN Reason: Nausea And Vomiting Stop: 11/08/20 14:44 Oxycodone HCl (Oxycodone Hcl Ir 5 Mg Tab (Immediate Release)) 5 - 10 mg PO Q4H PRN PRN Reason: Pain or Pre PT Stop: 10/23/20 14:44 Last Admin: 10/09/20 23:24 Dose: 10 mg Documented by: Pantoprazole Sodium (Pantoprazole 40 Mg Tab) 40 mg PO QAM [facility] Stop: 11/09/20 08:59 Last Admin: 10/10/20 08:43 Dose: 40 mg Documented by: Polyethylene Glycol (Polyethylene (Miralax) 17 Gm Pack) 17 gm PO DAILY PRN PRN Reason: constipation Stop: 11/08/20 14:44 Sennosides (Senna 8.6 Mg Tab) 17.2 mg PO [facility] Stop: 11/08/20 20:59 Last Admin: 10/09/20 20:50 Dose: 17.2 mg Documented by: Tamsulosin HCl (Tamsulosin Hcl 0.4 Mg Cap) 0.4 mg PO QAM [facility] Stop: 11/09/20 08:59 Last Admin: 10/10/20 08:44 Dose: 0.4 mg Documented by: Vitamin D (Cholecalciferol 1,000 Units 25 Mcg Tab) 5,000 units [facility] Stop: 11/09/20 08:59 Last Admin: 10/10/20 08:43 Dose: 5,000 units Documented by: PG Care Time/CCT Total # of Minutes Spent Total Time Spent with Patient: Total time spent is greater than 50% in coordination of care (as documented) at patient's floor/unit and/or counseling patient: Coding Level of Care Code 43152 Subseq Hosp Care Lvl 3 Diagnoses Wound dehiscence T81.30XA History of knee replacement procedure of left knee Z96.652 CAD (coronary artery disease) I25.10 Benign essential HTN I10 Hyperlipidemia E78.5 Diabetes mellitus, type 2 E11.9 GERD (gastroesophageal reflux disease) K21.9 Anxiety F41.9 DVT prophylaxis Z29.9 Acute blood loss anemia D62 CKD (chronic kidney disease), stage III N18.30
[2020-10-10] MEDS: INSULIN GLARGINE SOLOSTAR 100 UNITS/ML 3 ML PEN SC SCH (11:41)
[2020-10-10 12:25] LABS: Basophils # (auto) 0.01 K/uL (0-0.2); Basophils % (auto) 0.2 %; Eosinophils # (auto) 0.12 K/uL (0-0.5); Eosinophils % (auto) 2.5 %; Hematocrit (blood only) 24.2 % (42-52); Lymphocytes # (auto) 1.41 K/uL (1.2-3.4); Lymphocytes % (auto) 29.8 %; Mean Corpuscular Hgb Conc 33.1 g/dL (32-36); Mean Corpuscular Volume 93.8 fL (80-100); Mean Platelet Volume 9.7 fL (7.4-10.4); Monocytes # (auto) 0.46 K/uL (0.11-0.59); Monocytes % (auto) 9.7 %; Neutrophils # (auto) 2.73 K/uL (1.4-6.5); Neutrophils % (auto) 57.8 %; Platelet Count 147 K/uL (130-400); RDW Coefficient of Variation 13.7 % (11.5-14.5); RDW Standard Deviation 46.6 fL (36.4-46.3); Red Blood Count 2.58 M/uL (4.7-6.1); White Blood Count 4.73 K/uL (4.8-10.8)
--- NOTE | 2020-10-10 14:53 | Pharmacy Report ---
Pharmacy Glycemic Short Note 2 - Date of Service October 10, 2020 - Glycemic Short BSG Results (Last 24 hours): 10/09/20 10/09/20 10/09/20 15:44 17:12 20:36 Glucose POC Glucose 175 H 180 H 159 H 10/09/20 10/10/20 10/10/20 23:28 04:03 05:50 Glucose 211 H POC Glucose 246 H 196 H 10/10/20 10/10/20 08:26 11:51 Glucose POC Glucose 196 H 247 H OUTPATIENT ANTIDIABETIC REGIMEN: * glipizide ASSESSMENT: 10/10: * Patient received ~40 units of insulin yesterday, of which 15 were basal insulin * POD 1 today, fasting BSG elevated at 211 mg/dL - will schedule Lantus 15 units for this AM * Lunch time BSG trending up, however AM scheduled Lantus given late at ~1200. Possible reasoning for higher lunch time BSG * Plan to tighten CF/CR slightly with lunch time, and add Lantus HS for if BSGs remain elevated PLAN FOR INPATIENT GLYCEMIC CONTROL: * Hold outpatient oral diabetes medications * Basal insulin * Lantus 15 units daily * Lantus 0-10 units HS if BSGs >200 * Bolus insulin * NovoLog per scale ACHS or Q6hrs while NPO * Goal Range: Low 110 mg/dL - High 140 mg/dL * Correction Factor: 25 mg/dL/unit * Nutritional / Prandial insulin per carb ratio of 1 unit per 8 grams CHO consumed PLAN FOR DISCHARGE: * tbd
[2020-10-10 15:33] LABS: Hematocrit (blood only) 25.4 % (42-52); Hemoglobin 8.4 g/dL (14.0-18.0)
[2020-10-10] MEDS: oxyCODONE HCL IR 5 MG TAB (IMMEDIATE RELEASE) PO PRN (17:40)
[2020-10-10] MEDS: SENNA 8.6 MG TAB PO SCH (20:39)
[2020-10-10] MEDS: ATORVASTATIN 40 MG TAB PO SCH (20:40)
[2020-10-10] MEDS ORDERED: INSULIN GLARGINE SOLOSTAR 100 UNITS/ML 3 ML PEN SC SCH (21:00)
[2020-10-10] MEDS: HYDROmorphone INJ 0.5 MG/0.5 ML SYR IV PRN (21:15)
[2020-10-10] MEDS: ALPRAZolam 0.5 MG TABLET PO PRN (22:52)
[2020-10-10] MEDS: ceFAZolin 1000MG 1,000 MG/7.5 ML SYR IV SCH (22:53)
[2020-10-11] MEDS: ACETAMINOPHEN 500 MG TAB PO SCH ×3 (05:32→21:33)
[2020-10-11 06:50] LABS: Creatinine Clr Calc Pharmacy 38.6 ml/min; Est GFR (African American) 46.1; Est GFR (Non-African American) 39.8
[2020-10-11] MEDS: HYDROmorphone INJ 0.5 MG/0.5 ML SYR IV PRN ×4 (07:25→21:32)
[2020-10-11] MEDS: DUTASTERIDE 0.5 MG SCH ×3 (07:25→23:18)
[2020-10-11] MEDS: GABAPENTIN 100 MG CAP PO SCH ×2 (08:18→21:26)
[2020-10-11] MEDS: CYANOCOBALAMIN (VITAMIN B-12) 2,500 MCG TAB.SUBL SL SCH (08:19)
[2020-10-11] MEDS: CEROVITE ADV FORMULA TAB PO SCH (08:19)
[2020-10-11] MEDS: FENOFIBRATE NANOCRYSTALLIZED 145 MG TABLET PO SCH (08:19)
[2020-10-11] MEDS: carvediloL 6.25 MG TAB PO SCH ×2 (08:19→21:26)
[2020-10-11] MEDS: PANTOprazole 40 MG TAB PO SCH (08:19)
[2020-10-11] MEDS: CHOLECALCIFEROL 1,000 UNITS 25 MCG TAB PO SCH (08:19)
[2020-10-11] MEDS: TAMSULOSIN HCL 0.4 MG CAP PO SCH (08:19)
[2020-10-11] MEDS: DOCUSATE SODIUM 100 MG CAP PO SCH ×2 (08:20→21:33)
[2020-10-11] MEDS: ASPIRIN 81 MG ECTAB PO SCH ×2 (08:20→21:27)
[2020-10-11] MEDS: INSULIN ASPART 100 UNITS/ML 3 ML PEN SC SCH ×5 (08:23→21:19)
[2020-10-11] MEDS: INSULIN GLARGINE SOLOSTAR 100 UNITS/ML 3 ML PEN SC SCH (08:24)
--- NOTE | 2020-10-11 09:48 | Orthopedic Progress Note ---
Date of Service October 11, 2020 Assessment & Plan (1) Wound dehiscence: POD #2, Left Knee I&D, Retinacular repair, and poly exchange. PT/ OT- WBAT with walker and hinged knee brace 0-30 degrees. DVT proph- ASA D/C planning- Inpatient Rehab. Intra op- Gram stain with Rare WBC's and rare gram positive Culture- coag neg staph On Ancef q8 hrs -ID consult pending Post op anemia- Hgb 8.4- stable As per medicine- BUN/ Cr- 33/1.89- Hx of renal failure. Intra op findings as above. Admission and Anticipated Discharge Date Admission Date: October 09, 2020 Subjective Post Operative Progress Note Patient seen sitting up on side of bed, comfortable, denies complaints, pain well controlled, no acute issues. Denies F/C/N/V/SOB/CP. Review of Systems Review of Systems: All systems reviewed & are unremarkable except as noted in HPI & below Constitutional: as per Subjective / HPI Physical Exam Physical Exam: LLE NVSI +EHL/FHL/TA/GS SILT grossly, +2 DP pulse, compartments soft NT, dressing cdi. Constitutional: WD/WN, vitals as above Results & Data ([place]) Vital Signs (Past 12 Hours) Vital Signs Temp Pulse Pulse Resp BP Pulse Ox 10/11/20 07:17 36.5 C 72 16 131/64 98 10/10/20 23:05 37.0 C 75 16 109/53 L 95
[2020-10-11] MEDS: ceFAZolin 1000MG 1,000 MG/7.5 ML SYR IV SCH (11:23)
--- NOTE | 2020-10-11 12:45 | Hospitalist Progress Note ---
Date of Service October 11, 2020 Assessment & Plan (1) Wound dehiscence: * s/p left knee I & D and poly exchange for 10.09.[address] Alcocer. EBL 17cc. Pre-op h/h 9.8/28.2 Hb is 8.4 this morning, stable no need for transfusion unless it is < 7.0 * PT/OT/pain management/DVT prophylaxis per primary service -- plans for ASA 81mg BID x 30days for DVT proph * Wound cultures growing coag bakari galindo, ID consulted, defer to their recommendations * Ancef for now (2) History of knee replacement procedure of left knee: * September 04, 2020 * See above (3) CAD (coronary artery disease): * Hx CABGx3, [place] s/p stenting in 1994. Follows with Cardiology in [place] * He has had no unstable anginal symptoms and did have a preop stress test in January 2020 * Continue atorvastatin and aspirin, carvedilol * no chest pain during admission (4) Benign essential HTN: * BP stable 131/64 * Continue carvedilol * Lisinopril discontinued last admission for renal insufficiency, continue to hold on discharge * Continue to monitor (5) Hyperlipidemia: * continue statin, fenofibrate (6) Diabetes mellitus, type 2: * Pharmacy consulted -- typically on glipizide and Victoza outpatient -- held while inpatient * monitor for hypoglycemia, no episodes, had some sugars in the 300's (7) GERD (gastroesophageal reflux disease): * Continue protonix while inpatient -- on omeprazole [employer] (8) Anxiety: * Continue home Xanax 1 mg p.o. twice daily as needed (9) Acute blood loss anemia: Hb down to 8.0 from 9.8, EBL was only 17cc, this was on 10/10 today Hb is up to 8.4 likely dilutional no need for transfusion at this time, monitor (10) CKD (chronic kidney disease), stage III: Cr was 1.6 prior to admission, 1.8 yesterday gave one more bag of NSS, Cr is down to 1.6 this morning he is making urine, electrolytes stable no further fluids, renal function stable (11) DVT prophylaxis: * ASA 81mg BID per primary service Thank you for allowing hospitalist service to participate in the care of Mr. Guan. Hospitalist service will SIGN OFF at this time, please call for any acute problems Admission and Anticipated Discharge Date Admission Date: October 09, 2020 Subjective patient doing well reviewed labs, Hb is 8.4 and CR is 1.6, no further fluids needed ID is consulted for antibiotic recommendations patient eating, breathing well on room air plan for rehab, I agree Review of Systems Review of Systems: All systems reviewed & are unremarkable except as noted in Subjective Musculoskeletal: + joint pain (left knee) Physical Exam Constitutional: WD/WN, vitals as above Neck: trachea midline, no thyromegaly Respiratory: normal respiratory effort, lungs clear to auscultation Cardiovascular: RRR, no murmur, no edema Gastrointestinal (Abdomen): normal bowel sounds, soft, nontender, no hepatosplenomegaly Musculoskeletal: Head/Neck/Chest: normocephalic, head atraumatic and neck supple Extremities: strength 5/5 throughout; + extremities abnormal to inspection (left knee wrapped, swollen), no muscle atrophy, no cyanosis, no clubbing and no petechiae Skin: no rashes, warm and dry Neurologic: patellar DTR's 2+ bilat, sensation intact and PERRL, EOMI, accommodation nl, no face palsy, no dysarthria Psychiatric: A+Ox3, euthymic affect Results & Data Results & Data ([facility]) Vital Signs (Past 12 Hours) Vital Signs Temp Pulse Resp BP Pulse Ox 10/11/20 07:17 36.5 C 72 16 131/64 98 Laboratory Results Laboratory Results - last 24 hr 10/10/20 10/10/20 10/10/20 15:19 17:15 20:34 Hgb 8.4 L Hct 25.4 L Creatinine Est Cr Clr Drug Dosing Est GFR ( Amer) Est GFR (Non-Af Amer) POC Glucose 134 H 143 H 10/11/20 10/11/20 10/11/20 05:24 08:12 11:54 Hgb Hct Creatinine 1.60 H Est Cr Clr Drug Dosing 38.6 Est GFR ( Amer) 46.1 Est GFR (Non-Af Amer) 39.8 POC Glucose 202 H 205 H Medications Administered Current Inpatient Medications Acetaminophen (Acetaminophen 500 Mg Tab) 1,000 mg PO Q8 [facility] Stop: 11/08/20 14:44 Last Admin: 10/11/20 12:37 Dose: Not Given Documented by: Alprazolam (Alprazolam 0.5 Mg Tablet) 1 - 2 mg PO HS PRN PRN Reason: Anxiety Stop: 11/08/20 14:44 Last Admin: 10/10/20 22:52 Dose: 2 mg Documented by: Aspirin (Aspirin 81 Mg Ectab) 81 mg PO BID [facility] Stop: 11/08/20 20:59 Last Admin: 10/11/20 08:20 Dose: 81 mg Documented by: Atorvastatin Calcium (Atorvastatin 40 Mg Tab) 40 mg PO PM [facility] Stop: 11/08/20 20:59 Last Admin: 10/10/20 20:40 Dose: 40 mg Documented by: Bisacodyl (Bisacodyl 10 Mg Supp) 10 mg TX DAILY PRN PRN Reason: Constipation Stop: 11/08/20 14:44 Carvedilol (Carvedilol 6.25 Mg Tab) 6.25 mg PO BID [facility] Stop: 11/08/20 20:59 Last Admin: 10/11/20 08:19 Dose: 6.25 mg Documented by: Cyanocobalamin (Cyanocobalamin (Vitamin B-12) 2,500 Mcg Tab.Subl) 2,500 mcg SL QAM [facility] Stop: 11/09/20 08:59 Last Admin: 10/11/20 08:19 Dose: 2,500 mcg Documented by: Docusate Sodium (Docusate Sodium 100 Mg Cap) 100 mg PO BID [facility] Stop: 11/08/20 20:59 Last Admin: 10/11/20 08:20 Dose: Not Given Documented by: Fenofibrate (Fenofibrate Nanocrystallized 145 Mg Tablet) 145 mg PO QAM [facility] Stop: 11/09/20 08:59 Last Admin: 10/11/20 08:19 Dose: 145 mg Documented by: Gabapentin (Gabapentin 100 Mg Cap) 100 mg PO QAM [facility] Stop: 11/09/20 08:59 Last Admin: 10/11/20 08:18 Dose: 100 mg Documented by: Gabapentin (Gabapentin 100 Mg Cap) 200 mg PO HS [facility] Stop: 11/08/20 20:59 Last Admin: 10/10/20 20:38 Dose: 200 mg Documented by: Hydromorphone HCl (Hydromorphone Inj 0.5 Mg/0.5 Ml Syr) 0.5 mg IV Q4H PRN PRN Reason: Pain or Pre PT Stop: 10/23/20 14:44 Last Admin: 10/11/20 11:28 Dose: 0.5 mg Documented by: Cefazolin Sodium (Ancef 1000mg) 1,000 mg in 7.5 mls @ 2.5 mls/min IV Q12H [facility]; Protocol Stop: 11/20/20 22:59 Last Admin: 10/11/20 11:23 Dose: 2.5 mls/min Documented by: Insulin Aspart (Insulin Aspart 100 Units/Ml 3 Ml Pen) 0 units SC ACHS [facility]; Protocol Stop: 11/08/20 16:29 Last Admin: 10/11/20 12:37 Dose: 5 units Documented by: Insulin Glargine (Insulin Glargine Solostar 100 Units/Ml 3 Ml Pen) 15 units SC DAILY [facility] Stop: 11/09/20 09:29 Last Admin: 10/11/20 08:24 Dose: 15 units Documented by: Insulin Glargine (Insulin Glargine Solostar 100 Units/Ml 3 Ml Pen) 0 units SC HS [facility]; Protocol Stop: 11/09/20 20:59 Last Admin: 10/10/20 20:44 Dose: Not Given Documented by: Magnesium Hydroxide (Magnesium Hydroxide Susp 30 Ml Udc) 30 ml PO Q6H PRN PRN Reason: Constipation Stop: 11/08/20 14:44 Metoclopramide HCl (Metoclopramide Hcl Inj 5 Mg/Ml 2 Ml Vial) 10 mg IV Q6H PRN PRN Reason: Nausea And Vomiting Stop: 11/08/20 14:44 Miscellaneous (Dutasteride 0.5 Mg Capsule - Order Awaiting Action) 1 ea N/A QS [facility] Stop: 11/09/20 00:00 Last Admin: 10/11/20 07:25 Dose: Not Given Documented by: Miscellaneous Information (Pharmacy Glycemic Mgmt Consult) 1 ea N/A UD PRN PRN Reason: Consult Stop: 11/08/20 14:53 Multivitamins/Minerals (Cerovite Adv Formula Tab) 1 tab PO QAM [facility] Stop: 11/09/20 08:59 Last Admin: 10/11/20 08:19 Dose: 1 tab Documented by: Naloxone HCl (Naloxone Hcl 0.4 Mg/1 Ml Vial/Carp) 0.1 mg IV Q5M PRN PRN Reason: Oversedation/Resp Depression Stop: 11/08/20 14:44 Ondansetron HCl (Ondansetron Inj 2 Mg/Ml 2 Ml Vial) 4 mg IV Q6H PRN PRN Reason: Nausea And Vomiting Stop: 11/08/20 14:44 Oxycodone HCl (Oxycodone Hcl Ir 5 Mg Tab (Immediate Release)) 5 - 10 mg PO Q4H PRN PRN Reason: Pain or Pre PT Stop: 10/23/20 14:44 Last Admin: 10/10/20 17:40 Dose: 10 mg Documented by: Pantoprazole Sodium (Pantoprazole 40 Mg Tab) [facility]: 11/09/20 08:59 Last Admin: 10/11/20 08:19 Dose: 40 mg Documented by: Polyethylene Glycol (Polyethylene (Miralax) 17 Gm Pack) 17 gm PO DAILY PRN PRN Reason: constipation Stop: 11/08/20 14:44 Sennosides (Senna 8.6 Mg Tab) 17.2 mg PO [facility] Stop: 11/08/20 20:59 Last Admin: 10/10/20 20:39 Dose: 17.2 mg Documented by: Tamsulosin HCl (Tamsulosin Hcl 0.4 Mg Cap) 0.[facility]: 11/09/20 08:59 Last Admin: 10/11/20 08:19 Dose: 0.4 mg Documented by: Vitamin D (Cholecalciferol 1,000 Units 25 Mcg Tab) 5,000 [facility] [place]: 11/09/20 08:59 Last Admin: 10/11/20 08:19 Dose: 5,000 units Documented by: PG Care Time/CCT Total # of Minutes Spent Total Time Spent with Patient: Total time spent is greater than 50% in coordination of care (as documented) at patient's floor/unit and/or counseling patient: Coding Level of Care Code 18731 Subseq Hosp Care Lvl 3 Diagnoses Wound dehiscence T81.30XA History of knee replacement procedure of left knee Z96.652 CAD (coronary artery disease) I25.10 Benign essential HTN I10 Hyperlipidemia E78.5 Diabetes mellitus, type 2 E11.9 GERD (gastroesophageal reflux disease) K21.9 Anxiety F41.9 Acute blood loss anemia D62 CKD (chronic kidney disease), stage III N18.30 DVT prophylaxis Z29.9
[2020-10-11] MEDS: SENNA 8.6 MG TAB PO SCH (21:25)
[2020-10-11] MEDS: ATORVASTATIN 40 MG TAB PO SCH (21:27)
[2020-10-11] MEDS ORDERED: ceFAZolin 2000MG 2,000 MG/15 ML SYR IV SCH (23:00)
[2020-10-11] MEDS: ALPRAZolam 0.5 MG TABLET PO PRN (23:26)
[2020-10-12] MEDS: ACETAMINOPHEN 500 MG TAB PO SCH ×3 (05:51→21:04)
[2020-10-12 07:02] LABS: Creatinine Clr Calc Pharmacy 43.4 ml/min; Est GFR (African American) 53.3
[2020-10-12] MEDS: DUTASTERIDE 0.5 MG SCH ×3 (08:56→22:34)
[2020-10-12] MEDS: FENOFIBRATE NANOCRYSTALLIZED 145 MG TABLET PO SCH (08:57)
[2020-10-12] MEDS: GABAPENTIN 100 MG CAP PO SCH ×2 (08:57→20:11)
[2020-10-12] MEDS: PANTOprazole 40 MG TAB PO SCH (08:57)
[2020-10-12] MEDS: TAMSULOSIN HCL 0.4 MG CAP PO SCH (08:57)
[2020-10-12] MEDS: CYANOCOBALAMIN (VITAMIN B-12) 2,500 MCG TAB.SUBL SL SCH (08:57)
[2020-10-12] MEDS: CEROVITE ADV FORMULA TAB PO SCH (08:57)
[2020-10-12] MEDS: CHOLECALCIFEROL 1,000 UNITS 25 MCG TAB PO SCH (08:57)
[2020-10-12] MEDS: carvediloL 6.25 MG TAB PO SCH ×2 (08:57→20:10)
[2020-10-12] MEDS: ASPIRIN 81 MG ECTAB PO SCH ×2 (08:57→20:11)
[2020-10-12] MEDS ORDERED: INSULIN GLARGINE SOLOSTAR 100 UNITS/ML 3 ML PEN SC SCH (09:00)
[2020-10-12] MEDS: INSULIN ASPART 100 UNITS/ML 3 ML PEN SC SCH ×4 (09:04→21:03)
[2020-10-12] MEDS: INSULIN GLARGINE SOLOSTAR 100 UNITS/ML 3 ML PEN SC SCH (09:04)
[2020-10-12] MEDS: DOCUSATE SODIUM 100 MG CAP PO SCH ×2 (09:08→20:10)
[2020-10-12] MEDS: oxyCODONE HCL IR 5 MG TAB (IMMEDIATE RELEASE) PO PRN ×2 (09:11→16:18)
[2020-10-12] MEDS: HYDROmorphone INJ 0.5 MG/0.5 ML SYR IV PRN (09:21)
--- NOTE | 2020-10-12 10:28 | Orthopedic Progress Note ---
Date of Service October 12, 2020 Assessment & Plan (1) Wound dehiscence: POD #3, Left Knee I&D, Retinacular repair, and poly exchange. PT/ OT- WBAT with walker and hinged knee brace 0-30 degrees. DVT proph- ASA D/C planning- Inpatient Rehab. Intra op- Gram stain with Rare WBC's and rare gram positive Culture- coag neg staph -sensitivities pending On Ancef q8 hrs -ID consult pending Post op anemia- Hgb 8.4- stable Admission and Anticipated Discharge Date Admission Date: October 09, 2020 Subjective Postop day 3 Patient awake and alert. Pain controlled. Only complaint this morning is that he does not like using the immobilizer when ambulating. No other complaints at this time. Physical Exam Physical Exam: Dressings are clean, dry, and intact. Hemovac had 50 mL from the previous shift. Calves are soft and nontender. Neurovascular is intact. Toes are mobile. Results & Data ([facility]) Vital Signs (Past 12 Hours) Vital Signs Temp Pulse Pulse Resp BP Pulse Ox 10/12/20 07:37 36.9 C 73 16 147/70 H 96 10/11/20 22:30 36.9 C 75 16 150/72 H 97
[2020-10-12] MEDS: ceFAZolin 2000MG 2,000 MG/15 ML SYR IV SCH ×2 (11:41→20:00)
--- NOTE | 2020-10-12 14:06 | Pharmacy Report ---
Pharmacy Glycemic Short Note 2 - Date of Service October 12, 2020 - Glycemic Short BSG Results (Last 24 hours): 10/11/20 10/11/20 10/11/20 16:01 17:25 20:36 POC Glucose 180 H 172 H 160 H 10/12/20 10/12/20 08:00 12:18 POC Glucose 118 H 286 H OUTPATIENT ANTIDIABETIC REGIMEN: * glipizide ASSESSMENT: 10/12: * Patient received total of 43 units of insulin yesterday, of which 15 were basal insulin * Fasting BSG 118 mg/dL - much improved / have scale for Lantus * Lunch time BSG trending upward. Asked nurse to see if patient snacking? Unclear for reasoning as BSGs have been relatively controlled * Continue same parameters for CF/CR for now 10/10: * Patient received ~40 units of insulin yesterday, of which 15 were basal insulin * POD 1 today, fasting BSG elevated at 211 mg/dL - will schedule Lantus 15 units for this AM * Lunch time BSG trending up, however AM scheduled Lantus given late at ~1200. Possible reasoning for higher lunch time BSG * Plan to tighten CF/CR slightly with lunch time, and add Lantus HS for if BSGs remain elevated PLAN FOR INPATIENT GLYCEMIC CONTROL: * Hold outpatient oral diabetes medications * Basal insulin * Lantus 15-20 units daily * Bolus insulin * NovoLog per scale ACHS or Q6hrs while NPO * Goal Range: Low 110 mg/dL - High 140 mg/dL * Correction Factor: 20 mg/dL/unit * Nutritional / Prandial insulin per carb ratio of 1 unit per 8 grams CHO consumed PLAN FOR DISCHARGE: * A1c of 7.6% indicates good glycemic control. Older patients may be more susceptible to hypoglycemic effects of glipizide. Reasonable to continue home glipizde, however would ensure patient is not experiencing hypoglycemia outpatient with agent.
[2020-10-12] MEDS: SENNA 8.6 MG TAB PO SCH (20:11)
[2020-10-12] MEDS: ATORVASTATIN 40 MG TAB PO SCH (20:11)
[2020-10-12] MEDS: ALPRAZolam 0.5 MG TABLET PO PRN (23:24)
[2020-10-13] MEDS: ceFAZolin 2000MG 2,000 MG/15 ML SYR IV SCH ×3 (04:59→20:17)
[2020-10-13] MEDS: ACETAMINOPHEN 500 MG TAB PO SCH ×3 (05:01→22:18)
[2020-10-13 06:43] LABS: Creatinine Clr Calc Pharmacy 41.4 ml/min; Est GFR (African American) 50.3; Est GFR (Non-African American) 43.4
[2020-10-13] MEDS: DUTASTERIDE 0.5 MG SCH ×3 (09:11→23:28)
[2020-10-13] MEDS: ASPIRIN 81 MG ECTAB PO SCH ×2 (09:12→09:17)
[2020-10-13] MEDS: carvediloL 6.25 MG TAB PO SCH ×2 (09:12→20:25)
[2020-10-13] MEDS: TAMSULOSIN HCL 0.4 MG CAP PO SCH (09:12)
[2020-10-13] MEDS: INSULIN GLARGINE SOLOSTAR 100 UNITS/ML 3 ML PEN SC SCH (09:13)
[2020-10-13] MEDS: INSULIN ASPART 100 UNITS/ML 3 ML PEN SC SCH ×4 (09:15→22:16)
[2020-10-13] MEDS: PANTOprazole 40 MG TAB PO SCH (09:16)
[2020-10-13] MEDS: GABAPENTIN 100 MG CAP PO SCH ×2 (09:17→20:20)
[2020-10-13] MEDS: CEROVITE ADV FORMULA TAB PO SCH (09:17)
[2020-10-13] MEDS: FENOFIBRATE NANOCRYSTALLIZED 145 MG TABLET PO SCH (09:17)
[2020-10-13] MEDS: CYANOCOBALAMIN (VITAMIN B-12) 2,500 MCG TAB.SUBL SL SCH (09:18)
[2020-10-13] MEDS: CHOLECALCIFEROL 1,000 UNITS 25 MCG TAB PO SCH (09:18)
[2020-10-13] MEDS: DOCUSATE SODIUM 100 MG CAP PO SCH ×2 (11:23→20:24)
--- NOTE | 2020-10-13 14:30 | Pharmacy Report ---
Pharmacy Glycemic Short Note 2 - Date of Service October 13, 2020 - Glycemic Short BSG Results (Last 24 hours): 10/12/20 10/12/20 10/13/20 17:12 20:52 08:00 POC Glucose 224 H 184 H 122 H 10/13/20 11:47 POC Glucose 291 H OUTPATIENT ANTIDIABETIC REGIMEN: * glipizide ASSESSMENT: 10/13: * Patient received a total of 43 units of insulin yesterday, of which were basal. * Fasting BSG has remained well controlled, will continue with current lantus scale * Post prandial BSGs remain elevated, particularly at lunchtime. CR was tightened this morning, however 0730 novolog was not administered until 0915 and lunchtime BSG was drawn at 1145, likely not giving enough time to see the full effect of the novolog dose. Will continue to monitor, but NovoLog may need to be tightened further tomorrow. 10/12: * Patient received total of 43 units of insulin yesterday, of which 15 were basal insulin * Fasting BSG 118 mg/dL - much improved / have scale for Lantus * Lunch time BSG trending upward. Asked nurse to see if patient snacking? Unclear for reasoning as BSGs have been relatively controlled * Continue same parameters for CF/CR for now 10/10: * Patient received ~40 units of insulin yesterday, of which 15 were basal insulin * POD 1 today, fasting BSG elevated at 211 mg/dL - will schedule Lantus 15 units for this AM * Lunch time BSG trending up, however AM scheduled Lantus given late at ~1200. Possible reasoning for higher lunch time BSG * Plan to tighten CF/CR slightly with lunch time, and add Lantus HS for if BSGs remain elevated PLAN FOR INPATIENT GLYCEMIC CONTROL: * Hold outpatient oral diabetes medications * Basal insulin * Lantus 15-20 units daily * Bolus insulin * NovoLog per scale ACHS or Q6hrs while NPO * Goal Range: Low 110 mg/dL - High 140 mg/dL * Correction Factor: 20 mg/dL/unit * Nutritional / Prandial insulin per carb ratio of 1 unit per 7 grams CHO consumed PLAN FOR DISCHARGE: * A1c of 7.6% indicates good glycemic control. Older patients may be more susceptible to hypoglycemic effects of glipizide. Reasonable to continue home glipizde, however would ensure patient is not experiencing hypoglycemia outpatient with agent.
[2020-10-13] MEDS: oxyCODONE HCL IR 5 MG TAB (IMMEDIATE RELEASE) PO PRN ×2 (15:31→20:27)
--- NOTE | 2020-10-13 16:08 | Orthopedic Progress Note ---
Date of Service October 13, 2020 Assessment & Plan (1) Wound dehiscence: POD #4, Left Knee I&D, Retinacular repair, and poly exchange. PT/ OT- WBAT with walker and hinged knee brace 0-30 degrees. DVT proph- ASA D/C planning- Inpatient Rehab. Intra op- Gram stain with Rare WBC's and rare gram positive Culture- coag neg staph -sensitivities pending On Ancef q8 hrs -ID consult pending Post op anemia- Hgb 8.4- stable Admission and Anticipated Discharge Date Admission Date: October 09, 2020 Subjective Post Operative Progress Note Patient seen sitting up in bed, comfortable, denies complaints, pain well controlled, no acute issues. Denies F/C/N/V/SOB/CP. Review of Systems Review of Systems: All systems reviewed & are unremarkable except as noted in HPI & below Constitutional: as per Subjective / HPI Physical Exam Physical Exam: LLE NVSI +EHL/FHL/TA/GS SILT grossly, +2 DP pulse, compartments soft NT, dressing cdi. Hinge brace in place. Constitutional: WD/WN, vitals as above Results & Data ([facility]) Vital Signs (Past 12 Hours) Vital Signs Temp Pulse Resp BP Pulse Ox 10/13/20 15:09 37.2 C 77 17 124/68 95 10/13/20 12:39 95 10/13/20 07:06 37 C 72 18 138/71 94 Laboratory Results 10/13/20 10/13/20 10/13/20 Range/Units 11:47 08:00 05:25 Creatinine 1.49 H (0.6-1.4) mg/dl Est Cr Clr Drug Dosing 41.4 ml/min Est GFR ( Amer) 50.3 Est GFR (Non-Af Amer) 43.4 POC Glucose 291 H 122 H (70-99) mg/dl 10/12/20 10/12/20 Range/Units 20:52 17:12 Creatinine (0.6-1.4) mg/dl Est Cr Clr Drug Dosing ml/min Est GFR ( Amer) Est GFR (Non-Af Amer) POC Glucose 184 H 224 H (70-99) mg/dl
[2020-10-13] MEDS: SENNA 8.6 MG TAB PO SCH (20:18)
[2020-10-13] MEDS: ATORVASTATIN 40 MG TAB PO SCH (20:20)
[2020-10-13] MEDS: ALPRAZolam 0.5 MG TABLET PO PRN (23:35)
[2020-10-13] MEDS: HYDROmorphone INJ 0.5 MG/0.5 ML SYR IV PRN (23:36)
[2020-10-14] MEDS: ceFAZolin 2000MG 2,000 MG/15 ML SYR IV SCH (05:03)
[2020-10-14] MEDS: ACETAMINOPHEN 500 MG TAB PO SCH (05:03)
[2020-10-14 06:12] LABS: Creatinine Clr Calc Pharmacy 38.8 ml/min; Est GFR (African American) 46.5; Est GFR (Non-African American) 40.1
--- NOTE | 2020-10-14 08:16 | Orthopedic Progress Note ---
Date of Service October 14, 2020 Assessment & Plan (1) Wound dehiscence: POD #5, Left Knee I&D, Retinacular repair, and poly exchange. PT/ OT- WBAT with walker and hinged knee brace 0-30 degrees. DVT proph- ASA D/C planning-Home with home health services Culture- coag neg staph -sensitivities pending Pain management-switch from oxycodone to hydrocodone to achieve better pain control with po meds. On Ancef q8 hrs -ID consult pending Admission and Anticipated Discharge Date Admission Date: October 09, 2020 Subjective Postop day 5 Patient awake and alert. Dates he has some pain off and on his left knee but otherwise is comfortable. Carolyn that he needs to start using the oral pain medications rather than the IV. He states that the oxycodone does not seem to be helping him at all. We discussed switching him over to hydrocodone instead. He states he has had that in the past and seems to work. He is concerned about home IV antibiotics and we discussed that he will need what ever is the best choice for his knee to get better. He seems to understand at this point but was telling case management he was going home on pills. We discussed again that he would need whichever antibiotic would be best for his recovery which could be IV antibiotics. No other complaints or concerns at this time. Physical Exam Physical Exam: Gennaro dressing is clean, dry, and intact. No erythema noted around the dressing. Minimal swelling. Mild bruising noted on the back of the leg. Calves are soft and nontender. Neurovascular intact. Toes are mobile. Results & Data ([facility]) Vital Signs (Past 12 Hours) Vital Signs Temp Pulse Pulse Resp BP Pulse Ox 10/14/20 05:01 36.7 C 76 18 150/72 H 99 10/13/20 22:42 36.9 C 76 16 117/67 97 10/13/20 20:16 79 128/69
[2020-10-14] MEDS: TAMSULOSIN HCL 0.4 MG CAP PO SCH (08:39)
[2020-10-14] MEDS: CYANOCOBALAMIN (VITAMIN B-12) 2,500 MCG TAB.SUBL SL SCH (08:39)
[2020-10-14] MEDS: carvediloL 6.25 MG TAB PO SCH ×2 (08:39→21:46)
[2020-10-14] MEDS: GABAPENTIN 100 MG CAP PO SCH ×2 (08:39→21:47)
[2020-10-14] MEDS: CHOLECALCIFEROL 1,000 UNITS 25 MCG TAB PO SCH (08:39)
[2020-10-14] MEDS: DOCUSATE SODIUM 100 MG CAP PO SCH ×2 (08:40→21:46)
[2020-10-14] MEDS: PANTOprazole 40 MG TAB PO SCH (08:40)
[2020-10-14] MEDS: DUTASTERIDE 0.5 MG SCH ×2 (08:40→16:25)
[2020-10-14] MEDS: CEROVITE ADV FORMULA TAB PO SCH (08:40)
[2020-10-14] MEDS: FENOFIBRATE NANOCRYSTALLIZED 145 MG TABLET PO SCH (08:40)
[2020-10-14] MEDS: ASPIRIN 81 MG ECTAB PO SCH ×2 (08:40→21:46)
[2020-10-14] MEDS: INSULIN GLARGINE SOLOSTAR 100 UNITS/ML 3 ML PEN SC SCH (08:44)
[2020-10-14] MEDS: INSULIN ASPART 100 UNITS/ML 3 ML PEN SC SCH ×4 (08:44→21:50)
[2020-10-14] MEDS: HYDROCODONE/ACETAMOPHEN 5/325MG TAB PO PRN ×2 (08:48→16:34)
[2020-10-14] MEDS ORDERED: VANCOMYCIN CONSULT ACTIVE PRN (11:58)
[2020-10-14] MEDS ORDERED: VANCOMYCIN HCL 1,000 MG in SODIUM CHLORIDE 0.9% 250 ML IV SCH (12:00)
[2020-10-14 12:31] LABS: Hematocrit (blood only) 28.6 % (42-52); Hemoglobin 9.3 g/dL (14.0-18.0); Mean Corpuscular Hemoglobin 30.5 pg (25-34); Mean Corpuscular Hgb Conc 32.5 g/dL (32-36); Mean Corpuscular Volume 93.8 fL (80-100); Mean Platelet Volume 9.2 fL (7.4-10.4); Platelet Count 215 K/uL (130-400); RDW Coefficient of Variation 13.8 % (11.5-14.5); Red Blood Count 3.05 M/uL (4.7-6.1); White Blood Count 5.13 K/uL (4.8-10.8)
[2020-10-14 12:47] LABS: BUN Creatinine Ratio 11.7 (10-20); Calcium 9.3 mg/dl (8.5-10.1); Creatinine Clr Calc Pharmacy 40.1 ml/min; Est GFR (African American) 48.3; Est GFR (Non-African American) 41.7; Potassium 3.9 mmol/L (3.5-5.1)
[2020-10-14] MEDS ORDERED: VANCOMYCIN HCL 2,000 MG in SODIUM CHLORIDE 0.9% 500 ML IV ONE (13:00)
--- NOTE | 2020-10-14 13:38 | Pharmacy Report ---
Pharmacy Abx Initial Consult - Date of Service October 14, 2020 - Pharmacy Dosing Scope Date of Consult: 10/14/20 Consultation requested by: Keyana Roldan PA-C Pharmacy is consulted to initiate Vancomycin IV dosing therapy, order appropriate labs and adjust drug dose/frequency. - Subjective The patient is a 80 year old M admitted on 10/09/20 13:49. - Objective Height: 5 ft 8.5 in Weight: 83.869 kg Vital Signs (Past 12hrs): Vital Signs Temp Pulse Resp BP Pulse Ox 10/14/20 05:01 36.7 C 76 18 150/72 H 99 Lab Results (24hrs): Laboratory Tests (24 Hours) 10/14/20 10/14/20 10/14/20 12:14 12:14 05:19 WBC 5.13 Creatinine 1.54 H 1.59 H Est Cr Clr Drug Dosing 40.1 38.8 Micro Results: 10/09/20 12:10 Gram Stain - Final Knee,Left Aerobic and Anaerobic Culture - Final Coag neg staph not lugdunensis - Risk Factors for Resistance * Hospitalization for 48 hours or more within the past 90 days - Assessment & Plan Assessment 80 year old M admitted for joint infection s/p L TKA in August 2020. Patient fell on this knee few times. Post I & D, knee culture grew Coag neg staph resistant to Oxacillin, Tetracyclines but sensitive to Vanco. ID consulted and recommended Vancomycin + Rifampin Plan Vancomycin IV * Estimated PK Parameters: Vd 0.7 L/kg, Cullen 0.0277 hr-1, t1/2 25 hr * Loading dose: 2000 mg (23 mg/kg) IV x 1 dose ordered today. * Patient meets criteria for vancomycin AUC dosing nomogram AUC/MANISHA is the preferred PK/PD target for vancomycin Target AUC/MANISHA = 400-600 AUC guided dosing is effective and associated with decreased risk of nephrotoxicity * Ordered Vanc 1500 mg IV q24h for maintenance dosing. * Trough level ordered before dose at 10 AM on 10/16/20. Pharmacy will continue to follow and will adjust dose/frequency as necessary. Thank you.
--- NOTE | 2020-10-14 15:06 | Pharmacy Report ---
Pharmacy Glycemic Short Note 2 - Date of Service October 14, 2020 - Glycemic Short BSG Results (Last 24 hours): 10/13/20 10/13/20 10/14/20 17:06 20:36 07:54 Glucose POC Glucose 254 H 178 H 159 H 10/14/20 10/14/20 11:49 12:14 Glucose 237 H POC Glucose 282 H OUTPATIENT ANTIDIABETIC REGIMEN: * glipizide ASSESSMENT: 10/14: * Patient received total 46 units of insulin yesterday, of which 15 units were basal and 31 units bolus. * Post-prandial BSGs yesterday were elevated with lunch and dinner BSGs above 200 mg/dl. * Fasting BSG this AM was also elevated = 159 mg/dl. Therefore basal Insulin parameters were tightened so that patient received 20 units basal this AM. * Lunch BSG was still elevated today, Novolog carb ratio was also tightened slightly at that time. 10/13: * Patient received a total of 43 units of insulin yesterday, of which 15 units were basal. * Fasting BSG has remained well controlled, will continue with current lantus scale * Post prandial BSGs remain elevated, particularly at lunchtime. CR was tightened this morning, however 0730 novolog was not administered until 0915 and lunchtime BSG was drawn at 1145, likely not giving enough time to see the full effect of the novolog dose. Will continue to monitor, but NovoLog may need to be tightened further tomorrow. PLAN FOR INPATIENT GLYCEMIC CONTROL: * Hold outpatient oral diabetes medications * Basal insulin: BSG scale tightened * Lantus 15-20 units based on BSG scale QAM * Bolus insulin: CR tightened * NovoLog per scale ACHS or Q6hrs while NPO * Goal Range: Low 110 mg/dL - High 140 mg/dL * Correction Factor: 20 mg/dL/unit * Nutritional / Prandial insulin per carb ratio of 1 unit per 6 grams CHO consumed PLAN FOR DISCHARGE: * A1c of 7.6% indicates good glycemic control. Older patients may be more susceptible to hypoglycemic effects of glipizide. Reasonable to continue home glipizde, however would ensure patient is not experiencing hypoglycemia outpatient with agent.
[2020-10-14] MEDS: rifAMPin 300 MG CAPSULE PO SCH (21:46)
[2020-10-14] MEDS: ATORVASTATIN 40 MG TAB PO SCH (21:47)
[2020-10-14] MEDS: SENNA 8.6 MG TAB PO SCH (21:47)
[2020-10-14] MEDS: ALPRAZolam 0.5 MG TABLET PO PRN (22:28)
[2020-10-15] MEDS: DUTASTERIDE 0.5 MG SCH ×3 (00:02→17:32)
[2020-10-15 06:25] LABS: Basophils # (auto) 0.02 K/uL (0-0.2); Basophils % (auto) 0.4 %; Eosinophils # (auto) 0.28 K/uL (0-0.5); Eosinophils % (auto) 5.4 %; Hematocrit (blood only) 25.8 % (42-52); Hemoglobin 8.6 g/dL (14.0-18.0); Immature Granulocytes # (auto) 0.01 K/uL (0.00-0.02); Immature Granulocytes % (auto) 0.2 %; Lymphocytes # (auto) 1.43 K/uL (1.2-3.4); Lymphocytes % (auto) 27.7 %; Mean Corpuscular Hemoglobin 30.9 pg (25-34); Mean Corpuscular Hgb Conc 33.3 g/dL (32-36); Mean Corpuscular Volume 92.8 fL (80-100); Mean Platelet Volume 9.4 fL (7.4-10.4); Monocytes % (auto) 11.6 %; Neutrophils # (auto) 2.83 K/uL (1.4-6.5); Neutrophils % (auto) 54.7 %; Platelet Count 204 K/uL (130-400); RDW Coefficient of Variation 13.6 % (11.5-14.5); RDW Standard Deviation 46.1 fL (36.4-46.3); Red Blood Count 2.78 M/uL (4.7-6.1); White Blood Count 5.17 K/uL (4.8-10.8)
[2020-10-15 07:00] LABS: Creatinine Clr Calc Pharmacy 44.4 ml/min; Est GFR (African American) 54.7; Est GFR (Non-African American) 47.2
[2020-10-15] MEDS: HYDROCODONE/ACETAMOPHEN 5/325MG TAB PO PRN ×2 (07:20→13:41)
[2020-10-15] MEDS: ASPIRIN 81 MG ECTAB PO SCH (08:42)
[2020-10-15] MEDS: carvediloL 6.25 MG TAB PO SCH (08:42)
[2020-10-15] MEDS: CYANOCOBALAMIN (VITAMIN B-12) 2,500 MCG TAB.SUBL SL SCH (08:42)
[2020-10-15] MEDS: TAMSULOSIN HCL 0.4 MG CAP PO SCH (08:43)
[2020-10-15] MEDS: rifAMPin 300 MG CAPSULE PO SCH (08:43)
[2020-10-15] MEDS: PANTOprazole 40 MG TAB PO SCH (08:43)
[2020-10-15] MEDS: CHOLECALCIFEROL 1,000 UNITS 25 MCG TAB PO SCH (08:43)
[2020-10-15] MEDS: DOCUSATE SODIUM 100 MG CAP PO SCH (08:43)
[2020-10-15] MEDS: CEROVITE ADV FORMULA TAB PO SCH (08:43)
[2020-10-15] MEDS: FENOFIBRATE NANOCRYSTALLIZED 145 MG TABLET PO SCH (08:43)
[2020-10-15] MEDS: GABAPENTIN 100 MG CAP PO SCH (08:43)
[2020-10-15] MEDS: INSULIN GLARGINE SOLOSTAR 100 UNITS/ML 3 ML PEN SC SCH (08:46)
[2020-10-15] MEDS: INSULIN ASPART 100 UNITS/ML 3 ML PEN SC SCH ×2 (08:46→12:39)
--- NOTE | 2020-10-15 09:32 | Orthopedic Progress Note ---
Date of Service October 15, 2020 Assessment & Plan (1) Wound dehiscence: POD #6, Left Knee I&D, Retinacular repair, and poly exchange. PT/ OT- WBAT with walker and hinged knee brace 0-30 degrees. DVT proph- ASA D/C planning-Home with home health services Culture- coag neg staph -oxacillin resistant. Vancomycin and rifampin as per [facility] infectious disease team. IV antibiotics arranged per case management. Plan for weekly lab draws and Vanco trough levels as per chart [facility] pharmacy Plan for discharge to home today with home health services for PT and IV antibiotics. Admission and Anticipated Discharge Date Admission Date: October 09, 2020 Subjective Postop day 6. Patient awake and alert this morning. No complaints. Pain controlled. Denies any shortness of breath, chest pain, lightheadedness. Physical Exam Physical Exam: Gennaro dressing is clean, dry, and intact. No erythema noted. Mild swelling. Patient has his hinged knee brace off at this time but on the bed. Calves are soft nontender. Neurovascular is intact. Toes are mobile. Results & Data ([facility]) Vital Signs (Past 12 Hours) Vital Signs Temp Pulse Resp BP Pulse Ox 10/15/20 07:04 37.1 C 78 16 123/72 92 10/15/20 00:06 36.7 C 82 16 123/66 92 10/14/20 21:41 81 145/72 H
[2020-10-15] MEDS ORDERED: VANCOMYCIN HCL 1,500 MG in SODIUM CHLORIDE 0.9% 500 ML IV SCH (10:00)
[2020-10-15 12:16] LABS: Albumin Level 2.9 gm/dl (3.4-5.0); Bilirubin Direct 0.3 mg/dl (0-0.2); Bilirubin,Total 0.8 mg/dl (0.2-1); Total Protein 6.5 gm/dl (6.4-8.2)
[2020-10-15] MEDS ORDERED: INSULIN ASPART 100 UNITS/ML 3 ML PEN SC SCH (16:30)
[2020-10-16] MEDS ORDERED: INSULIN ASPART 100 UNITS/ML 3 ML PEN SC SCH (07:30)
[2020-10-16] MEDS ORDERED: VANCOMYCIN TROUGH ONE (09:30)
--- NOTE | 2020-10-16 09:49 | Discharge Summary ---
Date of Service October 16, 2020 Admission HPI Per Admitting Provider Patient is an 80 year old male with PMHx significant for CAD, hx of HI, DM2, HTN, hyperlipidemia, GERD who presented to the office with left knee incision dehicsence and drainage. He underwent left TKA by Dr. Alcocer on 09/04/20. Since that time he has had multiple episodes of falling onto this knee. His wound did dehisce after one of the falls and was seen in the [facility] where it was irrigated and sutured. Since that time he has had persistent drainage from the area that was sutured. He presents today for I&D poly exchange. Patient denies headaches, sweats, fevers, chills, double vision, blurred vision, cough, sore throat, dysphagia, chest pain, sob, wheezing, n/v/d/c, numbness, tingling, fatigue, urinary symptoms, mood disorders. ROS positive for left knee pain. Admission Exam Per Admitting Provider Constitutional: well developed and well nourished; no acute distress ENMT: external ear and nose normal, oropharynx normal Neck: trachea midline, no thyromegaly Respiratory: normal respiratory effort, lungs clear to auscultation Cardiovascular: Rate/Rhythm: regular rate and regular rhythm Gastrointestinal (Abdomen): normal bowel sounds, soft, nontender, no hepatosplenomegaly Musculoskeletal: Gait: + antalgic gait (left) Knee: + surgical incision (distal left knee incision with sutures in place, mild serous drainage) and + limited ROM of knee (left); no deformity, no skin erythema and no ecchymosis Skin: no rashes, warm and dry Neurologic: normal touch/pain/proprioception Psychiatric: A+Ox3, euthymic affect Speech: normal rate/rhythm/volume of speech Lymphatic: no cervical or axillary lymphadenopathy Principal Diagnosis Left total knee wound dehiscence, medial retinacular tear, infection Discharge Exam Constitutional well developed and well nourished; no acute distress Respiratory normal respiratory effort Cardiovascular Rate/Rhythm: regular rate and regular rhythm Skin no rashes, warm and dry Discharge Data Allergies Allergy/AdvReac Type Severity Reaction Status Date / Time No Known Allergies Allergy Verified 10/09/20 07:56 Consultations 10/09/20 14:45 Consult Case Management - Discharge Planning Routine Consult Hospitalist Routine 10/10/20 09:31 Consult Infectious Diseases Routine Procedures Performed Operation Date: 10/09/20 09:25 Actual Procedures s Left Knee, irrigation and debridement total knee arthroplasty, (Left) - Mark Alcocer DO p posterior stabilized polyethylene exchange, left knee medial retinacular repair(Left)(Left) - Mark Alcocer DO Ordered Studies 10/09/20 05:00 US - OR guided needle placemen Routine 10/09/20 07:00 US - OR guided needle placemen Routine Hospital Course (1) Wound dehiscence: POD #6, Left Knee I&D, Retinacular repair, and poly exchange. PT/ OT- WBAT with walker and hinged knee brace 0-30 degrees. DVT proph- ASA D/C planning-Home with home health services Culture- coag neg staph -oxacillin resistant. Vancomycin and rifampin as per [facility] infectious disease team. IV antibiotics arranged per case management. Plan for weekly lab draws and Vanco trough levels as per [facility] Plan for discharge to home today with home health services for PT and IV antibiotics. POD #5, Left Knee I&D, Retinacular repair, and poly exchange. PT/ OT- WBAT with walker and hinged knee brace 0-30 degrees. DVT proph- ASA D/C planning-Home with home health services Culture- coag neg staph -sensitivities pending Pain management-switch from oxycodone to hydrocodone to achieve better pain control with po meds. On Ancef q8 hrs -ID consult pending POD #4, Left Knee I&D, Retinacular repair, and poly exchange. PT/ OT- WBAT with walker and hinged knee brace 0-30 degrees. DVT proph- ASA D/C planning- Inpatient Rehab. Intra op- Gram stain with Rare WBC's and rare gram positive Culture- coag neg staph -sensitivities pending On Ancef q8 hrs -ID consult pending Post op anemia- Hgb 8.4- stable POD #3, Left Knee I&D, Retinacular repair, and poly exchange. PT/ OT- WBAT with walker and hinged knee brace 0-30 degrees. DVT proph- ASA D/C planning- Inpatient Rehab. Intra op- Gram stain with Rare WBC's and rare gram positive Culture- coag neg staph -sensitivities pending On Ancef q8 hrs -ID consult pending Post op anemia- Hgb 8.4- stable POD #2, Left Knee I&D, Retinacular repair, and poly exchange. PT/ OT- WBAT with walker and hinged knee brace 0-30 degrees. DVT proph- ASA D/C planning- Inpatient Rehab. Intra op- Gram stain with Rare WBC's and rare gram positive Culture- coag neg staph On Ancef q8 hrs -ID consult pending Post op anemia- Hgb 8.4- stable As per medicine- BUN/ Cr- 33/1.89- Hx of renal failure. Intra op findings as above. POD #1, Left Knee I&D, Retinacular repair, and poly exchange. PT/ OT- WBAT with walker and hinged knee brace 0-30 degrees. DVT proph- ASA D/C planning- Inpatient Rehab. Intra op- Gram stain with Rare WBC's and rare gram positive Culture- Pending On Ancef q8 hrs Post op anemia- Hgb 8.0- Will discuss need for transfusion with medicine. As per medicine- BUN/ Cr- 33/1.89- Hx of renal failure. Intra op findings as above. Total Time Total Time Spent Total Time Spent (In Minutes): 20 Discharge Plan Discharge Items Patient Disposition: Home - Home Health Services Reason For Visit: Left Knee Incision Draining Discharge Diagnosis: Left Septic TKA Activity: Per Instructions section Non-emergency contact: Surgeon Call non-emergency contact if: your pain is not controlled, your temperature is above 101.5, your wound has increased redness and your wound has increased drainage Follow-up/Referrals: Christophe Aponte [Primary Care Provider] - Diet: Carb Consistent or DM2 Addtl Attending Provider Instructions: YOU WILL BE RECEIVING IV ANTIBIOTICS EVERY DAY OR EVERY OTHER DAY WELL DAILY ORAL ANTIBIOTICS. HOME HEALTH SERVICES WILL BE HELPING YOU WITH YOUR PT AND IV ANTIBIOTICS. YOU WILL BE HAVING YOUR BLOOD DRAWN WEEKLY, POSSIBLY TWICE WEEKLY TO CHECK YOUR ANTIBIOTIC LEVEL OF YOUR VANCOMYCIN AND TO SEE HOW YOUR BODY IS REPSPONDING TO THE ANTIBIOTICS. THE RESULTS OF THESE LAB DRAWS WILL BE SENT TO YOUR SURGEON AND TO INFECTIOUS DISEASE TEAM. USE YOUR HINGED KNEE BRACE AT ALL TIMES EXCEPT FOR SHOWERING UNTIL SEEN BACK IN THE OFFICE FOR YOUR FIRST FOLLOW UP VISIT. YOU CAN REMOVE YOUR BERNA DRESSING ON Monday10/17/20 OF THIS WEEK. KEEP THE WOUND COVERED WITH A DRESSING UNTIL SEEN BACK IN THE OFFICE. ACTIVITY RECOMMENDATIONS: SELF CARE INSTRUCTIONS AFTER TOTAL KNEE REPLACEMENT A. You may need to continue a physical therapy program after discharge from the hospital. There are several options available to you. Your doctor will assist you in selecting the best one for you. 1. An out-patient facility 2 to 3 times a week for therapy or home therapy. 2. Continue working on all exercises taught to you in the hospital. Your goals should be to increase bending of your knee to 90 degrees and beyond and to fully straighten your knee. B. You may progress at your own pace from walking with a walker or crutches to a cane; then to no assistive devices. C. Make walking a part of your daily routine. Be up as much as comfortable with rest periods throughout the day. Rest with leg elevation is very important. Use the ice wrap frequently for the first 3-4 weeks. D. There are no restrictions on activities. You may ride in a car, shop, parti cipate in energy administrator and all social activities. E. Wear the long elastic stockings (KIKA hose) 20 hours a day for 2 weeks after surgery. They can be removed several times a day for laundering and for a bath. F. You may shower, no tub baths until cleared by your doctor. SPECIAL CARE INSTRUCTIONS: VERY IMPORTANT TO READ AND REVIEW A. There are a few signs you need to watch for after you are home. Call [facility] [place] if you notice any of the followin. Increased severe knee pain. Some pain is expected especially when you exercise. 2. Increased swelling in your leg or knee; pain or swelling of the calf muscle in either lower leg. 3. Any fluid drainage from the incision. 4. Shortness of breath or chest pain. B. Please call [facility] [place] at if you have any concerns or questions about your operation or recovery. The doctor or his nurse will return your call promptly. C. You must take antibiotics before dental work, bladder, bowel or other surgery. Your doctor will provide you with a permanent care to carry describing th is precaution. IMPORTANT: * REMEMBER TO TAKE ASPIRIN, 81 MG, TWICE DAILY FOR 4 WEEKS UNLESS OTHERWISE DIRECTED. THIS IS YOUR BLOOD THINNER.. * CALL IF INCREASED PAIN, REDNESS, DRAINAGE OR FEVER GREATER THAT 101. * WEAR KIKA HOSE 20 HOURS PER DAY FOR 2 WEEKS. * BERNA dressing - This is a large suction dressing covering your incision. This will help pull any excess drainage from the wound and allow your incision to heal properly. You may shower with this if you can keep the unit outside of the shower. If any bleeding or leakage is noted please call your doctor's office. This will remain on your incision for 7 days and then should be removed. This can be done yourself or by the home nursing staff if applicable. The entire unit is disposable once removed. Once removed, keep incision clean and dry. If redness or drainage is noted, please call your surgeon. . FOLLOW UP VISIT: If appointment is not already scheduled: Please call [facility] [place] to make a follow-up appointment for 2 weeks after your surgery at . FOLLOW UP WITH YOUR PRIMARY CARE PHYSICIAN IN ONE WEEK FOR BLOOD SUGAR CHECKS AND RENAL FUNCTION CHECK. Stand-Alone Forms: My [facility], Opioid Pain Management, Smoking Cessation Medications and DC Order Prescriptions: New aspirin 81 mg Tablet,Delayed Release (Dr/Ec) 81 mg PO BID 30 Days Qty: 60 RF: 0 rifampin 300 mg Capsule 300 mg PO BID 42 Days Qty: 84 RF: 0 hydrocodone-acetaminophen 5-325 mg tablet 1 - 2 tab PO Q6H MDD 8 tabs PRN (Reason: pain) Qty: 30 RF: 0 vancomycin 1.5 gram recon soln 1.5 g IV Q24H Qty: 10 RF: 0 Continued atorvastatin 40 mg Tablet 40 mg PO PM RF: 0 carvedilol 6.25 mg Tablet 6.25 mg PO BID RF: 0 cyanocobalamin (vitamin B-12) [Vitamin B-12] 2,500 mcg Tablet, Sublingual 2,500 mcg SUBLINGUAL QAM RF: 0 alprazolam [Xanax] 1 mg Tablet 1 - 2 mg PO HS PRN (Reason: Anxiety) RF: 0 glipizide 10 mg Tablet 10 mg PO QAM RF: 0 omeprazole 40 mg Capsule,Delayed Release(Dr/Ec) 40 mg PO QAM RF: 0 tamsulosin 0.4 mg Capsule 0.4 mg PO QAM RF: 0 gabapentin 100 mg Capsule 100 mg PO QAM RF: 0 dutasteride 0.5 mg Capsule 0.5 mg PO QAM RF: 0 fenofibrate nanocrystallized 145 mg Tablet 145 mg PO QAM RF: 0 Centrum 18-400 mg-mcg Tablet 1 tab PO QAM RF: 0 cholecalciferol (vitamin D3) [Vitamin D3] 125 mcg (5,000 unit) Tablet 125 mcg PO QAM RF: 0 gabapentin 100 mg Capsule 200 mg PO HS RF: 0 polyethylene glycol 3350 [Miralax] 17 gram powder in packet 17 g PO DAILY PRN (Reason: constipation) Qty: 5 RF: 0 Discontinued oxycodone 5 mg tablet 5 mg PO Q6H MDD 6 PRN (Reason: pain) RF: 0 Discharge Orders: Discharge Order (Routine); Ordered 10/15/20 Ordered By: Derik Duncan/Other Patient Handouts: High Blood Sugar (Hyperglycemia), Managing Type 2 Diabetes, Peripherally Inserted Central ..., Discharge Instructions Changing ..., Caring for Your PICC Dc Admission Data Admit Date/Time: 10/09/20 13:49 Attending Provider: Mark Alcocer Admit Provider: Mark Alcocer Primary Care Provider: Christophe Aponte Other Providers: Kiran Wong ; Davi Holloway ; Mary López ; Raji Michelle I. ; Roland Hancock II ; Irina Lyon ; Linwood Slaughter Other Interventions: Discharge Summary Assessment (RN) Last Done: 10/15/20 11:48
== END 2020-10-15 18:10 | disposition home health service (06) | DRG 908 ==
LOC: ASU 07:29 → 3E 13:49